=== PATIENT | male | born 1975 | race African-American/Black ===

== ENCOUNTER 2019-12-21 16:02 | Inpatient (IN) | payer OTHER, SELFPAY ==
[2019-12-21] VITALS (11 sets, daily range): BP systolic 100–165; BP diastolic 54–116; PULSE 73–93; RESP 14–21; TEMP 36.6–37.4; O2SAT 10–100; BMI 31.3
--- NOTE | ~2019-12-21 | CT_ITS ---
EXAMINATION: CT abdomen pelvis w con EXAM DATE: 12/21/2019 17:38 INDICATION: Abdominal pain, bleeding. Feeling weak and dizzy. TECHNIQUE: Spiral CT of the abdomen and pelvis was performed following intravenous injection of 100 m L Omnipaque 350. Axial, coronal and sagittal images were reviewed. The dose-length product (DLP) fo r this examination was 914.60 mGy-cm. The exposure was tailored according to patient size (auto mA e xposure control), and iterative reconstruction (ASIR) was used as additional dose reduction technique . There is no prior study for comparison. FINDINGS: The liver, spleen, adrenal glands and pancreas are unremarkable. Gallbladder is unremarkab le. No biliary obstruction. Portal and splenic veins are patent. Kidneys enhance symmetrically. T here is no hydronephrosis. The prostate is unremarkable. The bladder is unremarkable. There is no retroperitoneal or pelvic lymphadenopathy. The appendix is normal. The stomach and small bowel are unremarkable. There is colonic fluid, corre late for diarrhea. No wall thickening or pneumatosis. No free intraperitoneal gas. The heart is nor mal in size. There are no pericardial or pleural effusions. The lung bases are unremarkable. There are no osteoblastic or osteolytic lesions identified. IMPRESSION: Colonic fluid, correlate for diarrhea. Reviewed, dictated and finalized at location A.
[2019-12-21 16:49] LABS: Mean Corpuscular HGB Conc 29.4 g/dl (32-36); Mean Corpuscular Hemoglobin 21.4 pg (26-34); Mean Corpuscular Volume 72.7 fl (80-100); Mean Platelet Volume 8.3 fl (7.4-10.4); Platelet Count Result 542 k/mm3 (150-375); Red Blood Count 1.87 M/mm3 (4.6-6.20); Red Cell Distribution Width 18.1 % (11.5-14.5); White Blood Count 11.5 K/mm3 (4.5-10.0)
[2019-12-21 16:59] LABS: Hematocrit 13.6 % (42.0-52.0)
[2019-12-21 17:00] LABS: Alanine Aminotransferase 197 U/L (4-50); Albumin Level 3.4 g/dL (3.5-5.1); Alkaline Phosphatase 57 U/L (38-126); Anion Gap 5 mmol/L (8-16); Aspartate Amino Transferase 122 U/L (17-59); Bilirubin,Total < 0.1 mg/dL (0.2-1.3); Blood Urea Nitrogen 23 mg/dL (9-20); Calcium 8.3 mg/dL (8.4-10.2); Carbon Dioxide 26 mmol/L (22-30); Chloride 109 mmol/L (98-107); Estimated CRCL calculation 80 ml/min; Estimated Glomerular Filt Rate > 60; Glucose 126 mg/dL (75-110); Potassium 4.4 mmol/L (3.4-5.0); Sodium 140 mmol/L (137-145)
[2019-12-21 17:09] LABS: INR 1.1; Partial Thromboplastin Time 24.6 SECONDS (22.3-36.8); Prothrombin Time 14.1 Seconds (11.1-14.7)
[2019-12-21 17:10] LABS: Lymphocytes Absolute Manual 4.02 K/mm3 (1.1-4.5); Lymphocytes Percent Manual 35 % (18-44); Monocytes Absolute Manual 0.46 K/mm3 (0.1-0.90); Monocytes Percent Manual 4 % (3-9); Neutrophils Percent Manual 61 % (46-73); Total Cells Counted 100
[2019-12-21 17:11] LABS: Hypochromasia 2+ (NORMAL); Nucleated Red Blood Cells 7 %; Platelet Estimate Increased (Adequate); Schistocytes 1+ (NORMAL); Target Cells 2+ (NORMAL)
[2019-12-21 17:12] LABS: Atypical Lymphocytes Present; Ovalocytes 1+ (NORMAL)
--- NOTE | 2019-12-21 17:33 | ED.GENADULT ---
HPI - General Adult General Chief complaint: GI Bleed <Mati Montes PA-C - Last Filed: 12/21/19 17:45> Stated complaint: blood in stool <Mati Montes PA-C - Last Filed: 12/21/19 17:45> Time Seen by Provider: 12/21/19 16:54 <Mati Montes PA-C - Last Filed: 12/21/19 17:45> Source: patient and family <Mati Montes PA-C - Last Filed: 12/21/19 17:45> Mode of arrival: ambulatory <Mati Montes PA-C - Last Filed: 12/21/19 17:45> Limitations: no limitations <Mati Montes PA-C - Last Filed: 12/21/19 17:45> History of Present Illness HPI narrative: Patient is a 44-year-old male who presents with GI bleeding for roughly 2 weeks or more worse in the last 2 to 3 days passing bright red blood with clots patient notes over the last several days has felt very fatigued and weak patient notes some cramping of the abdomen that is intermittent patient denies any other illness or complaints or having taken anything [id number] for his symptoms patient notes today after having a bloody stool sustained syncopal episode while getting up patient notes his symptoms worsen with standing from sitting or lying <Mati Montes PA-C - Last Filed: 12/21/19 17:45> Related Data Allergies/adverse reactions: Allergies Allergy/AdvReac Type Severity Reaction Status Date / Time Sulfa (Sulfonamide Allergy Swelling Verified 12/21/19 16:18 Antibiotics) <Mati Montes PA-C - Last Filed: 12/21/19 17:45> Review of Systems Review of Systems: All systems reviewed & are unremarkable except as noted in HPI and below <Mati Montes PA-C - Last Filed: 12/21/19 17:45> [facility] Surgical History Surgical History: Surgical History (Updated 12/21/19 @ 17:41 by Mati Montes PA-C) H/O splenectomy <Mati Montes PA-C - Last Filed: 12/21/19 17:45> Social History Social History: Social History (Updated 12/21/19 @ 17:41 by Mati Montes PA-C) Smoking status: Current some day smoker <OWEN Rice Last Filed: 12/21/19 17:45> Exam Narrative: Exam Narrative: GENERAL: Ill and pale-appearing, well-nourished, and in no acute distress. HEAD: Normocephalic, atraumatic. EYES: PERRLA and EOMI. ENT: Nares clear, no rhinorrhea or epistaxis. Mucous membranes moist. NECK: Supple. No adenopathy or masses. CHEST: Clear to auscultation. No respiratory distress. No wheezes rales or rhonchi HEART: Regular rate and rhythm. No murmur heard. Normal peripheral pulses. ABDOMEN: Soft, mild tenderness of the abdomen worse on the left, nondistended, normal active bowel sounds. EXTREMITIES: Normal range of motion. No edema. SKIN: Warm, dry, no rash. NEURO: No focal deficits. Alert and oriented x3. Cranial nerves II through XII grossly intact PSYCH: Normal mood and affect. <OWEN Rice Last Filed: 12/21/19 17:45> Course Course Emergency Course: Patient with blood products ordered will be hydrated admitted to the hospital with GI consultation managed by the hospitalist service hemodynamically stable agreeing to stay in hospital for his anemia secondary to GI bleed <OWEN Rice Last Filed: 12/21/19 17:45> Consultations Consultation #1: Discussed case with hospitalist and kindergarten paraprofessional to have accepted the patient and will consult <OWEN Rice Last Filed: 12/21/19 17:45> Date: 12/21/19 <OWEN Rice Last Filed: 12/21/19 17:45> Time: 17:42 <OWEN Rice Last Filed: 12/21/19 17:45> Vital Signs Vital signs: Vital Signs Temperature 36.6 C 12/21/19 16:14 Pulse Rate 93 12/21/19 16:14 Respiratory Rate 18 12/21/19 16:14 Blood Pressure 111/59 L 12/21/19 16:14 Pulse Oximetry 10 L 12/21/19 16:14 Temperature 37.2 C 12/21/19 19:14 Pulse Rate 88 12/21/19 19:14 Respiratory Rate 18 12/21/19 19:14 Blood Pressure 165/116 H 12/21/19 19:14 Puls
[2019-12-21] MEDS: PANTOPRAZOLE SODIUM IV 40 MG VIAL IV PUSH (17:38)
[2019-12-21] MEDS: SODIUM CHLORIDE 0.9% IV 1,000 ML 999 ML IV CONT (17:38)
[2019-12-21 18:04] LABS: Immature Reticulocyte Fraction 35.2 % (3.0-15.9); Reticulocyte Percent 3.46 % (0.7-4.3)
[2019-12-21 18:05] LABS: Reticulocytes Absolute 0.06 B/L (32.2-175.7)
[2019-12-21 18:06] LABS: Lactate Dehydrogenase 369 U/L (313-618); Lipase 37 U/L (23-300)
[2019-12-21 18:07] LABS: Lactate Dehydrogenase 371 U/L (313-618)
[2019-12-21 18:15] LABS: Transferrin 331 mg/dL (206-381)
[2019-12-21 18:53] LABS: Iron < 10 ug/dL (49-181)
[2019-12-21 19:03] LABS: Percent Iron Saturation 2 % (20-50)
[2019-12-21 19:13] LABS: Folic Acid 15.5 ng/mL (2.76->20)
[2019-12-21 19:25] LABS: Thyroid Stimulating Hormone Reflex 0.439 uIU/mL (0.465-4.68)
[2019-12-21 19:29] LABS: Ferritin 6.09 ng/mL (17.9-464)
--- NOTE | 2019-12-21 19:30 | PC.NURSE ---
REPORT TO CANDIDO CLARK. CARE TRANSFERRED.
[2019-12-21 19:35] LABS: Hepatitis B Surface Antigen Negative (Negative)
[2019-12-21 19:40] LABS: HAV RESULT Negative (Negative); Hepatitis B Core IgM Result Negative (Negative)
[2019-12-21 19:55] LABS: Hepatitis C Virus Antibody Reactive (Negative)
[2019-12-21 20:30] LABS: Creatine Kinase 125 U/L (55-170)
[2019-12-21] MEDS: TUBING, BLOOD PLUM PUMP TUBING 1 EACH XX (20:33)
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
[2019-12-21] MEDS: SODIUM CHLORIDE 0.9% IV 250 ML 30 ML IV CONT (22:32)
[2019-12-21] MEDS: ONDANSETRON INJ 4 MG/2 ML VIAL IV PUSH (22:37)
[2019-12-22] VITALS (24 sets, daily range): BP systolic 102–141; BP diastolic 44–98; PULSE 69–91; RESP 14–24; TEMP 35.9–36.9; O2SAT 97–100
[2019-12-22] MEDS: ACETAMINOPHEN 325 MG TABLET 650 MG PO (00:56)
[2019-12-22 01:05] LABS: Free T4 Free Thyroxine Reflex 0.95 ng/dL (0.78-2.19)
[2019-12-22 03:45] LABS: Total Triiodothyronine (T3) 1.35 NG/ML (0.97-1.69)
[2019-12-22 05:09] LABS: Mean Corpuscular HGB Conc 30.4 g/dl (32-36); Mean Corpuscular Hemoglobin 24.3 pg (26-34); Mean Platelet Volume 8.8 fl (7.4-10.4); Platelet Count Result 441 k/mm3 (150-375); Red Blood Count 2.55 M/mm3 (4.6-6.20); Red Cell Distribution Width 19.2 % (11.5-14.5); White Blood Count 10.5 K/mm3 (4.5-10.0)
[2019-12-22 05:33] LABS: Alanine Aminotransferase 157 U/L (4-50); Albumin Level 2.9 g/dL (3.5-5.1); Alkaline Phosphatase 50 U/L (38-126); Anion Gap 3 mmol/L (8-16); Aspartate Amino Transferase 97 U/L (17-59); Bilirubin,Total 0.2 mg/dL (0.2-1.3); Blood Urea Nitrogen 17 mg/dL (9-20); Calcium 7.9 mg/dL (8.4-10.2); Carbon Dioxide 25 mmol/L (22-30); Chloride 112 mmol/L (98-107); Estimated CRCL calculation 75 ml/min; Estimated Glomerular Filt Rate > 60; Glucose 87 mg/dL (75-110); Magnesium 2.4 mg/dL (1.6-2.3); Potassium 4.1 mmol/L (3.4-5.0); Sodium 140 mmol/L (137-145)
[2019-12-22 06:07] LABS: Hematocrit 20.4 % (42.0-52.0); Hemoglobin 6.2 g/dL (14.0-18.0)
[2019-12-22 06:14] LABS: Eosinophils Absolute Manual 0.31 K/mm3 (0.02-0.5); Eosinophils Percent Manual 3 % (0-4); Hypochromasia 2+ (NORMAL); Lymphocytes Absolute Manual 4.41 K/mm3 (1.1-4.5); Monocytes Absolute Manual 0.63 K/mm3 (0.1-0.90); Monocytes Percent Manual 6 % (3-9); Neutrophils Percent Manual 49 % (46-73); Nucleated Red Blood Cells 3 %; Platelet Estimate Adequate (Adequate); Total Cells Counted 100
[2019-12-22 06:16] LABS: Ovalocytes 1+ (NORMAL); Target Cells 1+ (NORMAL)
[2019-12-22] MEDS: SODIUM CHLORIDE 0.9% IV 250 ML 30 ML IV CONT (06:55)
[2019-12-22] MEDS: PANTOPRAZOLE SODIUM IV 40 MG VIAL IV PUSH ×2 (08:53→21:07)
[2019-12-22 09:51] LABS: Hematocrit 23.5 % (42.0-52.0); Hemoglobin 7.4 g/dL (14.0-18.0)
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
[2019-12-22] MEDS: LACTATED RINGERS 1,000 ML 150 ML IV CONT (12:10)
--- NOTE | 2019-12-22 12:46 | WPDANESEPPF ---
Anes - Initial Pre Proc Eval Procedure: Operation Date: 12/22/19 13:00 Proposed Procedures p Esophagogastroduodenoscopy - Gideon Coughlin MD Date/Time: 12/22/19 12:46 Surgeon: Ammy Martin PA-C Pre Op Diagnosis: Bloody stools, abdominal pain, near syncope. Patient Data Age: 44 Gender: M Height: 5 ft 10 in Weight: 99.1 kg Last Vital Signs Temp 97.7 F 12/22/19 12:11 Pulse 71 12/22/19 12:11 Resp 16 12/22/19 12:11 BP 132/68 12/22/19 12:11 Pulse Ox 99 12/22/19 12:11 Allergies Allergy/AdvReac Type Severity Reaction Status Date / Time Sulfa (Sulfonamide Allergy Swelling Verified 12/21/19 16:18 Antibiotics) Home Medications Medication Instructions Recorded Confirmed Type B-complex with vitamin C [Vitamin 1 cap PO DAILY 12/21/19 12/21/19 History B Complex With C] amino acids [Amino Acid] 1 cap PO DAILY 12/21/19 12/21/19 History aspirin [Adult Aspirin] 81 mg PO DAILY 12/21/19 12/21/19 History multivit with min-folic acid 1 tablet PO DAILY 12/21/19 12/21/19 History [Adult One Daily Multivitamin] Laboratory Tests 12/21/19 12/21/19 12/21/19 16:35 16:35 16:35 WBC 11.5 K/mm3 H K/mm3 (4.5-10.0) RBC 1.87 M/mm3 L M/mm3 (4.6-6.20) Hgb 4.0 g/dL L* g/dL (14.0-18.0) Hct 13.6 % L* % (42.0-52.0) MCV 72.7 fl L fl (80-100) MCH 21.4 pg L pg (26-34) MCHC 29.4 g/dl L g/dl (32-36) RDW 18.1 % H % (11.5-14.5) Plt Count 542 k/mm3 H k/mm3 (150-375) MPV 8.3 fl fl (7.4-10.4) Immature Gran % (Auto) Not Reportable Neut % (Auto) Not Reportable Lymph % (Auto) Not Reportable Blanco % (Auto) Not Reportable Eos % (Auto) Not Reportable Baso % (Auto) Not Reportable Lymph # (Auto) Not Reportable [place] # (Auto) Not Reportable Eos # (Auto) Not Reportable Baso # (Auto) Not Reportable Abs Immat Gran (auto) Not Reportable Absolute Neuts (auto) Not Reportable Absolute Nucleated RBC Not Reportable Total Counted 100 Neutrophils % (Manual) 61 % % (46-73) Lymphocytes % (Manual) 35 % % (18-44) Monocytes % (Manual) 4 % % (3-9) Eosinophils % (Manual) Nucleated RBC % Not Reportable Abs Lymphs (Manual) 4.02 K/mm3 K/mm3 (1.1-4.5) Abs Monocytes (Manual) 0.46 K/mm3 K/mm3 (0.1-0.90) Absolute Eos (Manual) Nucleated RBCs 7 % % Atypical Lymphocytes Present Platelet Estimate Increased (Adequate) Hypochromasia 2+ (NORMAL) Target Cells 2+ (NORMAL) Ovalocytes 1+ (NORMAL) Schistocytes 1+ (NORMAL) Absolute Retic Percent Retic Immature Retic Fraction Retic Hgb Content Haptoglobin PT 14.1 Seconds Seconds (11.1-14.7) INR 1.1 APTT 24.6 SECONDS SECONDS (22.3-36.8) Sodium 140 mmol/L mmol/L (137-145) Potassium 4.4 mmol/L mmol/L (3.4-5.0) Chloride 109 mmol/L H mmol/L (98-107) Carbon Dioxide 26 mmol/L mmol/L (22-30) Anion Gap 5 mmol/L L mmol/L (8-16) BUN 23 mg/dL H mg/dL (9-20) Creatinine 1.20 mg/dL mg/dL (0.7-1.3) Estim Creat Clear Calc 80 ml/min ml/min Estimated GFR > 60 (59 - ) Glucose 126 mg/dL H mg/dL (75-110) Calcium 8.3 mg/dL L mg/dL (8.4-10.2) Magnesium Iron TIBC % Saturation Transferrin Ferritin Total Bilirubin < 0.1 mg/dL L mg/dL (0.2-1.3) Direct Bilirubin AST 122 U/L H U/L (17-59) ALT 197 U/L H U/L (4-50) Alkaline Phosph
--- NOTE | 2019-12-22 13:51 | PM.IMPN ---
Progress Note: A&P Assessment and Plan (1) Profound anemia: Qualifiers: Anemia type: other cause Code(s): D64.9 - Anemia, unspecified Status: Acute Assessment and Plan: Secondary to acute GI blood loss. Hemoglobin at presentation was 4.0. He was transfused a total of 4 units. Hgb stabilized at 7.4. Iron studies are consistent with iron deficiency anemia secondary to acute blood loss. Continue to monitor H&H closely and transfuse as needed Will plan to initiate oral iron supplementation at discharge. (2) Acute GI bleeding: Code(s): K92.2 - Gastrointestinal hemorrhage, unspecified Status: Acute Assessment and Plan: He had noticed blood in his stools for 18 days that was described as dark maroon and mixed with clots, occasionally with bright red blood. This is felt to be secondary to duodenal ulcer which was discovered on EGD today. No evidence of ongoing bleeding seen on EGD. monitor H&H as above Avoid NSAIDs and aspirin (3) Duodenal ulcer: Code(s): K26.9 - Duodenal ulcer, unspecified as acute or chronic, without hemorrhage or perforation Status: Acute Assessment and Plan: Evident on EGD today performed by Dr. Coughlin. General surgery is following and recommendations are appreciated Continue pantoprazole 40 mg b.i.d. [place] diet per GI recommendations (4) Elevated LFTs: Code(s): R79.89 - Other specified abnormal findings of blood chemistry Status: Acute Assessment and Plan: LFTs elevated at presentation with unclear etiology. CK within normal limits. Hepatitis-C antibody was reactive Which could explain elevation. LFTs improved today, though still elevated. HCV RNA is pending. Continue to monitor LFTs (5) Tobacco use: Code(s): Z72.0 - Tobacco use Status: Acute Assessment and Plan: He smokes half pack per day. He has declined the need for a nicotine patch. Continue to encourage smoking cessation (6) Near syncope: Code(s): R55 - Syncope and collapse Status: Acute Assessment and Plan: He reported an episode on 12/21/2019 in which he felt lightheaded, had darkening of his vision, and fell onto his couch. this is secondary to hypovolemia from blood loss and profound anemia. No further symptoms and no additional episodes of syncope or presyncope. Continue to monitor H&H as above and transfuse as needed with Hgb threshold <7.0. Subjective Date/time seen: 12/22/19 13:51 Interval history: Date of service: 12/22/2019 Kahlil Faulkner is a 44-year-old male with a history of tobacco use who is seen in follow-up for acute upper GI bleed. He has just returned from EGD performed this afternoon and he tolerated the procedure well. He reports that he is feeling much better today than he has in several days. his abdominal pain is significantly improved, though he still notes some vague epigastric discomfort. He has not eaten anything yet but is feeling hungry and is eager to eat. he has not had any additional episodes of bloody stools. Last bowel movement was yesterday. He denies any additional episodes of bleeding. He denies dizziness or lightheadedness. He was able to ambulate to the restroom without difficulty and remained asymptomatic. He denies shortness of breath, chest pain, palpitations, weakness, or fatigue. he has a mild headache. He has no additional concerns at this time. Review of Systems Review of Systems: Narrative: Twelve systems with pertinent positives and negatives as per HPI. Exam Narrative: Exam Narrative: Mr. Faulkner is a well-nourished, well-appearing 44-year-old male who is lying supine in bed. He appears comfortable and is in NARD. HR 74, BP 102/57, T 97.5?, 98% on room air Neuro: awake, alert and oriented x4, speech clear, no focal neuro deficits noted HEENMT: normocephalic, atraumatic, EOMI, sclerae anicteric
[2019-12-22] MEDS: FERROUS SULFATE 324 MG TABLET PO (17:33)
--- NOTE | 2019-12-22 18:13 | PC.NURSE ---
Pt medical status - report given to Richard RN- pt transferred to room 240 via bed accompanied by staff- personal belongings with pt
[2019-12-22 18:29] LABS: Hematocrit 23.6 % (42.0-52.0); Hemoglobin 7.6 g/dL (14.0-18.0)
--- NOTE | 2019-12-22 18:31 | PC.NURSE ---
This patient, Kahlil Faulkner, was received from IMU on 12/22/19 at 1831. Patient/family oriented to unit policies and routines
[2019-12-23] VITALS (7 sets, daily range): BP systolic 96–144; BP diastolic 55–73; PULSE 71–85; RESP 18–20; TEMP 36.2–36.6; O2SAT 97–100
[2019-12-23] MEDS: diphenhydrAMINE HCl CAP 25 MG CAPSULE PO (01:43)
[2019-12-23] MEDS: ACETAMINOPHEN 325 MG TABLET 650 MG PO (01:43)
[2019-12-23 06:10] LABS: Hematocrit 22.2 % (42.0-52.0); Mean Corpuscular HGB Conc 31.5 g/dl (32-36); Mean Corpuscular Hemoglobin 24.7 pg (26-34); Mean Corpuscular Volume 78.4 fl (80-100); Mean Platelet Volume 8.3 fl (7.4-10.4); Platelet Count Result 409 k/mm3 (150-375); Red Blood Count 2.83 M/mm3 (4.6-6.20); Red Cell Distribution Width 18.6 % (11.5-14.5); White Blood Count 6.5 K/mm3 (4.5-10.0)
[2019-12-23 06:38] LABS: Alanine Aminotransferase 141 U/L (4-50); Albumin Level 2.9 g/dL (3.5-5.1); Alkaline Phosphatase 48 U/L (38-126); Anion Gap 0 mmol/L (8-16); Aspartate Amino Transferase 89 U/L (17-59); Bilirubin Indirect 0.2 mg/dL (0-1.1); Bilirubin,Total 0.2 mg/dL (0.2-1.3); Blood Urea Nitrogen 15 mg/dL (9-20); Calcium 8.1 mg/dL (8.4-10.2); Carbon Dioxide 28 mmol/L (22-30); Chloride 110 mmol/L (98-107); Estimated CRCL calculation 75 ml/min; Estimated Glomerular Filt Rate > 60; Glucose 110 mg/dL (75-110); Sodium 138 mmol/L (137-145)
[2019-12-23 06:51] LABS: Potassium 3.8 mmol/L (3.4-5.0)
[2019-12-23] MEDS: SODIUM CHLORIDE 0.9% IV 250 ML 30 ML IV CONT (07:55)
[2019-12-23] MEDS: FERROUS SULFATE 324 MG TABLET PO ×2 (07:55→18:10)
[2019-12-23] MEDS: PANTOPRAZOLE SODIUM IV 40 MG VIAL IV PUSH ×2 (07:56→21:25)
--- NOTE | 2019-12-23 08:16 | WPDANESPN ---
Anes - Prog Note Post-Op Date/Time: 12/23/19 08:16 Cardiovascular status: normal Respiratory status: normal Airway patency: baseline Mental status: baseline Post-Op hydration status: normal Vital Signs: Last Vital Signs Temp 36.2 C L 12/23/19 07:50 Pulse 71 12/23/19 07:50 Resp 18 12/23/19 07:50 BP 117/63 12/23/19 07:50 Pulse Ox 97 12/23/19 07:50 Pain Score (VAS): 1 I/O: Intake & Output 12/22/19 12/23/19 12/23/19 23:59 07:59 15:59 Intake Total 480 650 Output Total 550 Balance 480 100 Laboratory Tests 12/23/19 05:39 12/23/19 05:39 12/21/19 12/22/19 12/22/19 16:35 09:36 18:12 WBC RBC Hgb 7.4 L 7.6 L Hct 23.5 L 23.6 L MCV MCH MCHC RDW Plt Count MPV Sodium Potassium Chloride Carbon Dioxide Anion Gap BUN Creatinine Estim Creat Clear Calc Estimated GFR Glucose Calcium Total Bilirubin Direct Bilirubin Indirect Bilirubin AST ALT Alkaline Phosphatase Total Protein Albumin Blood Type O Positive Antibody Screen Negative Crossmatch See Detail 12/23/19 12/23/19 05:39 05:39 WBC 6.5 RBC 2.83 L Hgb 7.0 L Hct 22.2 L MCV 78.4 L MCH 24.7 L MCHC 31.5 L RDW 18.6 H Plt Count 409 H MPV 8.3 Sodium 138 Potassium 3.8 Chloride 110 H Carbon Dioxide 28 Anion Gap 0 L BUN 15 Creatinine 1.30 Estim Creat Clear Calc 75 Estimated GFR > 60 Glucose 110 Calcium 8.1 L Total Bilirubin 0.2 Direct Bilirubin 0.0 Indirect Bilirubin 0.2 AST 89 H ALT 141 H Alkaline Phosphatase 48 Total Protein 6.0 L Albumin 2.9 L Blood Type Antibody Screen Crossmatch Patient Feedback: Patient satisfied with anesthetic care.
--- NOTE | 2019-12-23 08:33 | WPDGIPROGNO ---
Progress Note: A&P Assessment and Plan (1) Duodenal ulcer: Code(s): K26.9 - Duodenal ulcer, unspecified as acute or chronic, without hemorrhage or perforation Status: Acute Assessment and Plan: continue with ppi bid, avoid nsaid's no signs of bleeding (2) Acute GI bleeding: Code(s): K92.2 - Gastrointestinal hemorrhage, unspecified Status: Acute Assessment and Plan: he is receiving another unit of blood transfusion, then monitor hb (3) Profound anemia: Qualifiers: Anemia type: other cause Code(s): D64.9 - Anemia, unspecified Status: Acute Assessment and Plan: he will need outpatient colonoscopy to be done by Dr Coughlin (4) Near syncope: Code(s): R55 - Syncope and collapse Status: Acute (5) Elevated LFTs: Code(s): R79.89 - Other specified abnormal findings of blood chemistry Status: Acute Assessment and Plan: probably from HCV, awaiting HCV RNA (patient admits history of snorting cocaine years ago) (6) Hepatitis C antibody positive in blood: Code(s): R76.8 - Other specified abnormal immunological findings in serum Status: Acute Subjective Date/time seen: 12/23/19 08:33 Interval history: Dr Coughlin found several small cratered ulcers in duodenum, non-bleeding. Patient is eating today regular breakfast, no abdominal pain or melena. He is getting another unit of PRBC Review of Systems Review of Systems: All systems reviewed & are unremarkable except as noted in HPI and below Exam Const: General: comfortable and no acute distress HENMT: General nose exam: Normal nares present Eyes: General: appearance normal, both eyes and all related structures Neck: Neck: no JVD Resp: Auscultation: clear to auscultation bilaterally Cardio: Rate: regular rate Rhythm: regular rhythm GI: Inspection: non-distended GI Palp: Yes Soft to palpation Skin: General skin exam: normal color Neuro: General: gait normal Speech: normal speech Extrem: General: normal to inspection Psych: Mental Status: mental status grossly normal Objective Data Vital Signs Vital Signs: Vital Signs - 24 hr 12/22/19 10:00 12/22/19 12:00 12/22/19 12:11 Temperature 97.7 F Pulse Rate 72 89 71 Respiratory Rate 16 Blood Pressure 132/68 Pulse Oximetry 99 12/22/19 13:34 12/22/19 13:44 12/22/19 13:54 Temperature Pulse Rate 84 77 77 Respiratory Rate 24 H 14 14 Blood Pressure 109/98 H 118/74 122/59 L Pulse Oximetry 97 97 99 12/22/19 14:20 12/22/19 16:00 12/22/19 18:30 Temperature 97.4 F L 97.2 F L 98.0 F Pulse Rate 74 70 89 Respiratory Rate 16 16 16 Blood Pressure 121/87 116/58 L 121/59 L Pulse Oximetry 100 100 100 12/22/19 20:00 12/22/19 23:57 12/23/19 04:00 Temperature 97.5 F L 97.7 F 97.5 F L Pulse Rate 79 71 75 Respiratory Rate 18 18 20 Blood Pressure 114/58 L 141/61 H 96/66 L Pulse Oximetry 100 100 100 12/23/19 07:50 Temperature 97.1 F L Pulse Rate 71 Respiratory Rate 18 Blood Pressure 117/63 Pulse Oximetry 97 Intake/Output Intake/Output: Intake & Output 12/20/19 12/21/19 12/22/19 12/23/19 23:59 23:59 23:59 23:59 Intake Total 1350 1954 650 Output Total 1450 550 Balance 1350 504 100 Meds/Results Medications: Active Medications Generic Name Dose Route Start Last Admin Trade Name Freq PRN Reason Stop Dose Admin Acetaminophen 650 mg 12/22/19 00:42 12/23/19 01:43 Acetaminophen 325 Mg Tablet PO 650 mg Q4H PRN Administration Pain Rated 1-3 Ferrous Sulfate 324 mg 12/22/19 17:00 12/23/19 07:55 Ferrous Sulfate 324 Mg Tablet PO 324 mg BIDWM MATTHEW Administration Sodium Chloride 250 mls @ 30 mls/hr 12/23/19 06:22 12/23/19 07:55 Normal Saline Iv IV CONT 12/23/19 14:41 30 mls/hr .[id number] STA Administration Ondansetron HCl 4 mg 12/21/19 17:45 12/21/19 22:37 Ondansetron Inj 4 Mg/2 Ml Vial IV PUSH 4 mg Q4H PRN Administration Naus
--- NOTE | 2019-12-23 10:37 | PM.IMPN ---
Progress Note: A&P Assessment and Plan (1) Profound anemia: Qualifiers: Anemia type: other cause Code(s): D64.9 - Anemia, unspecified Status: Acute Assessment and Plan: Secondary to acute GI blood loss. Hemoglobin at presentation was 4.0 and he was transfused 4 units of pRBC. Hgb stabilized. Iron studies are consistent with iron deficiency anemia secondary to acute blood loss. Hemoglobin this morning was 7.0 and blood pressure was low, however patient was asymptomatic. Currently receiving 1 unit pRBC. Repeat H&H 1 hour following transfusion. Continue to monitor H&H closely and transfuse as needed continue p.o. iron supplementation Outpatient colonoscopy to be scheduled per GI recommendations (2) Acute GI bleeding: Code(s): K92.2 - Gastrointestinal hemorrhage, unspecified Status: Acute Assessment and Plan: He had noticed blood in his stools for 18 days that was described as dark maroon and mixed with clots, occasionally with bright red blood. This is felt to be secondary to duodenal ulcer which was discovered on EGD 12/21. No evidence of ongoing bleeding seen on EGD. monitor H&H as above Avoid NSAIDs and aspirin (3) Duodenal ulcer: Code(s): K26.9 - Duodenal ulcer, unspecified as acute or chronic, without hemorrhage or perforation Status: Acute Assessment and Plan: Evident on EGD performed by Dr. Coughlin on 12/22/2019. GI is following and recommendations are appreciated Continue pantoprazole 40 mg b.i.d. Leon diet per GI recommendations (4) Elevated LFTs: Code(s): R79.89 - Other specified abnormal findings of blood chemistry Status: Acute Assessment and Plan: LFTs elevated at presentation with unclear etiology. CK within normal limits. Hepatitis-C antibody was reactive which could explain elevation. LFTs improved today, though still elevated. HCV RNA is pending. Continue to monitor LFTs (5) Tobacco use: Code(s): Z72.0 - Tobacco use Status: Acute Assessment and Plan: He reports he typically smoked 1/2 pack per day, though recently has cut down significantly as smoking was making him lightheaded. Before coming to the hospital he was smoking maybe 1-2 cigarettes per day. He is interested in complete smoking cessation as he is already significantly reduced his daily cigarettes. I counseled him on smoking cessation for approximately 6 minutes. He has declined the need for a nicotine patch. (6) Near syncope: Code(s): R55 - Syncope and collapse Status: Acute Assessment and Plan: He reported an episode on 12/21/2019 in which he felt lightheaded, had darkening of his vision, and fell onto his couch. This is secondary to hypovolemia from blood loss and profound anemia. No further symptoms and no additional episodes of syncope or presyncope. Continue to monitor H&H as above and transfuse as needed with Hgb threshold <7.0. Subjective Date/time seen: 12/23/19 10:37 Interval history: Date of service: 12/22/2019 Kahlil Faulkner is a 44-year-old male with a history of tobacco use who is seen in follow-up for acute upper GI bleed. he is currently receiving another unit of blood as his hemoglobin declined again this morning. He remained asymptomatic and continues to report that he is feeling well. He has not had any additional episodes of bloody stools. He has not had any episodes of dizziness or lightheadedness but also notes that he has not gotten up yet today. He continues to endorse very mild epigastric discomfort that has improved significantly. his appetite has been good. He denies shortness of breath, palpitations, fatigue. no headaches. is no additional concerns at this time. Review of Systems Review of Systems: Narrative: Twelve systems reviewed with pertinent positives and negatives as per HPI. Exam Narrative: Exam Narrative:
[2019-12-23 13:26] LABS: Hematocrit 25.8 % (42.0-52.0); Hemoglobin 8.3 g/dL (14.0-18.0)
[2019-12-23 18:28] LABS: Hematocrit 25.7 % (42.0-52.0); Hemoglobin 8.1 g/dL (14.0-18.0)
[2019-12-24 05:49] LABS: Hematocrit 25.9 % (42.0-52.0); Hemoglobin 8.1 g/dL (14.0-18.0); Mean Corpuscular HGB Conc 31.3 g/dl (32-36); Mean Corpuscular Hemoglobin 25.6 pg (26-34); Mean Platelet Volume 8.9 fl (7.4-10.4); Platelet Count Result 411 k/mm3 (150-375); Red Blood Count 3.16 M/mm3 (4.6-6.20); Red Cell Distribution Width 18.8 % (11.5-14.5); White Blood Count 6.9 K/mm3 (4.5-10.0)
[2019-12-24 06:00] VITALS: BP 110/56; PULSE 68; RESP 18; TEMP 36.2; O2SAT 100
[2019-12-24 06:14] LABS: Alanine Aminotransferase 160 U/L (4-50); Albumin Level 3.1 g/dL (3.5-5.1); Alkaline Phosphatase 49 U/L (38-126); Anion Gap 3 mmol/L (8-16); Aspartate Amino Transferase 101 U/L (17-59); Bilirubin,Total 0.1 mg/dL (0.2-1.3); Blood Urea Nitrogen 11 mg/dL (9-20); Calcium 8.4 mg/dL (8.4-10.2); Carbon Dioxide 26 mmol/L (22-30); Chloride 110 mmol/L (98-107); Estimated CRCL calculation 81 ml/min; Estimated Glomerular Filt Rate > 60; Glucose 100 mg/dL (75-110); Sodium 139 mmol/L (137-145)
[2019-12-24] MEDS: FERROUS SULFATE 324 MG TABLET PO ×2 (08:19→17:14)
[2019-12-24] MEDS: PANTOPRAZOLE SODIUM IV 40 MG VIAL IV PUSH ×2 (08:19→20:08)
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
--- NOTE | 2019-12-24 11:37 | PM.IMPN ---
Progress Note: A&P Assessment and Plan (1) Profound anemia: Qualifiers: Anemia type: other cause Code(s): D64.9 - Anemia, unspecified Status: Acute Assessment and Plan: Secondary to acute GI blood loss. Hemoglobin at presentation was 4.0 and he was transfused 4 units of pRBC. Hgb stabilized. Iron studies are consistent with iron deficiency anemia secondary to acute blood loss. On 12/22, Hgb was 7.0 and BP was low, therefore he was transfused an additional unit. Hgb 8.1 and Hct 25.9 today. Episode of bright red bleeding per rectum last night. Continue to monitor H&H closely and transfuse as needed with Hgb threshold <7.0 continue p.o. iron supplementation Given episode of brbpr, plan for inpatient colonoscopy tomorrow (2) Acute GI bleeding: Code(s): K92.2 - Gastrointestinal hemorrhage, unspecified Status: Acute Assessment and Plan: He had noticed blood in his stools for 18 days that was described as dark maroon and mixed with clots, occasionally with bright red blood. This is, at least in part, secondary to duodenal ulcer which was discovered on EGD 12/21. No evidence of ongoing bleeding seen on EGD. Episode of brbpr last night as noted above. Appreciate GI recommendations monitor H&H as above Avoid NSAIDs and aspirin Inpatient colonoscopy tomorrow (3) Duodenal ulcer: Code(s): K26.9 - Duodenal ulcer, unspecified as acute or chronic, without hemorrhage or perforation Status: Acute Assessment and Plan: Evident on EGD performed by Dr. Coughlin on 12/22/2019. GI is following and recommendations are appreciated Continue pantoprazole 40 mg b.i.d. [place] diet per GI recommendations (4) Elevated LFTs: Code(s): R79.89 - Other specified abnormal findings of blood chemistry Status: Acute Assessment and Plan: LFTs elevated at presentation with unclear etiology. CK within normal limits. Hepatitis-C antibody was reactive which could explain elevation. Minor increase in LFTs today but still improved from presentation. ALP wnl. HCV RNA is pending. Continue to monitor LFTs (5) Tobacco use: Code(s): Z72.0 - Tobacco use Status: Acute Assessment and Plan: He reports he typically smoked 1/2 pack per day, though recently has cut down significantly as smoking was making him lightheaded given his anemia. Before coming to the hospital he was smoking maybe 1-2 cigarettes per day. He is interested in complete smoking cessation as he is already significantly reduced his daily cigarettes. I counseled him on smoking cessation for approximately 6 minutes. He has declined the need for a nicotine patch. (6) Near syncope: Code(s): R55 - Syncope and collapse Status: Acute Assessment and Plan: He reported an episode on 12/21/2019 in which he felt lightheaded, had darkening of his vision, and fell onto his couch. This is secondary to hypovolemia from blood loss and profound anemia. No further symptoms and no additional episodes of syncope or presyncope. Continue to monitor H&H as above and transfuse as needed with Hgb threshold <7.0. Subjective Date/time seen: 12/24/19 11:37 Interval history: Date of service: 12/24/2019 Kahlil Faulkner is a 44-year-old male with a history of tobacco use who is seen in follow-up for acute upper GI bleed. he had an episode of bright red bleeding per rectum last night. He remained asymptomatic and continues to report that he is feeling well. He reported mild pain with passage of stool and thinks that he might have been straining. He has not had any dizziness, lightheadedness, shortness of breath, chest pain, or palpitations. His appetite has been good. No headaches. Denies epigastric pain. He has no additional concerns at this time. Review of Systems Review of Systems: Narrative: Twelve systems reviewed with pertinent positives and ne
[2019-12-24 14:00] VITALS: BP 135/72; PULSE 77; RESP 18; TEMP 36.4; O2SAT 100
[2019-12-24] MEDS: PEG (High)/E-LYTE SOLN 4,000 ML BTL 4000 ML PO (16:09)
[2019-12-24] MEDS: BISACODYL 5 MG TABLET EC 20 MG PO (17:14)
[2019-12-24 21:46] VITALS: BP 138/87; PULSE 64; RESP 16; TEMP 36.7; O2SAT 100
[2019-12-25] MEDS: MAGNESIUM CITRATE 300 ML BTL PO (04:03)
[2019-12-25 05:56] VITALS: BP 142/62; PULSE 62; RESP 16; TEMP 36.7; O2SAT 96
[2019-12-25 05:58] LABS: Hematocrit 27.8 % (42.0-52.0); Hemoglobin 8.5 g/dL (14.0-18.0); Mean Corpuscular HGB Conc 30.6 g/dl (32-36); Mean Corpuscular Hemoglobin 25.4 pg (26-34); Mean Platelet Volume 8.8 fl (7.4-10.4); Platelet Count Result 444 k/mm3 (150-375); Red Blood Count 3.35 M/mm3 (4.6-6.20); Red Cell Distribution Width 19.2 % (11.5-14.5); White Blood Count 14.3 K/mm3 (4.5-10.0)
[2019-12-25 06:09] LABS: Alanine Aminotransferase 185 U/L (4-50); Albumin Level 3.5 g/dL (3.5-5.1); Alkaline Phosphatase 59 U/L (38-126); Anion Gap 8 mmol/L (8-16); Aspartate Amino Transferase 120 U/L (17-59); Bilirubin,Total 0.2 mg/dL (0.2-1.3); Blood Urea Nitrogen 10 mg/dL (9-20); Calcium 8.6 mg/dL (8.4-10.2); Carbon Dioxide 26 mmol/L (22-30); Chloride 106 mmol/L (98-107); Estimated CRCL calculation 81 ml/min; Estimated Glomerular Filt Rate > 60; Glucose 84 mg/dL (75-110); Potassium 3.6 mmol/L (3.4-5.0); Sodium 140 mmol/L (137-145)
[2019-12-25] MEDS: PANTOPRAZOLE SODIUM IV 40 MG VIAL IV PUSH (09:00)
--- NOTE | 2019-12-25 09:45 | PC.NURSE ---
To GI Lab per IFRAH lakhani. Report given.
[2019-12-25 10:24] VITALS: BP 118/70; PULSE 66; RESP 18; TEMP 36.8; O2SAT 98
[2019-12-25] MEDS: LACTATED RINGERS 1,000 ML 150 ML IV CONT (10:28)
[2019-12-25 11:22] VITALS: BP 82/40; PULSE 84; RESP 16; O2SAT 98
[2019-12-25 11:32] VITALS: BP 104/56; PULSE 74; RESP 18; O2SAT 100
[2019-12-25 11:42] VITALS: BP 104/60; PULSE 73; RESP 19; O2SAT 100
--- NOTE | 2019-12-25 12:01 | PC.NURSE ---
Returned from GI Lab. Report received from AMBER Torres.
[2019-12-25 14:00] VITALS: BP 130/64; PULSE 72; RESP 15; TEMP 37.1; O2SAT 100
[2019-12-25 14:38] LABS: Basophils Absolute Auto 0.1 K/mm3 (0.0-0.1); Basophils Percent Auto 0.7 % (0.2-1.2); Eosinophils Absolute Auto 0.2 K/mm3 (0-0.3); Eosinophils Percent Auto 1.6 % (0-4.4); Hematocrit 28.5 % (42.0-52.0); Hemoglobin 8.8 g/dL (14.0-18.0); Immature Granulocyte Absolute 0.04 K/mm3 (0.00-0.031); Immature Granulocyte Percent A 0.3 % (0-0.5); Lymphocytes Absolute Auto 2.63 K/mm3 (0.9-3.2); Lymphocytes Percent Auto 22.1 % (18.3-44.2); Mean Corpuscular HGB Conc 30.9 g/dl (32-36); Mean Corpuscular Hemoglobin 25.7 pg (26-34); Mean Corpuscular Volume 83.3 fl (80-100); Mean Platelet Volume 8.8 fl (7.4-10.4); Monocytes Absolute Auto 1.4 K/mm3 (0.1-0.6); Monocytes Percent Auto 11.3 % (2.6-8.5); Neutrophils Absolute Auto 7.6 K/mm3 (1.3-6.7); Nucleated Red Blood Cells Absolute Auto 0.2 K/mm3 (0.0-0.012); Nucleated Red Blood Cells Perc 1.8 % (0.0-0.2); Platelet Count Result 436 k/mm3 (150-375); Red Blood Count 3.42 M/mm3 (4.6-6.20); Red Cell Distribution Width 19.2 % (11.5-14.5); White Blood Count 11.9 K/mm3 (4.5-10.0)
--- NOTE | 2019-12-25 14:54 | PM.DS ---
DS: Admitting Diagnosis Admitting Diagnosis Admitting Diagnosis: GI Bleed anemia DS: Discharge Diagnosis Discharge Diagnosis (1) Profound anemia: Qualifiers: Anemia type: other cause Code(s): D64.9 - Anemia, unspecified Status: Acute Assessment and Plan: Secondary to acute GI blood loss. Hemoglobin at presentation was 4.0 and he was transfused 4 units of pRBC. Hgb stabilized. Iron studies consistent with iron deficiency anemia secondary to acute blood loss. On 12/22, Hgb was 7.0 and BP was low, therefore he was transfused an additional unit. He had an episode of bright red bleeding per rectum on 12/24/19 and colonscopy was performed on 12/25/19, showing internal hemorrhoids with stigmata of bleeding. H&H was closely monitored and remained stable. Hgb 8.8 and Hct 28.5 at time of discharge. He was started on PO iron supplementation. Aspirin was stopped. (2) Acute GI bleeding: Code(s): K92.2 - Gastrointestinal hemorrhage, unspecified Status: Acute Assessment and Plan: He had noticed blood in his stools for 18 days that was described as dark maroon and mixed with clots, occasionally with bright red blood. This is secondary to duodenal ulcer which was discovered on EGD 12/21 and internal hemorrhoid which was discovered on colonoscopy on 12/24. He was seen in consultation by gastroenterology and will follow up with Dr. Coughlin as an outpatient. H&H stabilized as noted above. NSAIDs and aspirin should be avoided. He was started on protonix. (3) Duodenal ulcer: Code(s): K26.9 - Duodenal ulcer, unspecified as acute or chronic, without hemorrhage or perforation Status: Acute Assessment and Plan: Evident on EGD performed by Dr. Coughlin on 12/22/2019. [place] diet was recommended. Continue pantoprazole 40 mg b.i.d. No aspirin or NSAIDs. (4) Internal hemorrhoid, bleeding: Code(s): K64.8 - Other hemorrhoids Status: Acute Assessment and Plan: Colonoscopy performed 12/25/[address] Coughlin showed multiple large-size uncomplicated internal hemorrhoids in the rectum with stigmata of bleeding. High-fiber diet was recommended. He will start daily Metamucil. He may follow-up with Dr. Coughlin as an outpatient for possible hemorrhoid banding. (5) Elevated LFTs: Code(s): R79.89 - Other specified abnormal findings of blood chemistry Status: Acute Assessment and Plan: LFTs elevated at presentation with unclear etiology. CK within normal limits. Hepatitis-C antibody was reactive which could explain elevation. HCV RNA is pending. He will follow-up with Dr. 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 (6) Tobacco use: Code(s): Z72.0 - Tobacco use Status: Acute Assessment and Plan: He reports he typically smoked 1/2 pack per day, though recently has cut down significantly as smoking was making him lightheaded given his anemia. Before coming to the hospital he was smoking maybe 1-2 cigarettes per day. He is interested in complete smoking cessation as he is already significantly reduced his daily cigarettes. I counseled him on smoking cessation for approximately 6 minutes. He declined the need for nicotine patch. (7) Near syncope: Code(s): R55 - Syncope and collapse Status: Acute Assessment and Plan: He reported an episode on 12/21/2019 in which he felt lightheaded, had darkening of his vision, and fell onto his couch. This is secondary to hypovolemia from blood loss and profound anemia. No further symptoms and no additional episodes of syncope or presyncope. H&H stabilized. DS: Summary Hospital Course Reason for hospitalization: Rectal bleeding Hospital Course: date of admission: 12/21/2019 date of discharge: 12/25/2019 Kahlil Faulkner is a 44-year-old male with history of tobacco abuse who presented to the emergency department on 12/21/2019 with complaints of bloody
[2019-12-25] MEDS: FERROUS SULFATE 324 MG TABLET PO (16:15)
[2019-12-27 20:08] LABS: Haptoglobin 84 mg/dL (43-212)
== END 2019-12-25 16:50 | disposition home or self-care (01) | DRG 241 ==
LOC: ANHED 17:47 → ANHIMU 22:53 → ANH2MED 12-23 07:45 → ANHIMU 12-27 13:00
PROVIDERS: Emergency Medicine Emergency Medical Services; Internal Medicine Gastroenterology; Physician Assistant; Admitting Provider Internal Medicine; Emergency Provider Emergency Medicine; Visit Provider Physician Assistant
PROC: 0DJ08ZZ Inspection of Upper Intestinal Tract, Via Natural or Artificial Opening Endoscopic (ICD-10-PCS; CPT 43235; principal; 2019-12-22 13:00)
PROC: 0DJD8ZZ Inspection of Lower Intestinal Tract, Via Natural or Artificial Opening Endoscopic (ICD-10-PCS; CPT 45378; principal; 2019-12-25 10:30)
DX: K26.0 Acute duodenal ulcer with hemorrhage (principal); K64.8 Other hemorrhoids; D62 Acute posthemorrhagic anemia; E86.1 Hypovolemia; R55 Syncope and collapse; F17.210 Nicotine dependence, cigarettes, uncomplicated; R76.8 Other specified abnormal immunological findings in serum; R79.89 Other specified abnormal findings of blood chemistry; Z28.21 Immunization not carried out because of patient refusal; Z79.82 Long term (current) use of aspirin; Z88.2 Allergy status to sulfonamides
CPT/HCPCS: 36415; 36430; 74177; 80053; 80074; 82248; 82550; 82607; 82728; 82746; 83010; 83540; 83550; 83615; 83690; 83735; 84439; 84443; 84466; 84480; 85014; 85018; 85025; 85027; 85046; 85610; 85730; 86850; 86900; 86901; 86920; 86923; 87081; 87522; 96374; 99285; A9270; C9113; J2405; J2704; J7030; J7050; J7120; P9016; Q9967

== ENCOUNTER 2020-08-28 17:42 | Inpatient (IN) | payer OTHER, SELFPAY ==
[2020-08-28] VITALS (15 sets, daily range): BP systolic 114–163; BP diastolic 57–94; PULSE 83–99; RESP 16–21; TEMP 37.1–37.3; O2SAT 97–100; BMI 31.8
[2020-08-28 17:58] LABS: Basophils Percent Auto 0.4 % (0.2-1.2); Eosinophils Absolute Auto 0.2 K/mm3 (0-0.3); Eosinophils Percent Auto 1.6 % (0-4.4); Immature Granulocyte Absolute 0.12 K/mm3 (0.00-0.031); Immature Granulocyte Percent A 1.3 % (0-0.5); Lymphocytes Absolute Auto 2.92 K/mm3 (0.9-3.2); Lymphocytes Percent Auto 31.7 % (18.3-44.2); Mean Corpuscular Hemoglobin 19.6 pg (26-34); Mean Corpuscular Volume 72.7 fl (80-100); Monocytes Absolute Auto 1.4 K/mm3 (0.1-0.6); Monocytes Percent Auto 15.5 % (2.6-8.5); Neutrophils Absolute Auto 4.6 K/mm3 (1.3-6.7); Neutrophils Percent Auto 49.5 % (45.5-73.1); Nucleated Red Blood Cells Absolute Auto 1.2 K/mm3 (0.0-0.012); Nucleated Red Blood Cells Perc 13.3 % (0.0-0.2); Platelet Count Result 715 k/mm3 (150-375); Red Cell Distribution Width 21.8 % (11.5-14.5); White Blood Count 9.2 K/mm3 (4.5-10.0)
[2020-08-28 18:08] LABS: Alanine Aminotransferase 145 U/L (4-50); Albumin Level 3.7 g/dL (3.5-5.1); Alkaline Phosphatase 41 U/L (38-126); Anion Gap 8 mmol/L (8-16); Aspartate Amino Transferase 110 U/L (17-59); Bilirubin,Total 0.2 mg/dL (0.2-1.3); Blood Urea Nitrogen 12 mg/dL (9-20); Calcium 8.6 mg/dL (8.4-10.2); Carbon Dioxide 23 mmol/L (22-30); Chloride 108 mmol/L (98-107); Estimated CRCL calculation 62 ml/min; Estimated Glomerular Filt Rate 57; Glucose 140 mg/dL (75-110); INR 0.9; Partial Thromboplastin Time 24.4 SECONDS (22.3-36.8); Potassium 4.2 mmol/L (3.4-5.0); Prothrombin Time 13.2 Seconds (11.1-14.7); Sodium 139 mmol/L (137-145)
[2020-08-28 18:11] LABS: Hematocrit 18.9 % (42.0-52.0); Hemoglobin 5.1 g/dL (14.0-18.0)
[2020-08-28 18:14] LABS: Acanthocytes 1+ (NORMAL); Anisocytosis 3+ (NORMAL); Hypochromasia 2+ (NORMAL); Ovalocytes 1+ (NORMAL); Platelet Estimate Increased (Adequate); Poikilocytosis 2+ (NORMAL); Target Cells 2+ (NORMAL)
[2020-08-28 18:15] LABS: Schistocytes 1+ (NORMAL)
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
[2020-08-28] MEDS: SODIUM CHLORIDE 0.9% IV 250 ML 30 ML IV CONT (20:13)
[2020-08-28] MEDS: PANTOPRAZOLE SODIUM IV 40 MG VIAL IV PUSH (21:06)
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
--- NOTE | 2020-08-28 21:35 | ADMGEN ---
This patient, Kahlil Faulkner, was admitted to IMU Room 213-01. Patient/family oriented to hospital policies and general routines including ID bracelet, bed and alarms, visiting hours, pain management, procedures, bathroom and other care routines, personal items, smoking policy, room service/diet, and visiting hours. Information on how to activate the Rapid Response Team has been discussed. Patient/Family are encouraged to report perceived risks to care and to ask questions if they do not understand what they are told or what they should do.
[2020-08-28] MEDS: PEG (High)/E-LYTE SOLN 4,000 ML BTL 4000 ML PO (23:22)
[2020-08-28] MEDS: SODIUM CHLORIDE 0.9% IV 1,000 ML 125 ML IV CONT (23:22)
[2020-08-29] VITALS (27 sets, daily range): BP systolic 100–150; BP diastolic 44–92; PULSE 79–99; RESP 12–24; TEMP 35.7–37.6; O2SAT 97–100
[2020-08-29 05:02] LABS: Basophils Absolute Auto 0.1 K/mm3 (0.0-0.1); Basophils Percent Auto 0.6 % (0.2-1.2); Eosinophils Absolute Auto 0.1 K/mm3 (0-0.3); Eosinophils Percent Auto 1.4 % (0-4.4); Hematocrit 22.5 % (42.0-52.0); Immature Granulocyte Absolute 0.08 K/mm3 (0.00-0.031); Immature Granulocyte Percent A 0.9 % (0-0.5); Lymphocytes Percent Auto 36.5 % (18.3-44.2); Mean Corpuscular HGB Conc 28.9 g/dl (32-36); Mean Corpuscular Hemoglobin 21.5 pg (26-34); Mean Corpuscular Volume 74.3 fl (80-100); Monocytes Absolute Auto 1.7 K/mm3 (0.1-0.6); Monocytes Percent Auto 18.7 % (2.6-8.5); Neutrophils Absolute Auto 3.8 K/mm3 (1.3-6.7); Neutrophils Percent Auto 41.9 % (45.5-73.1); Nucleated Red Blood Cells Absolute Auto 1.2 K/mm3 (0.0-0.012); Nucleated Red Blood Cells Perc 13.1 % (0.0-0.2); Platelet Count Result 643 k/mm3 (150-375); Red Blood Count 3.03 M/mm3 (4.6-6.20); Red Cell Distribution Width 22.1 % (11.5-14.5)
[2020-08-29 05:18] LABS: Anion Gap 4 mmol/L (8-16); Blood Urea Nitrogen 9 mg/dL (9-20); Calcium 7.7 mg/dL (8.4-10.2); Carbon Dioxide 25 mmol/L (22-30); Chloride 108 mmol/L (98-107); Estimated CRCL calculation 70 ml/min; Estimated Glomerular Filt Rate > 60; Glucose 82 mg/dL (75-110); Potassium 4.3 mmol/L (3.4-5.0); Sodium 137 mmol/L (137-145)
[2020-08-29 05:39] LABS: Hemoglobin 6.5 g/dL (14.0-18.0)
[2020-08-29 05:40] LABS: Anisocytosis 2+ (NORMAL); Hypochromasia 2+ (NORMAL); Platelet Estimate Adequate (Adequate)
[2020-08-29] MEDS: SODIUM CHLORIDE 0.9% IV 1,000 ML 125 ML IV CONT (09:32)
[2020-08-29] MEDS: PANTOPRAZOLE SODIUM IV 40 MG VIAL 80 MG IV PUSH (09:51)
[2020-08-29] MEDS: TUBING, BLOOD PLUM PUMP TUBING 1 EACH XX (09:56)
--- NOTE | 2020-08-29 10:33 | WPDANESEPPF ---
Anes - Initial Pre Proc Eval Procedure: Operation Date: 08/29/20 11:00 Proposed Procedures p Esophagogastroduodenoscopy & Colonoscopy - Gideon Coughlin MD Date/Time: 08/29/20 10:33 Surgeon: Jass Perry MD Pre Op Diagnosis: GI Bleed, anemia Patient Data Age: 44 Gender: M Height: 1.78 m Weight: 99.2 kg Last Vital Signs Temp 36.9 C 08/29/20 10:26 Pulse 88 08/29/20 10:26 Resp 18 08/29/20 10:26 BP 116/70 08/29/20 10:26 Pulse Ox 99 08/29/20 10:26 Allergies Allergy/AdvReac Type Severity Reaction Status Date / Time Sulfa (Sulfonamide Allergy Swelling Verified 12/25/19 14:01 Antibiotics) Home Medications Medication Instructions Recorded Confirmed Type Adult One Daily Multivitamin 1 tablet PO DAILY 12/21/19 08/28/20 History Amino Acid 1 cap PO DAILY 12/21/19 08/28/20 History B-complex with vitamin C 1 cap PO DAILY 12/21/19 08/28/20 History ferrous sulfate 324 mg PO BIDWM #30 tablet 12/23/19 08/28/20 Rx bisacodyl 5 mg PO DAILY 08/28/20 08/28/20 History omeprazole magnesium [Prilosec OTC] 20 mg PO DAILY 08/28/20 08/28/20 History Laboratory Tests 08/28/20 08/28/20 08/28/20 17:53 17:53 17:53 WBC 9.2 K/mm3 K/mm3 (4.5-10.0) RBC 2.60 M/mm3 L M/mm3 (4.6-6.20) Hgb 5.1 g/dL L* D g/dL (14.0-18.0) Hct 18.9 % L* % (42.0-52.0) MCV 72.7 fl L fl (80-100) MCH 19.6 pg L pg (26-34) MCHC 27.0 g/dl L g/dl (32-36) RDW 21.8 % H % (11.5-14.5) Plt Count 715 k/mm3 H D k/mm3 (150-375) MPV 8.0 fl fl (7.4-10.4) Immature Gran % (Auto) 1.3 % H % (0-0.5) Neut % (Auto) 49.5 % % (45.5-73.1) Lymph % (Auto) 31.7 % % (18.3-44.2) Clarke % (Auto) 15.5 % H % (2.6-8.5) Eos % (Auto) 1.6 % % (0-4.4) Baso % (Auto) 0.4 % % (0.2-1.2) Lymph # (Auto) 2.92 K/mm3 K/mm3 (0.9-3.2) Clarke # (Auto) 1.4 K/mm3 H K/mm3 (0.1-0.6) Eos # (Auto) 0.2 K/mm3 K/mm3 (0-0.3) Baso # (Auto) 0.0 K/mm3 K/mm3 (0.0-0.1) Abs Immat Gran (auto) 0.12 K/mm3 H K/mm3 (0.00-0.031) Absolute Neuts (auto) 4.6 K/mm3 K/mm3 (1.3-6.7) Absolute Nucleated RBC 1.2 K/mm3 H K/mm3 (0.0-0.012) Nucleated RBC % 13.3 % H % (0.0-0.2) Platelet Estimate Increased (Adequate) Hypochromasia 2+ (NORMAL) Poikilocytosis 2+ (NORMAL) Anisocytosis 3+ (NORMAL) Target Cells 2+ (NORMAL) Ovalocytes 1+ (NORMAL) Acanthocytes (Spur) 1+ (NORMAL) Schistocytes 1+ (NORMAL) PT 13.2 Seconds Seconds (11.1-14.7) INR 0.9 APTT 24.4 SECONDS SECONDS (22.3-36.8) Sodium 139 mmol/L mmol/L (137-145) Potassium 4.2 mmol/L mmol/L (3.4-5.0) Chloride 108 mmol/L H mmol/L (98-107) Carbon Dioxide 23 mmol/L mmol/L (22-30) Anion Gap 8 mmol/L mmol/L (8-16) BUN 12 mg/dL mg/dL (9-20) Creatinine 1.60 mg/dL H mg/dL (0.7-1.3) Estim Creat Clear Calc 62 ml/min ml/min Estimated GFR 57 L (59 - ) Glucose 140 mg/dL H mg/dL (75-110) Calcium 8.6 mg/dL mg/dL (8.4-10.2) Total Bilirubin 0.2 mg/dL mg/dL (0.2-1.3) AST 110 U/L H U/L (17-59) ALT 145 U/L H U/L (4-50) Alkaline Phosphatase 41 U/L U/L (38-126) Total Protein 7.0 g/dL g/dL (6.3-8.2) Albumin 3.7 g/dL g/dL (3.5-5.1) Blood Type Antibody Screen Crossmatch 08/28/20 08/29/20 08/29/20 17:53 04:48 04:48 WBC 9.0 K/mm3 K/mm3 (4.5-10.0) RBC 3.03 M/mm3 L M/mm3 (4.6-6.20) Hgb 6.5 g/dL L* g/dL (14.0-18.0) Hct 22.5 % L % (42.0-52.0) MCV 74.3 fl L fl (80-100) MCH 21.5 pg L D
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
[2020-08-29] MEDS: LACTATED RINGERS 1,000 ML 150 ML IV CONT (10:44)
--- NOTE | 2020-08-29 13:07 | PM.IMPN ---
Progress Note: A&P Assessment and Plan (1) Hepatitis C: Code(s): B19.20 - Unspecified viral hepatitis C without hepatic coma Status: Acute Assessment and Plan: Monitor LFTs Follow-up with marriage performer as an outpatient (2) Acute GI bleeding: Code(s): K92.2 - Gastrointestinal hemorrhage, unspecified Status: Acute Assessment and Plan: Blood transfusion p.r.n. Monitor vital signs and hemoglobin GI are following (3) Profound anemia: Qualifiers: Anemia type: other cause Code(s): D64.9 - Anemia, unspecified Status: Acute Assessment and Plan: Blood transfusion Monitor vital signs closely Monitor hemoglobin Subjective Date/time seen: 08/29/20 13:07 Interval history: Patient is resting comfortably, that last bowel movement was bloody, patient does not seem acute distress. Patient denied any pain. Exam Const: General: cooperative and no acute distress HENMT: Head: normal to inspection Eyes: General: appearance normal, both eyes and all related structures Neck: Neck: normal visual inspection Chest: Chest palpation & inspection: normal inspection of the chest Resp: Effort & Inspection: normal respiratory effort Cardio: Jugular venous distension: no JVD Rate: regular rate GI: Inspection: normal to inspection and non-distended Objective Data Vital Signs Vital Signs: Vital Signs - 24 hr 08/28/20 17:44 08/28/20 17:48 08/28/20 18:50 Temperature 99.1 F 99 F Pulse Rate 99 83 98 Respiratory Rate 16 16 18 Blood Pressure 147/62 H 114/58 L 125/94 H Pulse Oximetry 100 97 99 08/28/20 19:25 08/28/20 20:01 08/28/20 20:02 Temperature 98.7 F 98.7 F Pulse Rate 90 89 90 Respiratory Rate 17 16 18 Blood Pressure 163/80 H 155/62 H 155/62 H Pulse Oximetry 100 98 100 08/28/20 20:26 08/28/20 21:12 08/28/20 21:25 Temperature 99.0 F 99.2 F 98.9 F Pulse Rate 88 89 93 Respiratory Rate 19 21 H 16 Blood Pressure 128/63 114/66 143/64 H Pulse Oximetry 100 100 98 08/28/20 21:26 08/28/20 22:00 08/28/20 23:18 Temperature 98.9 F 99 F Pulse Rate 93 89 83 Respiratory Rate 16 16 Blood Pressure 143/64 H 114/58 L Pulse Oximetry 98 97 08/28/20 23:24 08/28/20 23:25 08/28/20 23:36 Temperature 99 F 99 F 98.9 F Pulse Rate 83 83 87 Respiratory Rate 17 17 16 Blood Pressure 126/57 L 128/64 126/64 Pulse Oximetry 98 98 100 08/29/20 00:00 08/29/20 00:36 08/29/20 02:00 Temperature 99.6 F 99.6 F Pulse Rate 87 87 87 Respiratory Rate 16 16 Blood Pressure 112/66 112/66 Pulse Oximetry 99 99 08/29/20 04:00 08/29/20 06:00 08/29/20 08:00 Temperature 99.5 F 98.7 F Pulse Rate 87 84 85 Respiratory Rate 16 12 Blood Pressure 115/70 114/66 Pulse Oximetry 99 100 08/29/20 09:48 08/29/20 10:00 08/29/20 10:04 Temperature 96.3 F L 96.7 F L Pulse Rate 80 80 82 Respiratory Rate 16 16 Blood Pressure 147/73 H 139/77 Pulse Oximetry 100 97 08/29/20 10:26 08/29/20 10:49 08/29/20 11:39 Temperature 98.5 F 98.5 F Pulse Rate 88 84 99 Respiratory Rate 18 20 18 Blood Pressure 116/70 132/65 100/46 L Pulse Oximetry 99 98 100 08/29/20 11:49 08/29/20 11:59 08/29/20 12:00 Temperature 98 F 98.8 F Pulse Rate 94 98 91 Respiratory Rate 14 24 H 12 Blood Pressure 100/44 L 101/52 L 111/58 L Pulse Oximetry 100 98 100 Intake/Output Intake/Output: Intake & Output 08/26/20 08/27/20 08/28/20 08/29/20 23:59 23:59 23:59 23:59 Intake Total 100 1845 Output Total 300 Balance 100 1545 Meds/Results Medications: Active Medications Generic Name Dose Route Start Last Admin Trade Name Freq PRN Reason Stop Dose Admin Sodium Chloride 1,000 mls @ 125 mls/hr 08/28/20 18:45 08/29/20 12:31 Normal Saline Iv IV CONT 125 mls/hr .Q8H MATTHEW Infusion Acetaminophen 1,000 mg in 100 mls @ 400 mls/hr 08/28/20 23:02 08/28/20 23:57 Ofirmev 1,000 Mg Ivpb IVPB 08/29/20 23:03 Infused Q6H PRN Infusion Pain Rated 4-6 Sod
--- NOTE | 2020-08-29 13:46 | PM.CNGS ---
Assessment and Plan Assessment and plan (1) Internal hemorrhoid, bleeding: Code(s): K64.8 - Other hemorrhoids Status: Acute Assessment and Plan: EGD and colonoscopy performed today due to profound anemia. He has a history of a duodenal ulcer but this appeared to be healed on the EGD. Only finding was large, ulcerated hemorrhoids with stigmata of bleeding, which GI feels is the cause of his anemia. We have been asked to evaluate the patient for surgical intervention. I have discussed the patient's case with Dr. Ledesma. We will proceed with a hemorrhoidectomy today by Dr. Ledesma. I discussed this with the patient and he agrees to proceed. Will make him NPO and obtain consent. Dr. Ledesma will further discuss the surgery with the patient pre-operatively. Thank you for allowing us to see the patient in consultation. (2) Acute blood loss anemia: Code(s): D62 - Acute posthemorrhagic anemia Status: Acute Assessment and Plan: GI consulted and performed an EGD and colonoscopy. It is felt that the internal hemorrhoids are the source for his profound anemia. See plan above. Monitor H/H. (3) Hepatitis C: Code(s): B19.20 - Unspecified viral hepatitis C without hepatic coma Status: Acute Assessment and Plan: Recently found to have hepatitis C antibody after having work-up for mildly elevated LFTs. GI is following and plans to refer him to a specialist at [facility]. Additional Plan I have discussed the patient's case and plan of care with Dr. Ledesma. History of Present Illness Consult details Consult date: 08/29/20 Reason for consult: other (Bleeding internal hemorrhoids with anemia) Requesting physician: Gideon Coughlin MD Narrative: This is a 44-year-old male who presented to the emergency department with rectal bleeding, light-headedness, and dizziness. He has a history of anemia with GI bleeding from a duodenal ulcer in December of 2019. He has noticed rectal bleeding on and off for years, but this got worse in December. He was treated and discharged back home and instructed to follow up with a surgeon for the hemorrhoids. He attempted to make an appointment but has not been seen yet. He reports that he has now had rectal bleeding again for the past 3 weeks, along with pain with bowel movements. He notices a bulge that protrudes from his rectum after a bowel movement that he manually reduces at home. Recently, he began to have light-headedness and dizziness at home, and remembered these symptoms that correlated with his anemia in the past, therefore he came to the ER for evaluation. He was found to have profound anemia with a hemoglobin of 5.1. The patient was admitted for the anemia to the Hospitalist service. GI was consulted. Hepatitis serology was also performed on his last admission due to elevated LFTs, and he was found to have positive hepatitis C antibody. This is newly diagnosed and he is supposed to be referred to [facility] as an outpatient from GI. They performed an EGD and colonoscopy today. EGD showed that his duodenal ulcer had healed and there were no findings that would account for upper GI bleeding on the endoscopy. Colonoscopy showed large ulcerated internal hemorrhoids with stigmata of bleeding, but no other potential sources for his anemia. He has received now a total of 3 units of packed red blood cells since his admission. With the third unit transfused after his hemoglobin this morning of 6.5. He also has thrombocytosis with a platelet count in the 600's today. Our service has been consulted for surgical evaluation of the bleeding internal hemorrhoids and profound anemia. The patient is now seen on the medical floor. No other specific complaints at this time. Review of Systems Review of Systems: All systems reviewed & are unremarkable except as noted in HPI and below Constitutional: Constitutional: Reports as per HPI, Denies chills, Reports fatigue and Denies fever(s) ENT: Reports system reviewed an
--- NOTE | 2020-08-29 13:54 | WPDANESEPPF ---
Anes - Initial Pre Proc Eval Procedure: Operation Date: 08/29/20 11:00 Proposed Procedures p Esophagogastroduodenoscopy & Colonoscopy - Gideon Coughlin MD Operation Date: 08/29/20 14:00 Proposed Procedures p Hemorrhoidectomy - Ezequiel Ledesma MD Date/Time: 08/29/20 13:54 Surgeon: Jass Perry MD Pre Op Diagnosis: GI Bleed, anemia Patient Data Age: 44 Gender: M Height: 1.78 m Weight: 99.2 kg Last Vital Signs Temp 37.1 C 08/29/20 12:00 Pulse 91 08/29/20 12:00 Resp 12 08/29/20 12:00 BP 111/58 L 08/29/20 12:00 Pulse Ox 100 08/29/20 12:00 Allergies Allergy/AdvReac Type Severity Reaction Status Date / Time Sulfa (Sulfonamide Allergy Swelling Verified 12/25/19 14:01 Antibiotics) Home Medications Medication Instructions Recorded Confirmed Type Adult One Daily Multivitamin 1 tablet PO DAILY 12/21/19 08/28/20 History Amino Acid 1 cap PO DAILY 12/21/19 08/28/20 History B-complex with vitamin C 1 cap PO DAILY 12/21/19 08/28/20 History ferrous sulfate 324 mg PO BIDWM #30 tablet 12/23/19 08/28/20 Rx bisacodyl 5 mg PO DAILY 08/28/20 08/28/20 History omeprazole magnesium [Prilosec OTC] 20 mg PO DAILY 08/28/20 08/28/20 History Laboratory Tests 08/28/20 08/28/20 08/28/20 17:53 17:53 17:53 WBC 9.2 K/mm3 K/mm3 (4.5-10.0) RBC 2.60 M/mm3 L M/mm3 (4.6-6.20) Hgb 5.1 g/dL L* D g/dL (14.0-18.0) Hct 18.9 % L* % (42.0-52.0) MCV 72.7 fl L fl (80-100) MCH 19.6 pg L pg (26-34) MCHC 27.0 g/dl L g/dl (32-36) RDW 21.8 % H % (11.5-14.5) Plt Count 715 k/mm3 H D k/mm3 (150-375) MPV 8.0 fl fl (7.4-10.4) Immature Gran % (Auto) 1.3 % H % (0-0.5) Neut % (Auto) 49.5 % % (45.5-73.1) Lymph % (Auto) 31.7 % % (18.3-44.2) Garfield % (Auto) 15.5 % H % (2.6-8.5) Eos % (Auto) 1.6 % % (0-4.4) Baso % (Auto) 0.4 % % (0.2-1.2) Lymph # (Auto) 2.92 K/mm3 K/mm3 (0.9-3.2) Garfield # (Auto) 1.4 K/mm3 H K/mm3 (0.1-0.6) Eos # (Auto) 0.2 K/mm3 K/mm3 (0-0.3) Baso # (Auto) 0.0 K/mm3 K/mm3 (0.0-0.1) Abs Immat Gran (auto) 0.12 K/mm3 H K/mm3 (0.00-0.031) Absolute Neuts (auto) 4.6 K/mm3 K/mm3 (1.3-6.7) Absolute Nucleated RBC 1.2 K/mm3 H K/mm3 (0.0-0.012) Nucleated RBC % 13.3 % H % (0.0-0.2) Platelet Estimate Increased (Adequate) Hypochromasia 2+ (NORMAL) Poikilocytosis 2+ (NORMAL) Anisocytosis 3+ (NORMAL) Target Cells 2+ (NORMAL) Ovalocytes 1+ (NORMAL) Acanthocytes (Spur) 1+ (NORMAL) Schistocytes 1+ (NORMAL) PT 13.2 Seconds Seconds (11.1-14.7) INR 0.9 APTT 24.4 SECONDS SECONDS (22.3-36.8) Sodium 139 mmol/L mmol/L (137-145) Potassium 4.2 mmol/L mmol/L (3.4-5.0) Chloride 108 mmol/L H mmol/L (98-107) Carbon Dioxide 23 mmol/L mmol/L (22-30) Anion Gap 8 mmol/L mmol/L (8-16) BUN 12 mg/dL mg/dL (9-20) Creatinine 1.60 mg/dL H mg/dL (0.7-1.3) Estim Creat Clear Calc 62 ml/min ml/min Estimated GFR 57 L (59 - ) Glucose 140 mg/dL H mg/dL (75-110) Calcium 8.6 mg/dL mg/dL (8.4-10.2) Total Bilirubin 0.2 mg/dL mg/dL (0.2-1.3) AST 110 U/L H U/L (17-59) ALT 145 U/L H U/L (4-50) Alkaline Phosphatase 41 U/L U/L (38-126) Total Protein 7.0 g/dL g/dL (6.3-8.2) Albumin 3.7 g/dL g/dL (3.5-5.1) Blood Type Antibody Screen Crossmatch 08/28/20 08/29/20 08/29/20 17:53 04:48 04:48 WBC 9.0 K/mm3 K/mm3 (4.5-10.0) RBC 3.03 M/mm3 L M/mm3 (4.6-6.20) Hgb 6.5 g/dL L* g/dL (14.0-18.0)
[2020-08-29] MEDS: LACTATED RINGERS 1,000 ML 30 ML IV CONT ×2 (14:30→15:56)
--- NOTE | 2020-08-29 14:42 | WPDHPUPDATE1 ---
History and Physical Update Update Date/Time: 08/29/20 14:42 History and Physical has been reviewed, including an updated exam of the patient. There are NO changes in the patient's condition. Risks, benefits, and alternatives have been discussed and questions answered. Patient agrees to proceed with procedure.
[2020-08-29] MEDS: BUPIVACAINE HCL 0.5% PF 30 ML VIAL INFILTRATE (15:11)
--- NOTE | 2020-08-29 16:26 | W.PM.PROC2 ---
Procedure Note - Detailed Date of Procedure 08/29/20 Pre-op Diagnosis Bleeding internal and external hemorrhoids with prolapse Post-op Diagnosis same Procedure Performed Excision internal and external hemorrhoids left lateral position. Surgeon Ezequiel Ledesma MD Mechanical Design Engineer Elisha Hinds CERTIFIED HISTOLOGIC TECHNICIAN Anesthesia general and local (0.5% MARCAINE WITH EPINEPHRINE, EXPAREL) Indications Patient is been having hemorrhoidal bleeding off and on for several years. For the last 3 weeks it has been much more steady with bright red blood. He came into the hospital as severely anemic. He has been transfused blood. He had an EGD today which was negative for a bleeding source. Colonoscopy showed large internal hemorrhoids with stigmata of bleeding. No other source of bleeding was noted. He is taken to surgery now for hemorrhoidectomy. Findings Patient had huge internal hemorrhoids in the left lateral position of the rectum. There were definitely signs of bleeding. There were external hemorrhoids associated as well. Description of Procedure The patient was taken to surgery and induced into general anesthesia. He was turned into prone ashly-knife position. The buttocks were taped apart. Prep and drape was carried out. Hill-Cadet anoscope was were used and the anal rectal canal was inspected. Large internal hemorrhoids in the left lateral position were noted. There were associated external hemorrhoids as well. Local anesthetic using 0.5% Marcaine with epinephrine was infiltrated using 20 cc deep subdermal and 20 cc interest sphincteric. The hemorrhoidal complex on the left side was then exposed using Hill-Cadet anoscope was. The large internal hemorrhoids were excised. The accompanying external hemorrhoids were excised as well. They were so large that we had to remove some of the hemorrhoids as we were performing the excision. Thus there were few pieces of hemorrhoids that were passed to pathology in the single specimen. The wound was closed with running locking 4 0 chromic suture. Two different 4 0 chromic sutures were run in this fashion to achieve good hemostasis. These were tied together just prior to proceeding with closure of the external hemorrhoidal excision. The remaining 4 0 chromic suture was then used to close the external hemorrhoid excision in running fashion as well. The suture line and hemorrhoidectomy site was then inspected thoroughly. No bleeding was noted or other problems such as ischemia. Exparel was then infiltrated all around the area of the excision for postoperative anesthetic affect. The wound was dressed with Xeroform gauze, fluffs and promise panties. The patient was returned to a supine position. He was awakened and taken to recovery in good condition. Sponge and needle counts were correct x2. Estimated Blood Loss 50 Urine Output 300 Drains No Packing No Pathology yes (Several pieces of the large left lateral internal and external hemorrhoids.) Complications None Condition stable Disposition PACU
[2020-08-29] MEDS: HYDROcodone/acetaminophen (*CRX) 5-325 MG TABLET 1 TAB PO (18:37)
[2020-08-29 19:21] LABS: Hematocrit 27.4 % (42.0-52.0)
[2020-08-29] MEDS: MORPHINE SULFATE (*CRX) 2 MG/ML INJ IV PUSH (20:21)
[2020-08-29] MEDS: HYDROcodone/acetaminophen (*CRX) 10-325 MG TABLET 1 TAB PO (22:46)
[2020-08-30] VITALS (17 sets, daily range): BP systolic 130–152; BP diastolic 66–86; PULSE 82–92; RESP 16–20; TEMP 36.2–37; O2SAT 99–100
[2020-08-30] MEDS: MORPHINE SULFATE (*CRX) 4 MG/ML INJ IV PUSH ×3 (00:48→05:42)
[2020-08-30] MEDS: ONDANSETRON INJ 4 MG/2 ML VIAL IV PUSH (00:48)
[2020-08-30] MEDS: diphenhydrAMINE HCl CAP 25 MG CAPSULE PO (03:33)
[2020-08-30 05:27] LABS: Basophils Percent Auto 0.2 % (0.2-1.2); Hematocrit 24.3 % (42.0-52.0); Hemoglobin 7.3 g/dL (14.0-18.0); Immature Granulocyte Percent A 0.6 % (0-0.5); Lymphocytes Absolute Auto 1.61 K/mm3 (0.9-3.2); Lymphocytes Percent Auto 8.9 % (18.3-44.2); Mean Corpuscular Hemoglobin 22.5 pg (26-34); Mean Platelet Volume 8.4 fl (7.4-10.4); Monocytes Absolute Auto 2.2 K/mm3 (0.1-0.6); Monocytes Percent Auto 12.3 % (2.6-8.5); Neutrophils Absolute Auto 14.2 K/mm3 (1.3-6.7); Nucleated Red Blood Cells Absolute Auto 1.2 K/mm3 (0.0-0.012); Nucleated Red Blood Cells Perc 6.4 % (0.0-0.2); Platelet Count Result 691 k/mm3 (150-375); Red Blood Count 3.24 M/mm3 (4.6-6.20); Red Cell Distribution Width 22.5 % (11.5-14.5); White Blood Count 18.2 K/mm3 (4.5-10.0)
[2020-08-30 05:42] LABS: Anion Gap 7 mmol/L (8-16); Blood Urea Nitrogen 10 mg/dL (9-20); Calcium 7.8 mg/dL (8.4-10.2); Carbon Dioxide 23 mmol/L (22-30); Chloride 106 mmol/L (98-107); Estimated CRCL calculation 70 ml/min; Estimated Glomerular Filt Rate > 60; Glucose 114 mg/dL (75-110); Phosphorus 3.8 mg/dL (2.5-4.5); Potassium 4.5 mmol/L (3.4-5.0); Sodium 136 mmol/L (137-145)
[2020-08-30 05:48] LABS: Anisocytosis 2+ (NORMAL); Hypochromasia 3+ (NORMAL); Platelet Estimate Adequate (Adequate)
[2020-08-30 07:10] LABS: Ferritin 8.46 ng/mL (17.9-464)
[2020-08-30 07:15] LABS: Iron < 10 ug/dL (49-181)
--- NOTE | 2020-08-30 07:16 | PM.PNGS ---
Progress Note: A&P Assessment and Plan (1) Internal and external bleeding hemorrhoids: Code(s): K64.4 - Residual hemorrhoidal skin tags; K64.8 - Other hemorrhoids Status: Acute Assessment and Plan: Postoperative pain is severe. Will change to VICE INVESTIGATOR. (2) Acute blood loss anemia: Code(s): D62 - Acute posthemorrhagic anemia Status: Acute Assessment and Plan: H&H improving. Bleeding source controlled. Subjective Subjective Date/Time Seen: 08/30/20 07:16 Post Op day: 1 Patient reports: still having pain (Having severe rectal pain) and afebrile Exam GI: Rectal Exam: other (No bruising minimal swelling, no hematoma) Other: Normal postop appearance Objective Data Vital Signs Vital Signs: Vital Signs - 24 hr 08/29/20 08:00 08/29/20 09:48 08/29/20 10:00 Temperature 37.1 C 35.7 C L Pulse Rate 85 80 80 Respiratory Rate 12 16 Blood Pressure 114/66 147/73 H Pulse Oximetry 100 100 08/29/20 10:04 08/29/20 10:26 08/29/20 10:49 Temperature 35.9 C L 36.9 C 36.9 C Pulse Rate 82 88 84 Respiratory Rate 16 18 20 Blood Pressure 139/77 116/70 132/65 Pulse Oximetry 97 99 98 08/29/20 11:39 08/29/20 11:49 08/29/20 11:59 Temperature 36.6 C Pulse Rate 99 94 98 Respiratory Rate 18 14 24 H Blood Pressure 100/46 L 100/44 L 101/52 L Pulse Oximetry 100 100 98 08/29/20 12:00 08/29/20 14:00 08/29/20 14:11 Temperature 37.1 C 36.4 C L Pulse Rate 91 88 84 Respiratory Rate 12 16 Blood Pressure 111/58 L 150/74 H Pulse Oximetry 100 100 08/29/20 15:56 08/29/20 16:00 08/29/20 16:10 Temperature 36.5 C 37.1 C Pulse Rate 89 90 82 Respiratory Rate 12 14 14 Blood Pressure 125/74 139/92 H 125/69 Pulse Oximetry 100 100 100 08/29/20 16:25 08/29/20 16:40 08/29/20 16:55 Temperature Pulse Rate 82 81 79 Respiratory Rate 14 16 16 Blood Pressure 122/81 138/89 136/90 Pulse Oximetry 100 100 97 08/29/20 17:10 08/29/20 17:30 08/29/20 18:00 Temperature Pulse Rate 79 94 91 Respiratory Rate 16 Blood Pressure 139/89 Pulse Oximetry 100 08/29/20 20:00 08/30/20 00:00 08/30/20 04:00 Temperature 36.9 C 36.6 C 37.0 C Pulse Rate 88 90 92 Respiratory Rate 16 16 16 Blood Pressure 118/66 134/66 139/68 Pulse Oximetry 100 100 100 Intake/Output Intake/Output: Intake & Output 08/27/20 08/28/20 08/29/20 08/30/20 23:59 23:59 23:59 23:59 Intake Total 100 2645 1000 Output Total 600 800 Balance 100 2045 200 Meds/Results Medications: Active Medications Generic Name Dose Route Start Last Admin Trade Name Freq PRN Reason Stop Dose Admin Acetaminophen 500 mg 08/29/20 17:18 Acetaminophen 500 Mg Tablet PO Q6H PRN Mild Pain (1-3) or Fever Hydrocodone Bitart/Acetaminophen 1 tab 08/29/20 17:18 08/29/20 18:37 Hydrocodone/Acetaminophen (*Crx) 5-325 Mg Tablet PO 1 tab Q4H PRN Administration Pain Rated 4-6 Hydrocodone Bitart/Acetaminophen 1 tab 08/29/20 17:18 08/29/20 22:46 Hydrocodone/Acetaminophen (*Crx) 10-325 Mg Tablet PO 1 tab Q6H PRN Administration Pain Rated 7-10 Enoxaparin Sodium 40 mg 08/30/20 09:00 Enoxaparin 40 Mg/0.4 Ml Syringe SUB-Q DAILY [facility] Mineral Oil 15 ml 08/29/20 17:18 08/29/20 19:07 Mineral Oil 30 Ml Udc PO Not Given BID MATTHEW Morphine Sulfate 2 mg 08/29/20 17:18 08/29/20 20:21 Morphine Sulfate (*Crx) 2 Mg/Ml Inj IV PUSH 2 mg Q2H PRN Administration Pain Rated 4-6 Morphine Sulfate 4 mg 08/29/20 17:18 08/30/20 05:42 Morphine Sulfate (*Crx) 4 Mg/Ml Inj IV PUSH 4 mg Q2H PRN Administration Pain Rated 7-10 Ondansetron HCl 4 mg 08/29/20 17:18 08/30/20 00:48 Ondansetron Inj 4 Mg/2 Ml Vial IV PUSH 4 mg Q4H PRN Administration Nausea And Vomiting Psyllium Hydrophilic Mucilloid 1 packet 08/29/20 17:18 08/29/20 19:07 Psyllium Powder Packet PO Not Given BID [facility] Labs Labs: Laboratory Results - last 24 hr 08/28/20 08/29/20
[2020-08-30 07:47] LABS: Percent Iron Saturation < 3 % (20-50)
--- NOTE | 2020-08-30 08:02 | WPDGIPROGNO ---
Progress Note: A&P Assessment and Plan (1) Internal and external bleeding hemorrhoids: Code(s): K64.4 - Residual hemorrhoidal skin tags; K64.8 - Other hemorrhoids Status: Acute Assessment and Plan: Patient is status post hemorrhoidectomy. Surgical follow-up anticipated. Per their direction. High-fiber diet advised long-term. He may benefit from fiber supplement such as Metamucil. (2) Hepatitis C: Code(s): B19.20 - Unspecified viral hepatitis C without hepatic coma Status: Acute Assessment and Plan: Patient with hepatitis C. Suggest [facility] with [facility] for treatment of this after discharge this can be performed electively. Subjective Date/time seen: 08/30/20 08:02 Patient notices some rectal discomfort after hemorrhoidectomy yesterday. Review of Systems Review of Systems: All systems reviewed & are unremarkable except as noted in HPI and below Exam Narrative: Exam Narrative: On physical exam patient is alert comfortable at rest HEENT exam unremarkable. Abdomen bowel sounds are present soft nontender rectal exam deferred. Objective Data Vital Signs Vital Signs: Vital Signs - 24 hr 08/29/20 09:48 08/29/20 10:00 08/29/20 10:04 Temperature 96.3 F L 96.7 F L Pulse Rate 80 80 82 Respiratory Rate 16 16 Blood Pressure 147/73 H 139/77 Pulse Oximetry 100 97 08/29/20 10:26 08/29/20 10:49 08/29/20 11:39 Temperature 98.5 F 98.5 F Pulse Rate 88 84 99 Respiratory Rate 18 20 18 Blood Pressure 116/70 132/65 100/46 L Pulse Oximetry 99 98 100 08/29/20 11:49 08/29/20 11:59 08/29/20 12:00 Temperature 98 F 98.8 F Pulse Rate 94 98 91 Respiratory Rate 14 24 H 12 Blood Pressure 100/44 L 101/52 L 111/58 L Pulse Oximetry 100 98 100 08/29/20 14:00 08/29/20 14:11 08/29/20 15:56 Temperature 97.5 F L 97.7 F Pulse Rate 88 84 89 Respiratory Rate 16 12 Blood Pressure 150/74 H 125/74 Pulse Oximetry 100 100 08/29/20 16:00 08/29/20 16:10 08/29/20 16:25 Temperature 98.7 F Pulse Rate 90 82 82 Respiratory Rate 14 14 14 Blood Pressure 139/92 H 125/69 122/81 Pulse Oximetry 100 100 100 08/29/20 16:40 08/29/20 16:55 08/29/20 17:10 Temperature Pulse Rate 81 79 79 Respiratory Rate 16 16 16 Blood Pressure 138/89 136/90 139/89 Pulse Oximetry 100 97 100 08/29/20 17:30 08/29/20 18:00 08/29/20 20:00 Temperature 98.5 F Pulse Rate 94 91 88 Respiratory Rate 16 Blood Pressure 118/66 Pulse Oximetry 100 08/30/20 00:00 08/30/20 04:00 Temperature 97.8 F 98.6 F Pulse Rate 90 92 Respiratory Rate 16 16 Blood Pressure 134/66 139/68 Pulse Oximetry 100 100 Intake/Output Intake/Output: Intake & Output 08/27/20 08/28/20 08/29/20 08/30/20 23:59 23:59 23:59 23:59 Intake Total 100 2645 1000 Output Total 600 800 Balance 100 2045 200 Meds/Results Medications: Active Medications Generic Name Dose Route Start Last Admin Trade Name Freq PRN Reason Stop Dose Admin Acetaminophen 500 mg 08/29/20 17:18 Acetaminophen 500 Mg Tablet PO Q6H PRN Mild Pain (1-3) or Fever Hydrocodone Bitart/Acetaminophen 1 tab 08/29/20 17:18 08/29/20 18:37 Hydrocodone/Acetaminophen (*Crx) 5-325 Mg Tablet PO 1 tab Q4H PRN Administration Pain Rated 4-6 Hydrocodone Bitart/Acetaminophen 1 tab 08/29/20 17:18 08/29/20 22:46 Hydrocodone/Acetaminophen (*Crx) 10-325 Mg Tablet PO 1 tab Q6H PRN Administration Pain Rated 7-10 Enoxaparin Sodium 40 mg 08/30/20 09:00 Enoxaparin 40 Mg/0.4 Ml Syringe SUB-Q DAILY MATTHEW Morphine Sulfate 30 mg in 30 mls @ 1 mls/hr 08/30/20 07:23 Morphine Sulfate Marketing Manager Health Communications IV CONT .Q24H PRN VENEER MATCHER Management Protocol Ibuprofen 800 mg in 200 mls @ 400 mls/hr 08/30/20 08:00 Caldolor 800 Mg/200 Ml IVPB Q6H MATTHEW Mineral Oil 15 ml 08/29/20 17:18 08/29/20 19:07 Mineral Oil 30 Ml Udc PO Not Given BID MATTHEW Ondansetron HCl 4 mg 08/29/20 17:18 08/30
[2020-08-30] MEDS: MINERAL OIL 30 ML UDC 15 ML PO ×2 (08:10→16:52)
[2020-08-30] MEDS: PSYLLIUM POWDER PACKET 1 PACKET PO ×2 (08:10→16:53)
[2020-08-30] MEDS: IBUPROFEN IV 800 MG/200 ML 800 MG/200 ML BAG 400 MG IVPB ×3 (08:10→20:26)
[2020-08-30] MEDS: ENOXAPARIN 40 MG/0.4 ML SYRINGE SUB-Q (08:10)
[2020-08-30] MEDS: SODIUM CHLORIDE 0.9% IV 500 ML 30 ML (08:27)
[2020-08-30] MEDS: MORPHINE SULFATE PCA (*CRX) 30 MG/30 ML SYR IV CONT ×2 (08:31→16:51)
--- NOTE | 2020-08-30 11:09 | PM.IMPN ---
Progress Note: A&P Assessment and Plan (1) Hepatitis C: Code(s): B19.20 - Unspecified viral hepatitis C without hepatic coma Status: Acute Assessment and Plan: Monitor LFTs Follow-up with flaker operator as an outpatient (2) Acute GI bleeding: Code(s): K92.2 - Gastrointestinal hemorrhage, unspecified Status: Deleted Assessment and Plan: Blood transfusion p.r.n. Monitor vital signs and hemoglobin GI workup unremarkable Jaw surgery were consulted for hemorrhoid and patient had Excision internal and external hemorrhoids left lateral position August 29, 2020. (3) Profound anemia: Qualifiers: Anemia type: other cause Code(s): D64.9 - Anemia, unspecified Status: Deleted Assessment and Plan: Blood transfusion Monitor vital signs closely Monitor hemoglobin Hemoglobin dropped from 8.0-7.3 Monitor hemoglobin overnight Subjective Date/time seen: 08/30/20 11:09 Interval history: Patient is resting comfortably no active complaints at this time, GI workup was unremarkable, general surgery were consulted and patient had Excision internal and external hemorrhoids left lateral position August 29, 2020. Exam Const: General: cooperative and no acute distress HENMT: Head: normal to inspection Eyes: General: appearance normal, both eyes and all related structures Neck: Neck: normal visual inspection Chest: Chest palpation & inspection: normal inspection of the chest Resp: Effort & Inspection: normal respiratory effort Cardio: Jugular venous distension: no JVD Rate: regular rate GI: Inspection: normal to inspection and non-distended Objective Data Vital Signs Vital Signs: Vital Signs - 24 hr 08/29/20 11:39 08/29/20 11:49 08/29/20 11:59 Temperature 98 F Pulse Rate 99 94 98 Respiratory Rate 18 14 24 H Blood Pressure 100/46 L 100/44 L 101/52 L Pulse Oximetry 100 100 98 08/29/20 12:00 08/29/20 14:00 08/29/20 14:11 Temperature 98.8 F 97.5 F L Pulse Rate 91 88 84 Respiratory Rate 12 16 Blood Pressure 111/58 L 150/74 H Pulse Oximetry 100 100 08/29/20 15:56 08/29/20 16:00 08/29/20 16:10 Temperature 97.7 F 98.7 F Pulse Rate 89 90 82 Respiratory Rate 12 14 14 Blood Pressure 125/74 139/92 H 125/69 Pulse Oximetry 100 100 100 08/29/20 16:25 08/29/20 16:40 08/29/20 16:55 Temperature Pulse Rate 82 81 79 Respiratory Rate 14 16 16 Blood Pressure 122/81 138/89 136/90 Pulse Oximetry 100 100 97 08/29/20 17:10 08/29/20 17:30 08/29/20 18:00 Temperature Pulse Rate 79 94 91 Respiratory Rate 16 Blood Pressure 139/89 Pulse Oximetry 100 08/29/20 20:00 08/30/20 00:00 08/30/20 04:00 Temperature 98.5 F 97.8 F 98.6 F Pulse Rate 88 90 92 Respiratory Rate 16 16 16 Blood Pressure 118/66 134/66 139/68 Pulse Oximetry 100 100 100 08/30/20 08:00 08/30/20 08:31 08/30/20 09:30 Temperature 97.5 F L Pulse Rate 90 Respiratory Rate 16 16 16 Blood Pressure 130/74 Pulse Oximetry 100 100 100 08/30/20 10:28 Temperature Pulse Rate Respiratory Rate 16 Blood Pressure Pulse Oximetry 100 Intake/Output Intake/Output: Intake & Output 08/27/20 08/28/20 08/29/20 08/30/20 23:59 23:59 23:59 23:59 Intake Total 100 2645 1440 Output Total 600 800 Balance 100 2045 640 Meds/Results Medications: Active Medications Generic Name Dose Route Start Last Admin Trade Name Freq PRN Reason Stop Dose Admin Acetaminophen 500 mg 08/29/20 17:18 Acetaminophen 500 Mg Tablet PO Q6H PRN Mild Pain (1-3) or Fever Hydrocodone Bitart/Acetaminophen 1 tab 08/29/20 17:18 08/29/20 18:37 Hydrocodone/Acetaminophen (*Crx) 5-325 Mg Tablet PO 1 tab Q4H PRN Administration Pain Rated 4-6 Hydrocodone Bitart/Acetaminophen 1 tab 08/29/20 17:18 08/29/20 22:46 Hydrocodone/Acetaminophen (*Crx) 10-325 Mg Tablet PO 1 tab Q6H PRN Administration Pain Rated 7-10 Enoxaparin Sodium 40 mg 08/30/20 09:0
[2020-08-30] MEDS: FAMOTIDINE 20 MG TABLET PO ×2 (11:44→20:26)
--- NOTE | 2020-08-30 23:23 | PC.NURSE ---
This patient, Kahlil Faulkner, was transferred to [facility] on 08/30/20 at 2323. Personal belongings sent with patient. Report given to AMBER Kruse. Appropriate documentation sent with patient.
--- NOTE | 2020-08-30 23:30 | PC.NURSE ---
At 2320 received pt from IMU. Report received from Fidelia CLARK. Pt moved in bed with IV intact. Oriented to room.
[2020-08-31] VITALS (9 sets, daily range): BP systolic 143–169; BP diastolic 63–89; PULSE 74–90; RESP 16–20; TEMP 35.9–36.4; O2SAT 96–100
[2020-08-31] MEDS: IBUPROFEN IV 800 MG/200 ML 800 MG/200 ML BAG 400 MG IVPB ×4 (01:49→19:39)
[2020-08-31] MEDS: MORPHINE SULFATE PCA (*CRX) 30 MG/30 ML SYR IV CONT ×2 (04:32→13:04)
[2020-08-31 05:54] LABS: Hematocrit 25.3 % (42.0-52.0); Hemoglobin 7.5 g/dL (14.0-18.0); Mean Corpuscular HGB Conc 29.6 g/dl (32-36); Mean Corpuscular Hemoglobin 22.3 pg (26-34); Mean Corpuscular Volume 75.3 fl (80-100); Mean Platelet Volume 8.1 fl (7.4-10.4); Platelet Count Result 707 k/mm3 (150-375); Red Blood Count 3.36 M/mm3 (4.6-6.20); Red Cell Distribution Width 22.5 % (11.5-14.5); White Blood Count 19.3 K/mm3 (4.5-10.0)
[2020-08-31 06:13] LABS: Anion Gap 6 mmol/L (8-16); Blood Urea Nitrogen 9 mg/dL (9-20); Calcium 8.3 mg/dL (8.4-10.2); Carbon Dioxide 26 mmol/L (22-30); Chloride 107 mmol/L (98-107); Estimated CRCL calculation 75 ml/min; Estimated Glomerular Filt Rate > 60; Glucose 96 mg/dL (75-110); Potassium 4.3 mmol/L (3.4-5.0); Sodium 139 mmol/L (137-145)
[2020-08-31] MEDS: MINERAL OIL 30 ML UDC 15 ML PO ×2 (09:24→17:31)
[2020-08-31] MEDS: FAMOTIDINE 20 MG TABLET PO ×2 (09:25→19:40)
[2020-08-31] MEDS: PSYLLIUM POWDER PACKET 1 PACKET PO ×2 (09:25→17:31)
[2020-08-31] MEDS: ENOXAPARIN 40 MG/0.4 ML SYRINGE SUB-Q (09:25)
--- NOTE | 2020-08-31 09:47 | PM.PNGS ---
Progress Note: A&P Assessment and Plan (1) Internal and external bleeding hemorrhoids: Code(s): K64.4 - Residual hemorrhoidal skin tags; K64.8 - Other hemorrhoids Status: Acute Assessment and Plan: Status post hemorrhoidectomy. Very painful surgery. Continue MAINTENANCE TECHNICIAN but will decrease dose from 2 mg to 1 mg of morphine. Continue basal rate of 1 mg. Continue IV ibuprofen. Continue Metamucil and mineral oil with Sitz baths. Doing well and this recovery is not unexpected. (2) Acute blood loss anemia: Code(s): D62 - Acute posthemorrhagic anemia Status: Acute Assessment and Plan: Anemia stable. Subjective Subjective Date/Time Seen: 08/31/20 09:47 Post Op day: 2 Patient reports: feels better ( pain better controlled with MAINTENANCE TECHNICIAN and scheduled IV ibuprofen), pain is less ( see above), no bowel movement and afebrile Exam GI: Rectal Exam: tenderness and other ( wound healing well. No excessive bruising or hematoma.) Objective Data Vital Signs Vital Signs: Vital Signs - 24 hr 08/30/20 10:28 08/30/20 11:40 08/30/20 12:47 Temperature Pulse Rate Respiratory Rate 16 16 16 Blood Pressure Pulse Oximetry 100 100 100 08/30/20 14:15 08/30/20 16:00 08/30/20 16:04 Temperature 36.3 C L Pulse Rate 82 Respiratory Rate 16 18 16 Blood Pressure 133/69 Pulse Oximetry 100 100 100 08/30/20 16:51 08/30/20 18:01 08/30/20 20:00 Temperature Pulse Rate Respiratory Rate 16 16 Blood Pressure Pulse Oximetry 100 100 100 08/30/20 20:14 08/30/20 22:14 08/30/20 23:52 Temperature 36.6 C 36.2 C L Pulse Rate 84 85 Respiratory Rate 20 20 16 Blood Pressure 150/86 H 152/76 H Pulse Oximetry 100 100 99 08/31/20 04:32 08/31/20 05:12 08/31/20 05:44 Temperature 36.4 C L Pulse Rate 90 Respiratory Rate 20 20 16 Blood Pressure 169/63 H Pulse Oximetry 99 100 97 Intake/Output Intake/Output: Intake & Output 08/28/20 08/29/20 08/30/20 08/31/20 23:59 23:59 23:59 23:59 Intake Total 100 0800 2111 630 Output Total 600 2950 Balance 100 8485 -959 630 Meds/Results Medications: Active Medications Generic Name Dose Route Start Last Admin Trade Name Freq PRN Reason Stop Dose Admin Acetaminophen 500 mg 08/29/20 17:18 Acetaminophen 500 Mg Tablet PO Q6H PRN Mild Pain (1-3) or Fever Hydrocodone Bitart/Acetaminophen 1 tab 08/29/20 17:18 08/29/20 18:37 Hydrocodone/Acetaminophen (*Crx) 5-325 Mg Tablet PO 1 tab Q4H PRN Administration Pain Rated 4-6 Hydrocodone Bitart/Acetaminophen 1 tab 08/29/20 17:18 08/29/20 22:46 Hydrocodone/Acetaminophen (*Crx) 10-325 Mg Tablet PO 1 tab Q6H PRN Administration Pain Rated 7-10 Enoxaparin Sodium 40 mg 08/30/20 09:00 08/31/20 09:25 Enoxaparin 40 Mg/0.4 Ml Syringe SUB-Q 40 mg DAILY MATTHEW Administration Famotidine 20 mg 08/30/20 09:00 08/31/20 09:25 Famotidine 20 Mg Tablet PO 20 mg Q12HR MATTHEW Administration Ibuprofen 800 mg in 200 mls @ 400 mls/hr 08/30/20 08:00 08/31/20 09:24 Caldolor 800 Mg/200 Ml IVPB 400 mls/hr Q6H MATTHEW Administration Morphine Sulfate 30 mg in 30 mls @ 1 mls/hr 08/30/20 08:35 08/31/20 05:12 Morphine Sulfate Vp Care Management IV CONT 1 mg/hr .Q24H PRN 1 mls/hr MAINTENANCE TECHNICIAN Management Titration Protocol 1 MG/HR Mineral Oil 15 ml 08/29/20 17:18 08/31/20 09:24 Mineral Oil 30 Ml Udc PO 15 ml BID MATTHEW Administration Ondansetron HCl 4 mg 08/29/20 17:18 08/30/20 00:48 Ondansetron Inj 4 Mg/2 Ml Vial IV PUSH 4 mg Q4H PRN Administration Nausea And Vomiting Psyllium Hydrophilic Mucilloid 1 packet 08/29/20 17:18 08/31/20 09:25 Psyllium Powder Packet PO 1 packet BID MATTHEW Administration Labs Labs: Laboratory Results - last 24 hr 08/31/20 08/31/20 05:25 05:25 WBC 19.3 H RBC 3.36 L Hgb 7.5 L Hct 25.3 L MCV 75.3 L MCH 22.3 L MCHC 29.6 L RDW 22.5 H Plt Count 707 H MPV 8.1
--- NOTE | 2020-08-31 10:22 | PM.IMPN ---
Progress Note: A&P Assessment and Plan (1) Hepatitis C: Code(s): B19.20 - Unspecified viral hepatitis C without hepatic coma Status: Acute Assessment and Plan: Monitor LFTs Follow-up with wireless communications engineer as an outpatient (2) Acute GI bleeding: Code(s): K92.2 - Gastrointestinal hemorrhage, unspecified Status: Deleted Assessment and Plan: Blood transfusion p.r.n. Monitor vital signs and hemoglobin GI workup unremarkable general surgery were consulted for hemorrhoid and patient had Excision internal and external hemorrhoids left lateral position August 29, 2020. Monitor hemoglobin and white blood cells (3) Profound anemia: Qualifiers: Anemia type: other cause Code(s): D64.9 - Anemia, unspecified Status: Deleted Assessment and Plan: Blood transfusion Monitor vital signs closely Monitor hemoglobin Hemoglobin stable today Monitor hemoglobin overnight Subjective Date/time seen: 08/31/20 10:22 Interval history: Patient is resting comfortably no active complaints at this time, GI workup was unremarkable, general surgery were consulted and patient had Excision internal and external hemorrhoids left lateral position August 29, 2020. This morning patient seems comfortable, no active complaints. Exam Const: General: cooperative and no acute distress HENMT: Head: normal to inspection Eyes: General: appearance normal, both eyes and all related structures Neck: Neck: normal visual inspection Chest: Chest palpation & inspection: normal inspection of the chest Resp: Effort & Inspection: normal respiratory effort Cardio: Jugular venous distension: no JVD Rate: regular rate GI: Inspection: normal to inspection and non-distended Objective Data Vital Signs Vital Signs: Vital Signs - 24 hr 08/30/20 10:28 08/30/20 11:40 08/30/20 12:47 Temperature Pulse Rate Respiratory Rate 16 16 16 Blood Pressure Pulse Oximetry 100 100 100 08/30/20 14:15 08/30/20 16:00 08/30/20 16:04 Temperature 97.4 F L Pulse Rate 82 Respiratory Rate 16 18 16 Blood Pressure 133/69 Pulse Oximetry 100 100 100 08/30/20 16:51 08/30/20 18:01 08/30/20 20:00 Temperature Pulse Rate Respiratory Rate 16 16 Blood Pressure Pulse Oximetry 100 100 100 08/30/20 20:14 08/30/20 22:14 08/30/20 23:52 Temperature 98 F 97.2 F L Pulse Rate 84 85 Respiratory Rate 20 20 16 Blood Pressure 150/86 H 152/76 H Pulse Oximetry 100 100 99 08/31/20 04:32 08/31/20 05:12 08/31/20 05:44 Temperature 97.5 F L Pulse Rate 90 Respiratory Rate 20 20 16 Blood Pressure 169/63 H Pulse Oximetry 99 100 97 Intake/Output Intake/Output: Intake & Output 08/28/20 08/29/20 08/30/20 08/31/20 23:59 23:59 23:59 23:59 Intake Total 100 2645 2111 630 Output Total 600 2950 Balance 100 2045 -839 630 Meds/Results Medications: Active Medications Generic Name Dose Route Start Last Admin Trade Name Freq PRN Reason Stop Dose Admin Acetaminophen 500 mg 08/29/20 17:18 Acetaminophen 500 Mg Tablet PO Q6H PRN Mild Pain (1-3) or Fever Hydrocodone Bitart/Acetaminophen 1 tab 08/29/20 17:18 08/29/20 18:37 Hydrocodone/Acetaminophen (*Crx) 5-325 Mg Tablet PO 1 tab Q4H PRN Administration Pain Rated 4-6 Hydrocodone Bitart/Acetaminophen 1 tab 08/29/20 17:18 08/29/20 22:46 Hydrocodone/Acetaminophen (*Crx) 10-325 Mg Tablet PO 1 tab Q6H PRN Administration Pain Rated 7-10 Enoxaparin Sodium 40 mg 08/30/20 09:00 08/31/20 09:25 Enoxaparin 40 Mg/0.4 Ml Syringe SUB-Q 40 mg DAILY MATTHEW Administration Famotidine 20 mg 08/30/20 09:00 08/31/20 09:25 Famotidine 20 Mg Tablet PO 20 mg Q12HR MATTHEW Administration Ibuprofen 800 mg in 200 mls @ 400 mls/hr 08/30/20 08:00 08/31/20 09:24 Caldolor 800 Mg/200 Ml IVPB 400 mls/hr Q6H MATTHEW Administration Morphine Sulfate 30 mg in 30 mls @ 1 mls/hr 08/30/20 08:35
[2020-08-31] MEDS: SODIUM CHLORIDE 0.9% IV 500 ML 30 ML (17:32)
[2020-09-01] VITALS (14 sets, daily range): BP systolic 158–188; BP diastolic 74–75; PULSE 73–88; RESP 16–21; TEMP 36.1–36.8; O2SAT 99–100
[2020-09-01] MEDS: MORPHINE SULFATE PCA (*CRX) 30 MG/30 ML SYR IV CONT ×2 (01:14→10:30)
[2020-09-01] MEDS: IBUPROFEN IV 800 MG/200 ML 800 MG/200 ML BAG 400 MG IVPB ×4 (01:38→21:19)
[2020-09-01 05:47] LABS: Hematocrit 26.3 % (42.0-52.0); Hemoglobin 7.7 g/dL (14.0-18.0); Mean Corpuscular HGB Conc 29.3 g/dl (32-36); Mean Corpuscular Hemoglobin 21.9 pg (26-34); Mean Corpuscular Volume 74.9 fl (80-100); Mean Platelet Volume 8.1 fl (7.4-10.4); Platelet Count Result 676 k/mm3 (150-375); Red Blood Count 3.51 M/mm3 (4.6-6.20); Red Cell Distribution Width 22.5 % (11.5-14.5); White Blood Count 15.8 K/mm3 (4.5-10.0)
[2020-09-01 06:03] LABS: Anion Gap 7 mmol/L (8-16); Blood Urea Nitrogen 9 mg/dL (9-20); Calcium 8.4 mg/dL (8.4-10.2); Carbon Dioxide 27 mmol/L (22-30); Chloride 105 mmol/L (98-107); Estimated CRCL calculation 81 ml/min; Estimated Glomerular Filt Rate > 60; Glucose 117 mg/dL (75-110); Potassium 4.2 mmol/L (3.4-5.0); Sodium 139 mmol/L (137-145)
[2020-09-01] MEDS: ENOXAPARIN 40 MG/0.4 ML SYRINGE SUB-Q (08:04)
[2020-09-01] MEDS: MINERAL OIL 30 ML UDC 15 ML PO ×2 (08:05→18:13)
[2020-09-01] MEDS: PSYLLIUM POWDER PACKET 1 PACKET PO ×2 (08:05→18:13)
[2020-09-01] MEDS: FAMOTIDINE 20 MG TABLET PO ×2 (08:05→21:20)
[2020-09-01] MEDS: SODIUM CHLORIDE 0.9% IV 500 ML 30 ML (10:19)
--- NOTE | 2020-09-01 10:43 | PM.IMPN ---
Progress Note: A&P Assessment and Plan (1) Hepatitis C: Code(s): B19.20 - Unspecified viral hepatitis C without hepatic coma Status: Acute Assessment and Plan: Monitor LFTs Follow-up with film color tester as an outpatient (2) Acute GI bleeding: Code(s): K92.2 - Gastrointestinal hemorrhage, unspecified Status: Deleted Assessment and Plan: Blood transfusion p.r.n. Monitor vital signs and hemoglobin GI workup unremarkable general surgery were consulted for hemorrhoid and patient had Excision internal and external hemorrhoids August 29, 2020. 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 Exam Const: General: cooperative and no acute distress HENMT: Head: normal to inspection Eyes: General: appearance normal, both eyes and all related structures Neck: Neck: normal visual inspection Chest: Chest palpation & inspection: normal inspection of the chest Resp: Effort & Inspection: normal respiratory effort Cardio: Jugular venous distension: no JVD Rate: regular rate GI: Inspection: normal to inspection and non-distended Objective Data Vital Signs Vital Signs: Vital Signs - 24 hr 08/31/20 13:04 08/31/20 14:00 08/31/20 16:28 Temperature 96.6 F L Pulse Rate 74 Respiratory Rate 17 16 16 Blood Pressure 164/74 H Pulse Oximetry 100 100 100 08/31/20 20:00 08/31/20 22:49 09/01/20 00:00 Temperature 97.2 F L Pulse Rate 90 Respiratory Rate 20 16 16 Blood Pressure 143/89 H Pulse Oximetry 100 100 09/01/20 01:14 09/01/20 01:30 09/01/20 03:18 Temperature Pulse Rate Respiratory Rate 16 Blood Pressure Pulse Oximetry 100 100 99 09/01/20 03:37 09/01/20 08:15 09/01/20 09:00 Temperature 98.1 F Pulse Rate 73 Respiratory Rate 20 17 16 Blood Pressure Pulse Oximetry 99 100 100 09/01/20 10:23 09/01/20 10:30 09/01/20 10:34 Temperature Pulse Rate Respiratory Rate 16 16 Blood Pressure Pulse Oximetry 100 100 100 Intake/Output Intake/Output: Intake & Output 08/29/20 08/30/20 08/31/20 09/01/20 23:59 23:59 23:59 23:59 Intake Total 2645 2111 1760 1960 Output Total 600 2950 1800 800 Balance 2045 -839 -40 1160 Meds/Results Medications: Active Medications Generic Name Dose Route Start Last Admin Trade Name Freq PRN Reason Stop Dose Admin Acetaminophen 500 mg 08/29/20 17:18 Acetaminophen 500 Mg Tablet PO Q6H PRN Mild Pain (1-3) or Fever Hydrocodone Bitart/Acetaminophen 1 tab 08/29/20 17:18 08/29/20 18:37 Hydrocodone/Acetaminophen (*Crx) 5-325 Mg Tablet PO 1 tab Q4H PRN Administration Pain Rated 4-6 Hydrocodone Bitart/Acetaminophen 1 tab 08/29/20 17:18 08/29/20 22:46 Hydrocodone/Acetaminophen (*Crx) 10-325 Mg Tablet PO 1 tab Q6H PRN Administration Pain Rated 7-10 Enoxaparin Sodium 40 mg 08/30/20 09:00 09/01/20 08:04 Enoxaparin 40 Mg/0.4 Ml Syringe SUB-Q 40 mg DAILY MATTHEW Administration Famotidine 20 mg 08/30/20 09:00 09/01/20 08:05 Famotidine 20 Mg Tablet PO 20 mg Q12HR MATTHEW Administration Ibuprofen 800 mg in 200 mls @ 400 mls/hr 08/30/20 08:00 09/01/20 08:35 Caldolor 800 Mg/200 Ml IVPB Infused Q6H MATTHEW Infusion Morphine Sulfate 30 mg in 30 mls @ 0 mls/hr 09/01/20 10:25 09/01/20 10:30 Morphine Sulfate Sap Mobility Architect IV CONT 0 mls/hr PRN PRN Administration IRRIGATING PUMP OPERATOR Management Mineral Oil 15 ml 08/29/20 17:18 09/01/20 08:05 Mineral Oil 30 Ml Udc PO 15 ml BID MATTHEW Administration
--- NOTE | 2020-09-01 14:14 | PM.PNGS ---
Progress Note: A&P Assessment and Plan (1) Internal and external bleeding hemorrhoids: Code(s): K64.4 - Residual hemorrhoidal skin tags; K64.8 - Other hemorrhoids Status: Chronic Assessment and Plan: Continue MANAGER RELOCATION for pain control. Will DC basal rate today. Hope to DC MANAGER RELOCATION tomorrow and start oral dose of ibuprofen 600 mg Q 6 hours. Possibly home Wednesday or Wednesday if pain control improves. Subjective Subjective Date/Time Seen: 09/01/20 14:14 Post Op day: 3 Patient reports: no new complaints, pain is less, bowel movement ( Very painful) and afebrile Exam GI: Rectal Exam: tenderness Other: some swelling but no severe ecchymosis or hematoma. Healing appropriately. Objective Data Vital Signs Vital Signs: Vital Signs - 24 hr 08/31/20 16:28 08/31/20 20:00 08/31/20 22:49 Temperature 36.2 C L Pulse Rate 90 Respiratory Rate 16 20 16 Blood Pressure 143/89 H Pulse Oximetry 100 100 09/01/20 00:00 09/01/20 01:14 09/01/20 01:30 Temperature Pulse Rate Respiratory Rate 16 16 Blood Pressure Pulse Oximetry 100 100 100 09/01/20 03:18 09/01/20 03:37 09/01/20 08:15 Temperature Pulse Rate Respiratory Rate 20 17 Blood Pressure Pulse Oximetry 99 99 100 09/01/20 09:00 09/01/20 10:23 09/01/20 10:30 Temperature 36.7 C Pulse Rate 73 Respiratory Rate 16 16 16 Blood Pressure Pulse Oximetry 100 100 100 09/01/20 10:34 Temperature Pulse Rate Respiratory Rate Blood Pressure Pulse Oximetry 100 Intake/Output Intake/Output: Intake & Output 08/29/20 08/30/20 08/31/20 09/01/20 23:59 23:59 23:59 23:59 Intake Total 2645 2111 1760 1960 Output Total 600 2950 1800 800 Balance 2045 -839 -40 1160 Meds/Results Medications: Active Medications Generic Name Dose Route Start Last Admin Trade Name Freq PRN Reason Stop Dose Admin Acetaminophen 500 mg 08/29/20 17:18 Acetaminophen 500 Mg Tablet PO Q6H PRN Mild Pain (1-3) or Fever Hydrocodone Bitart/Acetaminophen 1 tab 08/29/20 17:18 08/29/20 18:37 Hydrocodone/Acetaminophen (*Crx) 5-325 Mg Tablet PO 1 tab Q4H PRN Administration Pain Rated 4-6 Hydrocodone Bitart/Acetaminophen 1 tab 08/29/20 17:18 08/29/20 22:46 Hydrocodone/Acetaminophen (*Crx) 10-325 Mg Tablet PO 1 tab Q6H PRN Administration Pain Rated 7-10 Enoxaparin Sodium 40 mg 08/30/20 09:00 09/01/20 08:04 Enoxaparin 40 Mg/0.4 Ml Syringe SUB-Q 40 mg DAILY MATTHEW Administration Famotidine 20 mg 08/30/20 09:00 09/01/20 08:05 Famotidine 20 Mg Tablet PO 20 mg Q12HR MATTHEW Administration Ibuprofen 800 mg in 200 mls @ 400 mls/hr 08/30/20 08:00 09/01/20 08:35 Caldolor 800 Mg/200 Ml IVPB Infused Q6H MATTHEW Infusion Morphine Sulfate 30 mg in 30 mls @ 0 mls/hr 09/01/20 10:25 09/01/20 10:30 Morphine Sulfate Micro Photographer IV CONT 0 mls/hr PRN PRN Administration MANAGER RELOCATION Management Mineral Oil 15 ml 08/29/20 17:18 09/01/20 08:05 Mineral Oil 30 Ml Udc PO 15 ml BID MATTHEW Administration Ondansetron HCl 4 mg 08/29/20 17:18 08/30/20 00:48 Ondansetron Inj 4 Mg/2 Ml Vial IV PUSH 4 mg Q4H PRN Administration Nausea And Vomiting Psyllium Hydrophilic Mucilloid 1 packet 08/29/20 17:18 09/01/20 08:05 Psyllium Powder Packet PO 1 packet BID MATTHEW Administration Labs Labs: Laboratory Results - last 24 hr 09/01/20 09/01/20 05:31 05:31 WBC 15.8 H RBC 3.51 L Hgb 7.7 L Hct 26.3 L MCV 74.9 L MCH 21.9 L MCHC 29.3 L RDW 22.5 H Plt Count 676 H MPV 8.1 Sodium 139 Potassium 4.2 Chloride 105 Carbon Dioxide 27 Anion Gap 7 L BUN 9 Creatinine 1.20 Estim Creat Clear Calc 81 Estimated GFR > 60 Glucose 117 H Calcium 8.4 Quality VTE Prophylaxis VTE prophylaxis: mechanical ordered
[2020-09-01] MEDS: amLODIPine BESYLATE 5 MG TABLET 10 MG PO (19:09)
[2020-09-02] MEDS: IBUPROFEN IV 800 MG/200 ML 800 MG/200 ML BAG 400 MG IVPB (02:06)
[2020-09-02 02:15] VITALS: RESP 16; O2SAT 98
[2020-09-02 02:35] VITALS: RESP 18; O2SAT 100
[2020-09-02] MEDS: MORPHINE SULFATE PCA (*CRX) 30 MG/30 ML SYR IV CONT (02:35)
[2020-09-02 05:34] LABS: Hematocrit 26.1 % (42.0-52.0); Hemoglobin 7.6 g/dL (14.0-18.0); Mean Corpuscular HGB Conc 29.1 g/dl (32-36); Mean Corpuscular Hemoglobin 21.5 pg (26-34); Mean Corpuscular Volume 73.9 fl (80-100); Platelet Count Result 718 k/mm3 (150-375); Red Blood Count 3.53 M/mm3 (4.6-6.20); Red Cell Distribution Width 22.4 % (11.5-14.5); White Blood Count 12.8 K/mm3 (4.5-10.0)
[2020-09-02 05:43] LABS: Anion Gap 7 mmol/L (8-16); Blood Urea Nitrogen 9 mg/dL (9-20); Carbon Dioxide 28 mmol/L (22-30); Chloride 104 mmol/L (98-107); Estimated CRCL calculation 75 ml/min; Estimated Glomerular Filt Rate > 60; Glucose 105 mg/dL (75-110); Potassium 4.4 mmol/L (3.4-5.0); Sodium 139 mmol/L (137-145)
[2020-09-02 06:00] VITALS: BP 129/77; PULSE 84; RESP 20; TEMP 36.3; O2SAT 99
--- NOTE | 2020-09-02 07:35 | PM.PNGS ---
Progress Note: A&P Assessment and Plan (1) Internal and external bleeding hemorrhoids: Code(s): K64.4 - Residual hemorrhoidal skin tags; K64.8 - Other hemorrhoids Status: Chronic Assessment and Plan: Rectal incisions continue to heal well but patient having very painful bowel movements. Will increase Metamucil to 3 times a day. Will DC PIPE STEM ALIGNER and IV ibuprofen. Will give oral ibuprofen 600 mg q.6 hours scheduled. Will have [place] available p.o. as well. Will still have morphine IV as backup for severe pain. Continue Sitz baths as well. Hopefully home tomorrow if not requiring IV narcotics. (2) Acute blood loss anemia: Code(s): D62 - Acute posthemorrhagic anemia Status: Acute Assessment and Plan: H&H low but stable. No evidence of further bleeding. Subjective Subjective Date/Time Seen: 09/02/20 07:35 Post Op day: 4 Patient reports: feels better, pain is less, tolerating a regular diet, bowel movement ( in stools still hard and thus very painful with bowel movement.) and afebrile Exam GI: Rectal Exam: tenderness and other ( Rectal incisions continue to heal well. Normal postop appearance.) Objective Data Vital Signs Vital Signs: Vital Signs - 24 hr 09/01/20 08:15 09/01/20 09:00 09/01/20 10:23 Temperature 36.7 C Pulse Rate 73 Respiratory Rate 17 16 16 Blood Pressure Pulse Oximetry 100 100 100 09/01/20 10:30 09/01/20 10:34 09/01/20 16:00 Temperature 36.8 C Pulse Rate 88 Respiratory Rate 16 16 Blood Pressure 188/74 H Pulse Oximetry 100 100 100 09/01/20 18:15 09/01/20 22:00 09/01/20 22:15 Temperature 36.1 C L Pulse Rate 80 Respiratory Rate 19 21 H 21 H Blood Pressure 158/75 H Pulse Oximetry 99 100 100 09/02/20 02:15 09/02/20 02:35 Temperature Pulse Rate Respiratory Rate 16 18 Blood Pressure Pulse Oximetry 98 100 Intake/Output Intake/Output: Intake & Output 08/30/20 08/31/20 09/01/20 09/02/20 23:59 23:59 23:59 23:59 Intake Total 2111 1760 3680 230 Output Total 2950 1800 1650 Balance -839 -40 2030 230 Meds/Results Medications: Active Medications Generic Name Dose Route Start Last Admin Trade Name Freq PRN Reason Stop Dose Admin Acetaminophen 500 mg 08/29/20 17:18 Acetaminophen 500 Mg Tablet PO Q6H PRN Mild Pain (1-3) or Fever Hydrocodone Bitart/Acetaminophen 1 tab 08/29/20 17:18 08/29/20 18:37 Hydrocodone/Acetaminophen (*Crx) 5-325 Mg Tablet PO 1 tab Q4H PRN Administration Pain Rated 4-6 Hydrocodone Bitart/Acetaminophen 1 tab 08/29/20 17:18 08/29/20 22:46 Hydrocodone/Acetaminophen (*Crx) 10-325 Mg Tablet PO 1 tab Q6H PRN Administration Pain Rated 7-10 Amlodipine Besylate 10 mg 09/01/20 18:47 09/01/20 19:09 Amlodipine Besylate 5 Mg Tablet PO 10 mg QAM MATTHEW Administration Enoxaparin Sodium 40 mg 08/30/20 09:00 09/01/20 08:04 Enoxaparin 40 Mg/0.4 Ml Syringe SUB-Q 40 mg DAILY MATTHEW Administration Famotidine 20 mg 08/30/20 09:00 09/01/20 21:20 Famotidine 20 Mg Tablet PO 20 mg Q12HR MATTHEW Administration Ibuprofen 800 mg in 200 mls @ 400 mls/hr 08/30/20 08:00 09/02/20 02:36 Caldolor 800 Mg/200 Ml IVPB Infused Q6H MATTHEW Infusion Ibuprofen 800 mg 09/02/20 07:25 Ibuprofen 400 Mg Tablet PO Q6H MATTHEW Mineral Oil 15 ml 08/29/20 17:18 09/01/20 18:13 Mineral Oil 30 Ml Udc PO 15 ml BID MATTHEW Administration Morphine Sulfate 2 mg 09/02/20 07:24 Morphine Sulfate (*Crx) 2 Mg/Ml Inj IV PUSH Q2H PRN Pain Rated 4-6 Morphine Sulfate 4 mg 09/02/20 07:24 Morphine Sulfate (*Crx) 4 Mg/Ml Inj IV PUSH Q2H PRN Pain Rated 7-10 Ondansetron HCl 4 mg 08/29/20 17:18 08/30/20 00:48 Ondansetron Inj 4 Mg/2 Ml Vial IV PUSH 4 mg Q4H PRN Administration Nausea And Vomiting Psyllium Hydrophilic Mucilloid 1 packet 09/02/20 09:00 Psyllium Powder Packet PO TID [facility] Labs Labs: L
[2020-09-02] MEDS: MINERAL OIL 30 ML UDC 15 ML PO ×2 (08:45→17:37)
[2020-09-02] MEDS: FAMOTIDINE 20 MG TABLET PO ×2 (08:45→20:26)
[2020-09-02] MEDS: amLODIPine BESYLATE 5 MG TABLET 10 MG PO (08:45)
[2020-09-02] MEDS: PSYLLIUM POWDER PACKET 1 PACKET PO ×3 (08:45→17:37)
[2020-09-02] MEDS: ENOXAPARIN 40 MG/0.4 ML SYRINGE SUB-Q (08:46)
[2020-09-02] MEDS: IBUPROFEN 400 MG TABLET 800 MG PO ×3 (08:52→17:37)
--- NOTE | 2020-09-02 11:23 | PM.IMPN ---
Progress Note: A&P Assessment and Plan (1) Hepatitis C: Code(s): B19.20 - Unspecified viral hepatitis C without hepatic coma Status: Acute Assessment and Plan: Monitor LFTs Follow-up with head filter press tender as an outpatient (2) Acute GI bleeding: Code(s): K92.2 - Gastrointestinal hemorrhage, unspecified Status: Deleted Assessment and Plan: Blood transfusion p.r.n. Monitor vital signs and hemoglobin GI workup unremarkable general surgery were consulted for hemorrhoid and patient had Excision internal and external hemorrhoids August 29, 2020. Monitor hemoglobin and white blood cells pain control consider discharge patient home in 1-2 days once his pain under reasonable control, pain controlled by Dr. bradley (3) Profound anemia: Qualifiers: Anemia type: other cause Code(s): D64.9 - Anemia, unspecified Status: Deleted Assessment and Plan: Blood transfusion p.r.n. 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 Exam Const: General: cooperative and no acute distress HENMT: Head: normal to inspection Eyes: General: appearance normal, both eyes and all related structures Neck: Neck: normal visual inspection Chest: Chest palpation & inspection: normal inspection of the chest Resp: Effort & Inspection: normal respiratory effort Cardio: Jugular venous distension: no JVD Rate: regular rate GI: Inspection: normal to inspection and non-distended Objective Data Vital Signs Vital Signs: Vital Signs - 24 hr 09/01/20 16:00 09/01/20 18:15 09/01/20 22:00 Temperature 98.2 F 97.0 F L Pulse Rate 88 80 Respiratory Rate 16 19 21 H Blood Pressure 188/74 H 158/75 H Pulse Oximetry 100 99 100 09/01/20 22:15 09/02/20 02:15 09/02/20 02:35 Temperature Pulse Rate Respiratory Rate 21 H 16 18 Blood Pressure Pulse Oximetry 100 98 100 09/02/20 06:00 Temperature 97.4 F L Pulse Rate 84 Respiratory Rate 20 Blood Pressure 129/77 Pulse Oximetry 99 Intake/Output Intake/Output: Intake & Output 08/30/20 08/31/20 09/01/20 09/02/20 23:59 23:59 23:59 23:59 Intake Total 2111 1760 3680 1193 Output Total 2950 1800 1650 1300 [facility] -839 -40 2030 -107 Meds/Results Medications: Active Medications Generic Name Dose Route Start Last Admin Trade Name Freq PRN Reason Stop Dose Admin Acetaminophen 500 mg 08/29/20 17:18 Acetaminophen 500 Mg Tablet PO Q6H PRN Mild Pain (1-3) or Fever Hydrocodone Bitart/Acetaminophen 1 tab 08/29/20 17:18 08/29/20 18:37 Hydrocodone/Acetaminophen (*Crx) 5-325 Mg Tablet PO 1 tab Q4H PRN Administration Pain Rated 4-6 Hydrocodone Bitart/Acetaminophen 1 tab 08/29/20 17:18 08/29/20 22:46 Hydrocodone/Acetaminophen (*Crx) 10-325 Mg Tablet PO 1 tab Q6H PRN Administration Pain Rated 7-10 Amlodipine Besylate 10 mg 09/01/20 18:47 09/02/20 08:45 Amlodipine Besylate 5 Mg Tablet PO 10 mg QAM MATTHEW Administration Enoxaparin Sodium 40 mg 08/30/20 09:00 09/02/20 08:46 Enoxaparin 40 Mg/0.4 Ml Syringe SUB-Q 40 mg DAILY MATTHEW Administration Famotidine 20 mg 08/30/20 09:00 09/02/20 08:45 Famotidine 20 Mg Tablet PO 20 mg Q12HR MATTHEW Administration Ibuprofen 800 mg 09/02/20 08:30 09/02/20 08:52 Ibuprofen 400 Mg Tablet PO 800 mg Q6HR MATTHEW Administration Mineral Oil 15 ml 08/29/20 17:18 09/02/20 08:45 Mineral Oil 30 Ml Udc PO 15 ml BID MATTHEW Administration Morphine Sulfate 2 mg 09/02/20 07:24 Morphine Sulfate (*Crx) 2 Mg/Ml Inj IV PUSH Q2H PRN Pain Rated 4-6 Morphine Sulfate 4 mg 09/02/20 07:24 Morphine Sulfate (*Crx) 4 Mg/Ml Inj IV PUSH Q2H PRN Pain Rated 7-10 Ondansetron HCl 4 mg 08/29/20 17:18 08/30/20 00:48
[2020-09-02 14:00] VITALS: BP 131/65; PULSE 102; RESP 16; TEMP 35.8; O2SAT 100
[2020-09-02] MEDS: HYDROcodone/acetaminophen (*CRX) 10-325 MG TABLET 1 TAB PO (17:42)
[2020-09-02 22:00] VITALS: BP 166/75; PULSE 87; RESP 21; TEMP 36.6; O2SAT 100
[2020-09-02] MEDS: HYDROcodone/acetaminophen (*CRX) 5-325 MG TABLET 1 TAB PO (22:25)
[2020-09-03] MEDS: IBUPROFEN 400 MG TABLET 800 MG PO ×3 (00:09→12:57)
[2020-09-03 05:55] LABS: Hematocrit 25.7 % (42.0-52.0); Hemoglobin 7.5 g/dL (14.0-18.0); Mean Corpuscular HGB Conc 29.2 g/dl (32-36); Mean Corpuscular Hemoglobin 21.6 pg (26-34); Mean Corpuscular Volume 73.9 fl (80-100); Mean Platelet Volume 8.1 fl (7.4-10.4); Platelet Count Result 740 k/mm3 (150-375); Red Blood Count 3.48 M/mm3 (4.6-6.20); Red Cell Distribution Width 22.4 % (11.5-14.5); White Blood Count 7.9 K/mm3 (4.5-10.0)
[2020-09-03 06:00] VITALS: BP 146/79; PULSE 73; RESP 21; TEMP 36.1; O2SAT 100
[2020-09-03 06:02] LABS: Anion Gap 6 mmol/L (8-16); Blood Urea Nitrogen 9 mg/dL (9-20); Calcium 8.6 mg/dL (8.4-10.2); Carbon Dioxide 25 mmol/L (22-30); Chloride 106 mmol/L (98-107); Estimated CRCL calculation 75 ml/min; Estimated Glomerular Filt Rate > 60; Glucose 118 mg/dL (75-110); Potassium 4.6 mmol/L (3.4-5.0); Sodium 137 mmol/L (137-145)
[2020-09-03] MEDS: MINERAL OIL 30 ML UDC 15 ML PO (08:15)
[2020-09-03] MEDS: PSYLLIUM POWDER PACKET 1 PACKET PO (08:15)
[2020-09-03] MEDS: ENOXAPARIN 40 MG/0.4 ML SYRINGE SUB-Q (08:16)
[2020-09-03] MEDS: FAMOTIDINE 20 MG TABLET PO (08:17)
[2020-09-03] MEDS: amLODIPine BESYLATE 5 MG TABLET 10 MG PO (08:17)
--- NOTE | 2020-09-03 11:22 | PM.DS ---
DS: Admitting Diagnosis Admitting Diagnosis Admitting Diagnosis: GI bleeding internal external hemorrhoid DS: Discharge Diagnosis Discharge Diagnosis (1) Hepatitis C: Code(s): B19.20 - Unspecified viral hepatitis C without hepatic coma Status: Acute Assessment and Plan: Monitor LFTs Follow-up with scrub woman as an outpatient (2) Acute GI bleeding: Code(s): K92.2 - Gastrointestinal hemorrhage, unspecified Status: Deleted Assessment and Plan: Blood transfusion p.r.n. Monitor vital signs and hemoglobin GI workup unremarkable general surgery were consulted for hemorrhoid and patient had Excision internal and external hemorrhoids August 29, 2020. Monitor hemoglobin and white blood cells pain control consider discharge patient home in 1-2 days once his pain under reasonable control, pain controlled by Dr. bradley (3) Profound anemia: Qualifiers: Anemia type: other cause Code(s): D64.9 - Anemia, unspecified Status: Deleted Assessment and Plan: Blood transfusion p.r.n. Monitor vital signs closely Monitor hemoglobin Hemoglobin stable today Monitor hemoglobin DS: Summary Hospital Course Reason for hospitalization: GI bleeding profound anemia internal external have Hospital Course: 44 years old male was admitted complained of having generalized weakness and rectal bleeding. Patient hemoglobin was stabilized was very low. Surgery was consulted. Were advised to continue Sitz bath and replace hemoglobin as needed. Today patient is feeling better patient hemoglobin stable so patient was discharged home stable condition. No complications stay in the hospital. Status at Discharge Cognitive/behavioral status at discharge: Stable Functional status at discharge: independent ambulation Overall status at discharge: patient is back to baseline Time Spent with Patient Time attestation: Total time spent providing and/or coordinating discharge services: Time spent: Less than 30 minutes Exam Narrative: Exam Narrative: Laying in [facility] Const: General: cooperative, comfortable, no acute distress, well developed, alert, awake and other (Well-appearing) Nutritional Appearance: average body habitus and well nourished Orientation/consciousness: patient oriented x3 HENMT: Head: normal to inspection, normocephalic and atraumatic Ears: hearing grossly normal bilaterally General nose exam: Normal external nose present Face and sinus: normal facial exam Mouth: Yes Normal oral and palatal mucosa present Eyes: General: appearance normal, both eyes and all related structures Sclera: sclerae normal Pupils: Equal, round and reactive pupils present EOM: EOMs intact bilaterally Neck: Neck: normal visual inspection, full ROM, no lymphadenopathy and no JVD Thyroid: thyroid normal Lymphatic: no lymphadenopathy noted Chest: Chest palpation & inspection: normal inspection of the chest Resp: Effort & Inspection: normal respiratory effort and able to speak in complete sentences Auscultation: clear to auscultation bilaterally, no crackles, no rales, no rhonchi and no wheezes Cardio: Jugular venous distension: no JVD Rate: regular rate Rhythm: regular rhythm Heart sounds: S1 normal heart sound present and S2 normal heart sound present GI: Inspection: normal to inspection and non-distended : General: Yes deferred Skin: Rashes: no rashes Wounds: no wounds Neuro: General: patient oriented x3 and CN's II-XI intact bilaterally Cranial nerves: Yes CN's II-XII intact bilaterally and Yes Equal, round and reactive pupils present Cognition (Neuro): normal cognition Speech: normal speech Gait exam (Neuro): Normal gait present Motor exam (neuro): 5/5 motor strength present throughout Extrem: General: normal to inspection, full ROM, no joint enlargement and no pedal edema Psych: Appearance: grossly normal Mental Status: mental status grossly normal Speech and movement: Norm
== END 2020-09-03 14:10 | disposition home or self-care (01) | DRG 226 ==
LOC: ANHED 18:46 → ANHIMU 20:10 → ANH2MED 08-31 07:22 → ANHIMU 09-05 08:17
PROVIDERS: Emergency Medicine; Family Medicine; Internal Medicine Gastroenterology; Admitting Provider Surgery; Emergency Provider Emergency Medicine; Visit Provider Internal Medicine
PROC: 0DJ08ZZ Inspection of Upper Intestinal Tract, Via Natural or Artificial Opening Endoscopic (ICD-10-PCS; CPT 43235; principal; 2020-08-29 11:00)
PROC: 06BY3ZC Excision of Hemorrhoidal Plexus, Percutaneous Approach (ICD-10-PCS; principal; 2020-08-29 14:00)
DX: K64.8 Other hemorrhoids (principal); K92.2 Gastrointestinal hemorrhage, unspecified; B19.20 Unspecified viral hepatitis C without hepatic coma; D62 Acute posthemorrhagic anemia; K64.4 Residual hemorrhoidal skin tags
CPT/HCPCS: 36415; 36430; 80048; 80053; 82728; 83540; 83550; 83735; 84100; 85014; 85018; 85025; 85027; 85610; 85730; 86850; 86900; 86901; 86920; 87081; 88304; 96374; 96375; 99285; A9270; C9113; C9290; J0131; J0330; J1100; J1650; J1741; J2250; J2270; J2405; J2704; J3010; J7030; J7040; J7050; J7120; P9016

== ENCOUNTER 2021-12-15 21:54 | Emergency (ER) | payer OTHER, SELFPAY ==
[2021-12-15 22:09] VITALS: BP 151/95; PULSE 81; RESP 14; TEMP 36.7; O2SAT 98
--- NOTE | 2021-12-15 23:46 | PC.NURSE ---
Pt called for a room for the first time. No answer at this time.
--- NOTE | 2021-12-16 00:27 | PC.NURSE ---
attempted to call pt again. Pt not to be found in the waiting area anymore.
== END 2021-12-15 23:46 | disposition left against medical advice (07) ==
DX: I10 Essential (primary) hypertension (principal)
CPT/HCPCS: 99199

== ENCOUNTER 2022-03-11 08:44 | Outpatient (CLI) | payer OTHER, SELFPAY ==
[2022-03-11 18:40] LABS: Alanine Aminotransferase 29 U/L (6-50); Albumin Level 4.2 g/dL (3.5-5.1); Alkaline Phosphatase 64 U/L (38-126); Anion Gap 6 mmol/L (8-16); Aspartate Amino Transferase 45 U/L (17-59); Bilirubin,Total 0.6 mg/dL (0.2-1.3); Blood Urea Nitrogen 19 mg/dL (9-20); Calcium 8.8 mg/dL (8.4-10.2); Carbon Dioxide 29 mmol/L (22-30); Chloride 101 mmol/L (98-107); Cholesterol 133 mg/dL (0-200); Estimated Glomerular Filt Rate > 60; Glucose 71 mg/dL (65-110); HDL Direct 25 mg/dL; Potassium 4.3 mmol/L (3.4-5.0); Sodium 136 mmol/L (137-145); Triglycerides 76 mg/dL (<150)
[2022-03-11 18:52] LABS: LDL Cholesterol Direct 81 mg/dL
[2022-03-11 19:21] LABS: Vitamin D 25 Hydroxy 42.1 ng/mL
[2022-03-11 19:47] LABS: Basophils Absolute Auto 0.1 K/mm3 (0.0-0.1); Basophils Percent Auto 0.7 % (0.2-1.2); Eosinophils Absolute Auto 0.2 K/mm3 (0-0.3); Eosinophils Percent Auto 1.7 % (0-4.4); Hematocrit 56.9 % (42.0-52.0); Hemoglobin 17.4 g/dL (14.0-18.0); Immature Granulocyte Absolute 0.04 K/mm3 (0.00-0.031); Immature Granulocyte Percent A 0.4 % (0-0.5); Lymphocytes Absolute Auto 3.22 K/mm3 (0.9-3.2); Lymphocytes Percent Auto 29.9 % (18.3-44.2); Mean Corpuscular HGB Conc 30.6 g/dl (32-36); Mean Corpuscular Volume 88.2 fl (80-100); Mean Platelet Volume 8.8 fl (7.4-10.4); Monocytes Absolute Auto 1.3 K/mm3 (0.1-0.6); Monocytes Percent Auto 11.6 % (2.6-8.5); Neutrophils Percent Auto 55.7 % (45.5-73.1); Platelet Count Result 510 k/mm3 (150-375); Red Blood Count 6.45 M/mm3 (4.6-6.20); Red Cell Distribution Width 19.4 % (11.5-14.5); White Blood Count 10.8 K/mm3 (4.5-10.0)
== END 2022-03-11 08:45 | disposition home or self-care (01) ==
LOC: ANHGOSHLAB 08:46
PROVIDERS: PCP Family Medicine; Visit Provider Family Medicine
DX: E55.9 Vitamin D deficiency, unspecified (principal); I10 Essential (primary) hypertension; Z13.220 Encounter for screening for lipoid disorders; Z00.00 Encounter for general adult medical examination without abnormal findings
CPT/HCPCS: 36415; 80053; 80061; 82306; 84443; 85025

== ENCOUNTER 2022-05-21 14:29 | Outpatient (CLI) | payer OTHER, SELFPAY ==
[2022-05-21 14:44] LABS: Basophils Absolute Auto 0.1 K/mm3 (0.0-0.1); Eosinophils Absolute Auto 0.1 K/mm3 (0-0.3); Eosinophils Percent Auto 1.6 % (0-4.4); Hematocrit 54.3 % (42.0-52.0); Hemoglobin 17.9 g/dL (14.0-18.0); Immature Granulocyte Absolute 0.02 K/mm3 (0.00-0.031); Immature Granulocyte Percent A 0.3 % (0-0.5); Lymphocytes Absolute Auto 2.17 K/mm3 (0.9-3.2); Lymphocytes Percent Auto 31.3 % (18.3-44.2); Mean Corpuscular Hemoglobin 27.8 pg (26-34); Mean Corpuscular Volume 84.3 fl (80-100); Mean Platelet Volume 7.8 fl (7.4-10.4); Monocytes Percent Auto 14.4 % (2.6-8.5); Neutrophils Absolute Auto 3.6 K/mm3 (1.3-6.7); Neutrophils Percent Auto 51.4 % (45.5-73.1); Platelet Count Result 424 k/mm3 (150-375); Red Blood Count 6.44 M/mm3 (4.6-6.20); Red Cell Distribution Width 18.1 % (11.5-14.5); White Blood Count 6.9 K/mm3 (4.5-10.0)
[2022-05-21 16:38] LABS: Alanine Aminotransferase 55 U/L (6-50); Albumin Level 4.8 g/dL (3.5-5.1); Alkaline Phosphatase 48 U/L (38-126); Anion Gap 9 mmol/L (8-16); Aspartate Amino Transferase 68 U/L (17-59); Bilirubin,Total 0.7 mg/dL (0.2-1.3); Blood Urea Nitrogen 20 mg/dL (9-20); Calcium 9.6 mg/dL (8.4-10.2); Carbon Dioxide 26 mmol/L (22-30); Chloride 102 mmol/L (98-107); Estimated Glomerular Filt Rate 49; Glucose 89 mg/dL (65-110); Potassium 4.3 mmol/L (3.4-5.0); Sodium 137 mmol/L (137-145)
[2022-05-24 13:51] LABS: Erythropoietin (EPO) 11.1 mIU/mL (2.6-18.5)
[2022-05-26 14:05] LABS: Testosterone Free 399.6 pg/mL (35.0-155.0); Testosterone Total 1350 ng/dL (250-1100)
== END 2022-05-21 14:30 | disposition home or self-care (01) ==
LOC: ANHLAB 14:31
PROVIDERS: PCP Family Medicine; Visit Provider Internal Medicine Hematology & Oncology
DX: D75.1 Secondary polycythemia (principal)
CPT/HCPCS: 36415; 80053; 82668; 84402; 84403; 85025

== ENCOUNTER 2022-06-01 19:20 | Observation (INO) | payer OTHER, SELFPAY ==
[2022-06-01] VITALS (24 sets, daily range): BP systolic 127–160; BP diastolic 83–95; PULSE 86–100; RESP 13–22; TEMP 36.9–37.3; O2SAT 89–100
--- NOTE | ~2022-06-01 | XR_ITS ---
EXAMINATION: XR chest 1V portable DATE: 06/02/2022 06:35 INDICATION: Angioedema. TECHNIQUE: A single frontal view of the chest was obtained. COMPARISON: CT abdomen and pelvis 12/21/2019 FINDINGS: The chest demonstrates clear lungs without pneumonia, pleural effusion, or pneumothorax. Th e heart size is normal. IMPRESSION: 1. No acute cardiopulmonary disease. Reviewed, dictated and finalized at location A.
[2022-06-01] MEDS: SODIUM CHLORIDE 0.9% IV 1,000 ML 999 ML IV CONT (19:49)
[2022-06-01] MEDS: diphenhydrAMINE HCl INJ 50 MG/ML VIAL IV PUSH (19:49)
[2022-06-01] MEDS: EPINEPHrine HCL INJ 1 MG/ML AMPUL 0.3 MG IM (19:49)
[2022-06-01 19:59] LABS: Basophils Absolute Auto 0.1 K/mm3 (0.0-0.1); Basophils Percent Auto 0.6 % (0.2-1.2); Eosinophils Absolute Auto 0.1 K/mm3 (0-0.3); Eosinophils Percent Auto 0.6 % (0-4.4); Hematocrit 53.1 % (42.0-52.0); Hemoglobin 17.2 g/dL (14.0-18.0); Immature Granulocyte Absolute 0.05 K/mm3 (0.00-0.031); Immature Granulocyte Percent A 0.3 % (0-0.5); Lymphocytes Absolute Auto 2.59 K/mm3 (0.9-3.2); Mean Corpuscular HGB Conc 32.4 g/dl (32-36); Mean Corpuscular Volume 86.3 fl (80-100); Mean Platelet Volume 8.3 fl (7.4-10.4); Monocytes Absolute Auto 1.6 K/mm3 (0.1-0.6); Monocytes Percent Auto 10.9 % (2.6-8.5); Neutrophils Percent Auto 69.6 % (45.5-73.1); Platelet Count Result 496 k/mm3 (150-375); Red Blood Count 6.15 M/mm3 (4.6-6.20); Red Cell Distribution Width 18.6 % (11.5-14.5); White Blood Count 14.4 K/mm3 (4.5-10.0)
[2022-06-01 20:08] LABS: Alanine Aminotransferase 59 U/L (6-50); Albumin Level 4.8 g/dL (3.5-5.1); Alkaline Phosphatase 60 U/L (38-126); Anion Gap 7 mmol/L (8-16); Aspartate Amino Transferase 63 U/L (17-59); Bilirubin,Total 0.5 mg/dL (0.2-1.3); Blood Urea Nitrogen 16 mg/dL (9-20); Calcium 10.1 mg/dL (8.4-10.2); Carbon Dioxide 29 mmol/L (22-30); Chloride 104 mmol/L (98-107); Estimated CRCL calculation 69 ml/min; Estimated Glomerular Filt Rate > 60; Glucose 81 mg/dL (65-110); Potassium 4.2 mmol/L (3.4-5.0); Sodium 140 mmol/L (137-145)
--- NOTE | 2022-06-01 20:54 | PC.NURSE ---
Pt states he thinks his lip swelling has increased and has started to weep. Denies respiratory difficulty. EDP notified.
--- NOTE | 2022-06-01 20:57 | PC.NURSE ---
Patient stated that when he went to the bathroom around 2049 he urine came out in a dribble rather a steady stream and this was abnormal for him. Notified Dr. Mak.
[2022-06-01] MEDS: TRANEXAMIC ACID 1,000MG/ISO100 1,000 MG/100 ML BAG 200 MG IVPB (21:09)
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
[2022-06-01] MEDS: FAMOTIDINE 20 MG/2 ML VIAL IV PUSH (21:47)
[2022-06-01] MEDS: SODIUM CHLORIDE 0.9% IV 1,000 ML 125 ML IV CONT (21:56)
[2022-06-01] MEDS: methylPREDNISolone SOD SUCC 125 MG VIAL 60 MG IV PUSH (23:11)
[2022-06-02] VITALS (10 sets, daily range): BP systolic 111–138; BP diastolic 56–89; PULSE 60–104; RESP 16–20; TEMP 36.3–36.8; O2SAT 96–99; BMI 26.9; BMI 29.7
--- NOTE | 2022-06-02 00:50 | ADMGEN ---
This patient, Kahlil Faulkner, was admitted to IMU Room 209-01. Patient/family oriented to hospital policies and general routines including ID bracelet, bed and alarms, visiting hours, pain management, procedures, bathroom and other care routines, personal items, smoking policy, room service/diet, and visiting hours. Information on how to activate the Rapid Response Team has been discussed. Patient/Family are encouraged to report perceived risks to care and to ask questions if they do not understand what they are told or what they should do.
[2022-06-02] MEDS: racEPINEPHrine 2.25% NEBU SOLN 0.5 ML VIAL.NEB INHALATION (03:23)
[2022-06-02] MEDS: methylPREDNISolone SOD SUCC 125 MG VIAL 60 MG IV PUSH ×3 (06:35→21:19)
[2022-06-02] MEDS: amLODIPine BESYLATE 5 MG TABLET 10 MG PO (08:49)
[2022-06-02] MEDS: SODIUM CHLORIDE 0.9% IV 1,000 ML 125 ML IV CONT (08:49)
[2022-06-02] MEDS: FAMOTIDINE 20 MG/2 ML VIAL IV PUSH ×2 (08:49→21:12)
--- NOTE | 2022-06-02 09:52 | PM.IMPN ---
Progress Note: A&P Assessment and Plan (1) Angioedema of lips: Code(s): T78.3XXA - Angioneurotic edema, initial encounter Status: Acute Assessment and Plan: Received has tranexamic acid, epinephrine, Zantac, Solu Medrol in the ER Likely etiology JEAN PAUL inhibitor induced Stop JEAN PAUL inhibitor Continue Solu-Medrol and H2 fanny No family history of angioedema (2) Essential (primary) hypertension: Code(s): I10 - Essential (primary) hypertension Status: Acute Assessment and Plan: Continue to monitor Hydralazine p.r.n. for systolic of 150 or above Resume amlodipine May add hydrochlorothiazide if needed (3) Hepatitis C: Code(s): B19.20 - Unspecified viral hepatitis C without hepatic coma Status: Acute Assessment and Plan: Follow-up in outpatient setting (4) Tobacco use: Code(s): Z72.0 - Tobacco use Status: Acute Assessment and Plan: Nicotine patch as needed Plan Can move out of the IMU. Subjective Date/time seen: 06/02/22 09:52 Interval history: Lip swelling is improving. This is his 3rd episode. Recently started on lisinopril. Previous episodes spontaneously resolved with Benadryl at home. Denies any shortness of breath Review of Systems Review of Systems: All systems reviewed & are unremarkable except as noted in HPI and below Exam Narrative: GENERAL: Well-appearing, well-nourished, and in no acute distress. HEAD: Normocephalic, atraumatic. EYES: PERRLA and EOMI. ENT: Nares clear, no rhinorrhea or epistaxis.? Mucous membranes moist.? There is angioedema of the upper lip tongue is not swollen airway is patent NECK: Supple. CHEST: Clear to auscultation.? No respiratory distress. HEART: Regular rate and rhythm.? No murmur heard.? Normal peripheral pulses. ABDOMEN: Soft, nontender, nondistended, normal active bowel sounds. EXTREMITIES: Normal range of motion.? No edema. SKIN: Warm, dry, no rash. NEURO: No focal deficits.? Alert and oriented x3. PSYCH: Normal mood and affect. Objective Data Vital Signs Vital Signs: Vital Signs - 24 hr 06/01/22 19:27 06/01/22 19:33 06/01/22 19:39 Temperature 99.2 F 98.4 F Pulse Rate 95 93 Respiratory Rate 18 13 Blood Pressure 147/83 H 142/95 H Pulse Oximetry 95 99 99 Oxygen Delivery Room Air Room Air 06/01/22 20:27 06/01/22 21:31 06/01/22 19:33 Temperature Pulse Rate 91 94 Respiratory Rate 16 18 Blood Pressure 155/93 H 127/87 Pulse Oximetry 100 95 98 Oxygen Delivery 06/01/22 19:37 06/01/22 20:01 06/01/22 20:02 Temperature Pulse Rate 92 96 92 Respiratory Rate 16 22 H 19 Blood Pressure 142/95 H 146/93 H Pulse Oximetry 98 94 97 Oxygen Delivery 06/01/22 20:15 06/01/22 20:16 06/01/22 20:30 Temperature Pulse Rate 98 98 93 Respiratory Rate 19 18 20 Blood Pressure 155/93 H Pulse Oximetry 99 99 100 Oxygen Delivery 06/01/22 20:31 06/01/22 20:46 06/01/22 20:47 Temperature Pulse Rate 97 100 96 Respiratory Rate 21 H 17 19 Blood Pressure 149/90 H 160/93 H Pulse Oximetry 100 89 L 96 Oxygen Delivery 06/01/22 21:00 06/01/22 21:01 06/01/22 21:15 Temperature Pulse Rate 93 95 93 Respiratory Rate 17 17 20 Blood Pressure 146/94 H Pulse Oximetry 97 93 95 Oxygen Delivery 06/01/22 21:16 06/01/22 21:33 06/01/22 21:46 Temperature Pulse Rate 96 94 89 Respiratory Rate 18 16 17 Blood Pressure 140/92 H Pulse Oximetry 93 94 96 Oxygen Delivery 06/01/22 22:00 06/01/22 22:15 06/01/22 22:30 Temperature Pulse Rate 94 89 86 Respiratory Rate 16 18 17 Blood Pressure Pulse Oximetry 95 96 95 Oxygen Delivery 06/01/22 23:01 06/02/22 00:25 06/02/22 00:43 Temperature 98.0 F Pulse Rate 92 93 64 Respiratory Rate 21 H 18 20 Blood Pressure 135/80 138/89 Pulse Oximetry 96 97 96 Oxygen Delivery 06/02/22 03:24 06/02/22 03:31 06/02/22 02:00 Temperature Pulse Rate 85 88 87 Respiratory Rate 17 16 Blood Pre
--- NOTE | 2022-06-02 11:26 | PC.NURSE ---
This patient, Kahlil Faulkner, was transferred to [ 324] on 06/02/22 at 1126. Personal belongings sent with patient. Report given to [AMBER Pan @ 1120 ]. Appropriate documentation sent with patient.
--- NOTE | 2022-06-02 18:10 | PC.NURSE ---
Pt transferred down from IMU. Pt reports swelling has gone down in face. Pt is A&O4. Pt has participated and contributed in plan of care. Pt has had no complaints of pain and expresses no needs at this time. Will continue to monitor pt.
[2022-06-02] MEDS: traZODone HCL 50 MG TABLET PO (21:12)
[2022-06-02] MEDS: NICOTINE (*PBKC) 21 MG PATCH 1 PATCH TRANSDERM (23:18)
[2022-06-03] MEDS: methylPREDNISolone SOD SUCC 125 MG VIAL 60 MG IV PUSH (05:59)
[2022-06-03 06:25] LABS: Basophils Percent Auto 0.1 % (0.2-1.2); Hematocrit 46.6 % (42.0-52.0); Hemoglobin 15.3 g/dL (14.0-18.0); Immature Granulocyte Percent A 0.8 % (0-0.5); Lymphocytes Absolute Auto 1.04 K/mm3 (0.9-3.2); Lymphocytes Percent Auto 4.3 % (18.3-44.2); Mean Corpuscular HGB Conc 32.8 g/dl (32-36); Mean Corpuscular Hemoglobin 27.7 pg (26-34); Mean Corpuscular Volume 84.4 fl (80-100); Mean Platelet Volume 8.4 fl (7.4-10.4); Monocytes Absolute Auto 1.6 K/mm3 (0.1-0.6); Monocytes Percent Auto 6.5 % (2.6-8.5); Neutrophils Absolute Auto 21.1 K/mm3 (1.3-6.7); Neutrophils Percent Auto 88.3 % (45.5-73.1); Platelet Count Result 494 k/mm3 (150-375); Red Blood Count 5.52 M/mm3 (4.6-6.20); Red Cell Distribution Width 17.7 % (11.5-14.5)
[2022-06-03 06:35] LABS: Alanine Aminotransferase 41 U/L (6-50); Albumin Level 3.9 g/dL (3.5-5.1); Alkaline Phosphatase 80 U/L (38-126); Anion Gap 5 mmol/L (8-16); Aspartate Amino Transferase 41 U/L (17-59); Bilirubin,Total 0.4 mg/dL (0.2-1.3); Blood Urea Nitrogen 22 mg/dL (9-20); Calcium 9.3 mg/dL (8.4-10.2); Carbon Dioxide 27 mmol/L (22-30); Chloride 106 mmol/L (98-107); Estimated CRCL calculation 72 ml/min; Estimated Glomerular Filt Rate > 60; Glucose 175 mg/dL (65-110); Potassium 4.2 mmol/L (3.4-5.0); Sodium 138 mmol/L (137-145)
[2022-06-03 06:44] VITALS: BP 131/83; PULSE 85; RESP 18; TEMP 35.7; O2SAT 97
[2022-06-03 07:35] LABS: Platelet Estimate Increased (Adequate)
[2022-06-03 07:36] LABS: Burr Cells 1+ (NORMAL); Schistocytes None Seen (NORMAL); Target Cells 2+ (NORMAL)
[2022-06-03] MEDS: FAMOTIDINE 20 MG/2 ML VIAL IV PUSH (08:31)
[2022-06-03] MEDS: amLODIPine BESYLATE 5 MG TABLET 10 MG PO (08:31)
[2022-06-03] MEDS: NICOTINE (*PBKC) 21 MG PATCH 1 PATCH TRANSDERM (08:32)
--- NOTE | 2022-06-03 11:54 | PM.DS ---
DS: Admitting Diagnosis Discharge Date 06/03/2022 Admitting Diagnosis Angioedema DS: Discharge Diagnosis Discharge Diagnosis (1) Angioedema of lips: Code(s): T78.3XXA - Angioneurotic edema, initial encounter Status: Acute DS: Summary Hospital Course Hospital Course: This is a 46-year-old male with past medical history significant for hypertension, duodenal ulcer, tobacco use, chronic kidney disease.? Patient presents to the emergency room due to lip swelling, difficulty swallowing.? In emergency room patient was found to have lip swelling after taking lisinopril, patient has been in his usual state of health, denies any fevers, rigors, chills, cough, sputum production, nausea, vomiting, no wheezing. Patient was started on Solu-Medrol and epinephrine. Lisinopril was discontinued. He was started on amlodipine. His swelling is completely resolved and will discharge him home with amlodipine hydrochlorothiazide. Time Spent with Patient Time attestation: Total time spent providing and/or coordinating discharge services: Exam Const: General: cooperative and comfortable Orientation/consciousness: patient oriented x3 HENMT: Head: normal to inspection Mouth: Yes Normal oral and palatal mucosa present Eyes: General: appearance normal, both eyes and all related structures Resp: Effort & Inspection: normal respiratory effort Auscultation: clear to auscultation bilaterally Cardio: Rate: regular rate Rhythm: regular rhythm Heart sounds: S1 normal heart sound present and S2 normal heart sound present GI: GI Palp: Yes Soft to palpation Auscultation: normal bowel sounds Skin: General skin exam: normal color and no rashes or lesions noted Neuro: General: patient oriented x3, no focal motor deficits and CN's II-XI intact bilaterally Speech: normal speech Extrem: General: full ROM Psych: Appearance: grossly normal DS: Data Data Completed and Pending Labs on day of discharge: Labs from last 24 hours 06/03/22 06/03/22 05:57 05:57 WBC 24.0 H RBC 5.52 Hgb 15.3 Hct 46.6 MCV 84.4 MCH 27.7 MCHC 32.8 RDW 17.7 H Plt Count 494 H MPV 8.4 Immature Gran % (Auto) 0.8 H Neut % (Auto) 88.3 H Lymph % (Auto) 4.3 L Garden % (Auto) 6.5 Eos % (Auto) 0.0 Baso % (Auto) 0.1 L Lymph # (Auto) 1.04 Garden # (Auto) 1.6 H Eos # (Auto) 0.0 Baso # (Auto) 0.0 Abs Immat Gran (auto) 0.20 H Absolute Neuts (auto) 21.1 H Absolute Nucleated RBC 0.0 Nucleated RBC % 0.0 Platelet Estimate Increased Target Cells 2+ Zuly Cells 1+ Schistocytes None seen Sodium 138 Potassium 4.2 Chloride 106 Carbon Dioxide 27 Anion Gap 5 L BUN 22 H Creatinine 1.20 Estim Creat Clear Calc 72 Estimated GFR > 60 Glucose 175 H Calcium 9.3 Total Bilirubin 0.4 AST 41 ALT 41 Alkaline Phosphatase 80 Total Protein 7.0 Albumin 3.9 Discharge Plan Discharge Discharging Clinician: Jose Park Anticipated Discharge Date/Time: 06/03/22 10:33 Patient Disposition: Home, Self-Care Activity: july shower Diet: heart healthy Patient Instructions: Antibiotic Form Stand Alone Forms: General Discharge Information Follow-up/Referrals: Monisha Tai MD [Primary Care Provider] - Discharge Medications: New hydrochlorothiazide 50 mg tablet 50 mg PO DAILY Qty: 30 0RF Continued tadalafil [Cialis] 20 mg tablet 20 mg PO DAILY PRN (Reason: sexual activity) Qty: 30 0RF Rx Instructions: administer approximately 30min before sexual activity; do not use more than 1 dose per 24hrs trazodone 50 mg tablet 50 mg PO QHS Qty: 90 0RF amlodipine 10 mg tablet 10 mg PO DAILY Qty: 90 0RF naproxen 500 mg tablet 500 mg PO BID PRN (Reason: pain) Qty: 30 0RF Discontinued lisinopril-hydrochlorothiazide 20-25 mg tablet 1 tablet PO DAILY Qty: 90 0RF Date of admission: 06/01/22 21:42 Primary Care Provider: Meena Tai
--- NOTE | 2022-06-03 15:09 | PC.NURSE ---
Pt is A&O4 male who discharged home after having an allergic reaction to medication. Prior to discharge pt IV was removed. Pt has no reports of pain and swelling has resolved. Discharge instructions were reviewed with pt and any questions were answered. Pt was monitored for any changes in status while here. Pt participated and contributed in plan of care.
== END 2022-06-03 14:50 | disposition home or self-care (01) ==
LOC: ANHED 21:42 → ANHIMU 06-02 00:12 → ANH3MEDSUR 06-02 11:47
PROVIDERS: Internal Medicine; Admitting Provider Internal Medicine; Emergency Provider Emergency Medicine; PCP Family Medicine; Visit Provider Hospitalist
DX: T78.3XXA Angioneurotic edema, initial encounter (principal); T46.4X5A Adverse effect of angiotensin-converting-enzyme inhibitors, initial encounter; I10 Essential (primary) hypertension; B19.20 Unspecified viral hepatitis C without hepatic coma; F17.210 Nicotine dependence, cigarettes, uncomplicated
CPT/HCPCS: 36415; 71045; 80053; 85025; 94640; 96361; 96365; 96372; 96374; 96375; 96376; 99285; A9270; G0378; G0379; J0171; J1200; J2930; J7030

== ENCOUNTER 2022-09-18 10:38 | Outpatient (CLI) | payer OTHER, SELFPAY ==
[2022-09-18 10:53] LABS: Basophils Absolute Auto 0.1 K/mm3 (0.0-0.1); Basophils Percent Auto 0.8 % (0.2-1.2); Eosinophils Absolute Auto 0.1 K/mm3 (0-0.3); Eosinophils Percent Auto 1.1 % (0-4.4); Hematocrit 51.7 % (42.0-52.0); Hemoglobin 17.1 g/dL (14.0-18.0); Immature Granulocyte Absolute 0.02 K/mm3 (0.00-0.031); Immature Granulocyte Percent A 0.2 % (0-0.5); Lymphocytes Percent Auto 31.6 % (18.3-44.2); Mean Corpuscular HGB Conc 33.1 g/dl (32-36); Mean Corpuscular Hemoglobin 26.9 pg (26-34); Mean Corpuscular Volume 81.3 fl (80-100); Mean Platelet Volume 8.2 fl (7.4-10.4); Monocytes Absolute Auto 1.3 K/mm3 (0.1-0.6); Monocytes Percent Auto 15.4 % (2.6-8.5); Neutrophils Absolute Auto 4.4 K/mm3 (1.3-6.7); Neutrophils Percent Auto 50.9 % (45.5-73.1); Platelet Count Result 385 k/mm3 (150-375); Red Blood Count 6.36 M/mm3 (4.6-6.20); Red Cell Distribution Width 17.9 % (11.5-14.5); White Blood Count 8.6 K/mm3 (4.5-10.0)
[2022-09-18 12:20] LABS: Alanine Aminotransferase 85 U/L (6-50); Albumin Level 4.6 g/dL (3.5-5.1); Alkaline Phosphatase 50 U/L (38-126); Anion Gap 6 mmol/L (8-16); Aspartate Amino Transferase 165 U/L (17-59); Bilirubin,Total 0.6 mg/dL (0.2-1.3); Blood Urea Nitrogen 18 mg/dL (9-20); Calcium 9.1 mg/dL (8.4-10.2); Carbon Dioxide 29 mmol/L (22-30); Chloride 101 mmol/L (98-107); Cholesterol 132 mg/dL (0-200); Estimated Glomerular Filt Rate > 60; Glucose 84 mg/dL (65-110); HDL Direct 18 mg/dL; Potassium 3.7 mmol/L (3.4-5.0); Sodium 136 mmol/L (137-145); Triglycerides 85 mg/dL (<150)
[2022-09-18 12:30] LABS: LDL Cholesterol Direct 90 mg/dL
[2022-09-18 12:37] LABS: Vitamin D 25 Hydroxy 65.3 ng/mL
[2022-09-18 12:57] LABS: Erythrocyte Sedimentation Rate 1 mm/hr (0-20)
[2022-09-26 19:02] LABS: Testosterone Free 752.6 pg/mL (35.0-155.0); Testosterone Total 1965 ng/dL (250-1100)
== END 2022-09-18 10:39 | disposition home or self-care (01) ==
LOC: ANHLAB 10:39
PROVIDERS: Nurse Practitioner Family; PCP Family Medicine; Visit Provider Internal Medicine Hematology & Oncology
DX: M25.50 Pain in unspecified joint (principal); D75.1 Secondary polycythemia; Z00.00 Encounter for general adult medical examination without abnormal findings; I10 Essential (primary) hypertension; E55.9 Vitamin D deficiency, unspecified
CPT/HCPCS: 36415; 80053; 80061; 82306; 84402; 84403; 84443; 85025; 85652

== ENCOUNTER 2022-09-25 10:01 | Outpatient (CLI) | payer OTHER, SELFPAY ==
--- NOTE | ~2022-09-25 | US_ITS ---
US abdomen complete DATE: 09/25/2022 10:30 INDICATION: Elevated serum enzymes TECHNIQUE: Real-time imaging of the abdomen, Doppler analysis COMPARISON: 12/21/2019 CT abdomen pelvis FINDINGS: No hepatic or pancreatic space-occupying mass lesion. Normal hepatopedal portal venous flow direction. No gallstones or gallbladder wall thickening or abnormal pericholecystic fluid collection . No gallstones or gallbladder wall thickening or pericholecystic fluid collection. The common bile dariusz t measures up to approximately 5 mm, within normal range. No renal mass lesion or hydronephrosis is detected. The spleen is absent. Normal caliber of the abdominal aorta. The inferior vena cava is unremarkable. IMPRESSION: No significant abnormality Reviewed, dictated and finalized at Location [facility]. Reviewed, dictated and finalized at location B. IMPRESSION: No significant abnormality
[2022-09-25 11:40] LABS: Hepatitis B Surface Antigen Negative (Negative)
[2022-09-25 11:46] LABS: HAV RESULT Negative (Negative); Hepatitis B Core IgM Result Negative (Negative)
[2022-09-25 11:58] LABS: Hepatitis C Virus Antibody Reactive (Negative)
[2022-09-30 14:45] LABS: Testosterone Free 587.5 pg/mL (35.0-155.0); Testosterone Total 1728 ng/dL (250-1100)
== END 2022-09-25 10:02 | disposition home or self-care (01) ==
PROVIDERS: PCP Family Medicine; Visit Provider Nurse Practitioner Family
DX: R74.8 Abnormal levels of other serum enzymes (principal); B19.20 Unspecified viral hepatitis C without hepatic coma
CPT/HCPCS: 36415; 76700; 80074; 84402; 84403; 87522

== ENCOUNTER 2023-01-18 11:54 | Outpatient (CLI) | payer OTHER, SELFPAY ==
[2023-01-18 12:29] LABS: Basophils Absolute Auto 0.1 K/mm3 (0.0-0.1); Eosinophils Absolute Auto 0.1 K/mm3 (0-0.3); Eosinophils Percent Auto 1.4 % (0-4.4); Hemoglobin 17.4 g/dL (14.0-18.0); Immature Granulocyte Absolute 0.05 K/mm3 (0.00-0.031); Immature Granulocyte Percent A 0.6 % (0-0.5); Lymphocytes Absolute Auto 2.27 K/mm3 (0.9-3.2); Mean Corpuscular HGB Conc 32.2 g/dl (32-36); Mean Corpuscular Hemoglobin 27.7 pg (26-34); Mean Corpuscular Volume 85.9 fl (80-100); Mean Platelet Volume 7.8 fl (7.4-10.4); Monocytes Absolute Auto 0.9 K/mm3 (0.1-0.6); Monocytes Percent Auto 10.5 % (2.6-8.5); Neutrophils Absolute Auto 5.3 K/mm3 (1.3-6.7); Neutrophils Percent Auto 60.5 % (45.5-73.1); Platelet Count Result 419 k/mm3 (150-375); Red Blood Count 6.29 M/mm3 (4.6-6.20); Red Cell Distribution Width 18.5 % (11.5-14.5); White Blood Count 8.7 K/mm3 (4.5-10.0)
[2023-01-18 16:49] LABS: Alanine Aminotransferase 32 U/L (6-50); Albumin Level 4.3 g/dL (3.5-5.1); Alkaline Phosphatase 45 U/L (38-126); Aspartate Amino Transferase 62 U/L (17-59); Bilirubin,Total 0.5 mg/dL (0.2-1.3)
[2023-01-18 16:52] LABS: Alanine Aminotransferase 34 U/L (6-50); Albumin Level 4.3 g/dL (3.5-5.1); Alkaline Phosphatase 43 U/L (38-126); Anion Gap 11 mmol/L (8-16); Aspartate Amino Transferase 58 U/L (17-59); Bilirubin,Total 0.5 mg/dL (0.2-1.3); Blood Urea Nitrogen 13 mg/dL (9-20); Calcium 9.3 mg/dL (8.4-10.2); Carbon Dioxide 23 mmol/L (22-30); Chloride 105 mmol/L (98-107); Estimated Glomerular Filt Rate > 60; Glucose 96 mg/dL (65-110); Sodium 139 mmol/L (137-145)
[2023-01-20 16:52] LABS: Hepatitis C RNA, Quant PCR <15 IU/mL
== END 2023-01-18 11:55 | disposition home or self-care (01) ==
PROVIDERS: Nurse Practitioner Family; PCP Family Medicine; Visit Provider Internal Medicine Hematology & Oncology
DX: R74.8 Abnormal levels of other serum enzymes (principal); I10 Essential (primary) hypertension; B19.20 Unspecified viral hepatitis C without hepatic coma; D75.1 Secondary polycythemia
CPT/HCPCS: 36415; 80053; 80076; 85025; 87522

== ENCOUNTER 2023-06-30 09:44 | Emergency (ER) | payer OTHER, SELFPAY ==
[2023-06-30] VITALS (15 sets, daily range): BP systolic 124–166; BP diastolic 65–100; PULSE 77–93; RESP 14–22; TEMP 36.6; O2SAT 93–100
--- NOTE | 2023-06-30 09:53 | ECG_ITS ---
SEE SCANNED COPY FOR CONFIRMED REPORT MTDD
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
[2023-06-30 11:28] LABS: Appearance Urine Clear (Clear); Bilirubin Urine Negative (Negative); Blood Urine Negative (Negative); Color Urine Yellow (Yellow); Glucose Urine UA Negative (Negative); Ketones Urine Negative (Negative); Leukocyte Esterase Ur Negative LEU/UL (Negative); Nitrate Urine Negative (Negative); Protein Urine Negative (Negative); Specific Grav Ur 1.016 (1.001-1.035)
[2023-06-30 11:30] LABS: Basophils Absolute Auto 0.1 K/mm3 (0.0-0.1); Basophils Percent Auto 0.7 % (0.2-1.2); Eosinophils Absolute Auto 0.1 K/mm3 (0-0.3); Eosinophils Percent Auto 1.2 % (0-4.4); Hematocrit 55.2 % (42.0-52.0); Hemoglobin 17.7 g/dL (14.0-18.0); Immature Granulocyte Absolute 0.02 K/mm3 (0.00-0.031); Immature Granulocyte Percent A 0.2 % (0-0.5); Lymphocytes Absolute Auto 1.67 K/mm3 (0.9-3.2); Lymphocytes Percent Auto 18.8 % (18.3-44.2); Mean Corpuscular HGB Conc 32.1 g/dl (32-36); Mean Corpuscular Hemoglobin 27.7 pg (26-34); Mean Corpuscular Volume 86.4 fl (80-100); Mean Platelet Volume 8.2 fl (7.4-10.4); Monocytes Absolute Auto 0.9 K/mm3 (0.1-0.6); Monocytes Percent Auto 9.8 % (2.6-8.5); Neutrophils Absolute Auto 6.2 K/mm3 (1.3-6.7); Neutrophils Percent Auto 69.3 % (45.5-73.1); Platelet Count Result 388 k/mm3 (150-375); Red Blood Count 6.39 M/mm3 (4.6-6.20); Red Cell Distribution Width 18.1 % (11.5-14.5); White Blood Count 8.9 K/mm3 (4.5-10.0)
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
[2023-06-30 11:36] LABS: Acetaminophen < 10 ug/mL (10-30); Ethanol < 10 mg/dL (<10); Salicylate < 1.0 mg/dL (2-20)
[2023-06-30 11:38] LABS: Alanine Aminotransferase 45 U/L (6-50); Albumin Level 4.1 g/dL (3.5-5.1); Alkaline Phosphatase 52 U/L (38-126); Anion Gap 4 mmol/L (4-12); Aspartate Amino Transferase 41 U/L (17-59); Bilirubin,Total 0.6 mg/dL (0.2-1.3); Blood Urea Nitrogen 13 mg/dL (9-20); Calcium 9.1 mg/dL (8.4-10.2); Carbon Dioxide 24 mmol/L (22-30); Chloride 107 mmol/L (98-107); Estimated Glomerular Filt Rate > 60; Glucose 92 mg/dL (65-110); Potassium 3.8 mmol/L (3.4-5.0); Sodium 135 mmol/L (137-145)
[2023-06-30 11:47] LABS: Barbiturate Screen Urine Negative (Negative); Benzodiazepines Screen Urine Negative (Negative)
[2023-06-30 11:48] LABS: Cannabinoid Screen Urine Negative (Negative); Cocaine Screen Urine Negative (Negative); Methadone Screen Urine Negative (Negative); Opiate Screen Urine Negative (Negative); Phencyclidine Screen Urine Negative (Negative)
[2023-06-30 11:51] LABS: Amphetamine Screen Urine Positive (Negative)
[2023-06-30 12:01] LABS: Troponin I < 0.012 ng/mL (0.000-0.034)
[2023-06-30 12:03] LABS: SARS-CoV-2 RNA PCR Negative (Negative)
[2023-06-30 12:11] LABS: Add Urine Microscopic? NO
--- NOTE | 2023-06-30 13:43 | PC.NURSE ---
Spoke with [facility] - Closing the case.
[2023-06-30 14:20] LABS: Troponin I < 0.012 ng/mL (0.000-0.034)
--- NOTE | 2023-06-30 19:05 | PC.NURSE ---
Repot given to AMBER Dye
== END 2023-06-30 20:52 ==
LOC: ANHED 10:24
PROVIDERS: Emergency Provider Student in an Organized Health Care Education/Training Program; PCP Family Medicine
DX: T40.2X1A Poisoning by other opioids, accidental (unintentional), initial encounter (principal); F15.10 Other stimulant abuse, uncomplicated; S02.5XXA Fracture of tooth (traumatic), initial encounter for closed fracture; Z11.52 Encounter for screening for COVID-19; I10 Essential (primary) hypertension; F90.9 Attention-deficit hyperactivity disorder, unspecified type; Z90.81 Acquired absence of spleen; X58.XXXA Exposure to other specified factors, initial encounter
CPT/HCPCS: 36415; 80053; 80307; 81003; 84443; 84484; 85025; 87635; 93005; 99285

== ENCOUNTER 2024-01-21 12:39 | Outpatient (CLI) | payer OTHER, SELFPAY ==
[2024-01-21 18:05] LABS: Basophils Absolute Auto 0.1 K/mm3 (0.0-0.1); Basophils Percent Auto 0.9 % (0.2-1.2); Eosinophils Absolute Auto 0.2 K/mm3 (0-0.3); Eosinophils Percent Auto 2.1 % (0-4.4); Hematocrit 62.4 % (42.0-52.0); Hemoglobin 20.1 g/dL (14.0-18.0); Immature Granulocyte Absolute 0.06 K/mm3 (0.00-0.031); Immature Granulocyte Percent A 0.7 % (0-0.5); Lymphocytes Absolute Auto 2.44 K/mm3 (0.9-3.2); Mean Corpuscular HGB Conc 32.2 g/dl (32-36); Mean Corpuscular Hemoglobin 28.1 pg (26-34); Mean Corpuscular Volume 87.3 fl (80-100); Mean Platelet Volume 8.8 fl (7.4-10.4); Monocytes Percent Auto 10.9 % (2.6-8.5); Neutrophils Percent Auto 57.4 % (45.5-73.1); Platelet Count Result 343 k/mm3 (150-375); Red Blood Count 7.15 M/mm3 (4.6-6.20); Red Cell Distribution Width 18.5 % (11.5-14.5); White Blood Count 8.7 K/mm3 (4.5-10.0)
[2024-01-21 18:15] LABS: Alanine Aminotransferase 37 U/L (6-50); Albumin Level 4.5 g/dL (3.5-5.1); Alkaline Phosphatase 71 U/L (38-126); Anion Gap 10 mmol/L (4-12); Aspartate Amino Transferase 54 U/L (17-59); Bilirubin,Total 0.5 mg/dL (0.2-1.3); Blood Urea Nitrogen 15 mg/dL (9-20); Calcium 9.7 mg/dL (8.4-10.2); Carbon Dioxide 27 mmol/L (22-30); Chloride 101 mmol/L (98-107); Cholesterol 160 mg/dL (0-200); Estimated Glomerular Filt Rate > 60; Glucose 89 mg/dL (65-110); HDL Direct 31 mg/dL; Potassium 4.3 mmol/L (3.4-5.0); Sodium 138 mmol/L (137-145); Triglycerides 80 mg/dL (<150)
[2024-01-21 18:26] LABS: LDL Cholesterol Direct 101 mg/dL
[2024-01-21 18:44] LABS: Prostate Specific Antigen 1.2 ng/mL (< OR = 4.0)
[2024-01-21 22:55] LABS: Vitamin D 25 Hydroxy 53.9 ng/mL
== END 2024-01-21 12:40 | disposition home or self-care (01) ==
LOC: ANHGOSHLAB 12:40
PROVIDERS: PCP Family Medicine; Visit Provider Nurse Practitioner Family
DX: Z00.00 Encounter for general adult medical examination without abnormal findings (principal); I10 Essential (primary) hypertension; E55.9 Vitamin D deficiency, unspecified; Z12.5 Encounter for screening for malignant neoplasm of prostate
CPT/HCPCS: 36415; 80053; 80061; 82306; 84153; 84443; 85025; G0103

== ENCOUNTER 2024-03-21 15:34 | Outpatient (CLI) | payer OTHER, SELFPAY ==
[2024-03-21 19:16] LABS: Basophils Absolute Auto 0.1 K/mm3 (0.0-0.1); Eosinophils Absolute Auto 0.1 K/mm3 (0-0.3); Eosinophils Percent Auto 1.7 % (0-4.4); Hematocrit 55.8 % (42.0-52.0); Hemoglobin 18.1 g/dL (14.0-18.0); Immature Granulocyte Absolute 0.02 K/mm3 (0.00-0.031); Immature Granulocyte Percent A 0.3 % (0-0.5); Lymphocytes Absolute Auto 2.28 K/mm3 (0.9-3.2); Lymphocytes Percent Auto 29.3 % (18.3-44.2); Mean Corpuscular HGB Conc 32.4 g/dl (32-36); Mean Corpuscular Hemoglobin 28.3 pg (26-34); Mean Corpuscular Volume 87.3 fl (80-100); Mean Platelet Volume 8.9 fl (7.4-10.4); Monocytes Absolute Auto 0.8 K/mm3 (0.1-0.6); Monocytes Percent Auto 10.8 % (2.6-8.5); Neutrophils Absolute Auto 4.4 K/mm3 (1.3-6.7); Neutrophils Percent Auto 56.9 % (45.5-73.1); Platelet Count Result 374 k/mm3 (150-375); Red Blood Count 6.39 M/mm3 (4.6-6.20); White Blood Count 7.8 K/mm3 (4.5-10.0)
[2024-03-21 19:48] LABS: Alanine Aminotransferase 139 U/L (6-50); Albumin Level 4.5 g/dL (3.5-5.1); Alkaline Phosphatase 75 U/L (38-126); Anion Gap 10 mmol/L (4-12); Aspartate Amino Transferase 66 U/L (17-59); Bilirubin,Total 0.8 mg/dL (0.2-1.3); Blood Urea Nitrogen 28 mg/dL (9-20); Calcium 9.5 mg/dL (8.4-10.2); Carbon Dioxide 23 mmol/L (22-30); Chloride 106 mmol/L (98-107); Estimated Glomerular Filt Rate 46; Glucose 93 mg/dL (65-110); Potassium 4.1 mmol/L (3.4-5.0); Sodium 139 mmol/L (137-145)
== END 2024-03-21 15:35 | disposition home or self-care (01) ==
LOC: ANHGOSHLAB 15:37
PROVIDERS: PCP Family Medicine; Visit Provider Internal Medicine Hematology & Oncology
DX: D75.1 Secondary polycythemia (principal)
CPT/HCPCS: 36415; 80053; 85025

== ENCOUNTER 2024-12-19 11:44 | Outpatient (CLI) | payer OTHER, SELFPAY ==
[2024-12-19 13:09] LABS: Alanine Aminotransferase 25 U/L (6-50); Albumin Level 4.4 g/dL (3.5-5.1); Alkaline Phosphatase 66 U/L (38-126); Anion Gap 8 mmol/L (4-12); Aspartate Amino Transferase 38 U/L (17-59); Bilirubin,Total 0.4 mg/dL (0.2-1.3); Blood Urea Nitrogen 17 mg/dL (9-20); Calcium 9.9 mg/dL (8.4-10.2); Carbon Dioxide 28 mmol/L (22-30); Chloride 102 mmol/L (98-107); Cholesterol 156 mg/dL (0-200); Estimated Glomerular Filt Rate > 60; Glucose 114 mg/dL (65-110); HDL Direct 41 mg/dL; Potassium 4.0 mmol/L (3.4-5.0); Sodium 138 mmol/L (137-145); Total Protein 8.3 g/dL (6.3-8.2); Triglycerides 102 mg/dL (<150)
[2024-12-19 13:22] LABS: Hematocrit 55.5 % (42.0-52.0); Hemoglobin 18.0 g/dL (14.0-18.0); Immature Granulocyte Percent A 0.7 % (0-0.5); Lymphocytes Absolute Auto 2.59 K/mm3 (0.9-3.2); Mean Corpuscular HGB Conc 32.4 g/dl (32-36); Mean Corpuscular Hemoglobin 29.0 pg (26-34); Mean Corpuscular Volume 89.5 fl (80-100); Nucleated Red Blood Cells Absolute Auto 0.000 K/mm3 (0.0-0.012); Nucleated Red Blood Cells Perc 0.0 % (0.0-0.2); Platelet Count Result 332 k/mm3 (150-375); Red Blood Count 6.20 M/mm3 (4.6-6.20); White Blood Count 6.9 K/mm3 (4.5-10.0)
--- OUTSIDE RECORDS SUMMARY | 2024-12-19 13:46 | XMS_ITS | Clinical Summary ---
Author Organization [facility] Address [address] [place] [address] Care Team Providers Care Sales And Marketing Analyst Name Role Phone Unavailable Primary Care Provider Unavailabl e Source Comments [facility],non-owned Affiliates and Associated Physician Practices is amultiple site organization consisting of ambulatory clinics and hospital sitesin [place], [place] and [place]. This disclosure is being madepursuant to the Care Everywhere program and may not contain all information available regarding this patient. Last updated 17.[facility] Allergies Active Allergy Reactions Criticality Noted Date Comments Sulfa Drugs Anaphylaxis High 07/16/2016 Medications * Be aware that medications may not be up to date on this document. Alwaysverify current medications with the patient. Testosterone 200 MG Active Mavyret 100-40 MG tabletIndicatio ns:Hepatitis C, Genotype 3 Take 3 (three) tablets by mouth daily with food Reasons: Hepatitis due to Hepatitis C Virus, Genotype 3 84 tablet 1 2 Active Active Problems Problem Noted Date Diagnosed Date Chronic hepatitis C without hepatic coma 022 Overview (11/29/2021): Hepatitis B core antibody Non reactive, No immunity to hepatitis B Genotype 3a 11/25/21 Fibroscan CAP 203, LSM 8.0 kPa Family History Medical History Relation Name Comments Cardiomyopathy Mother Hypertension Mother Relation Name Status Comments Mother Social History Tobacco Use Types Packs/Day Years Used Date Smoking Tobacco: Every Day Cigarettes Smokeless Tobacco: Never Tobacco Cessation:Ready to Q uit: No Alcohol Use Standard Drinks/Week Comments No 0 (1 standard drink = 0.6 oz pur e alcohol) Sex and Gender Information Value Date Recorded Sex Assigned at Not on file Legal Sex Male 5:38 PM SHIP CAPTAIN Gender Identity Not on file Sexual Orientation Not on file Last Filed Vital Signs Vital Sign Reading Time Taken Comments Blood Pressure 168/108 11/25/2021 2:57 PM CDT Pulse 86 11/25/2021 2:57 PM CDT Temperature 36.3 C (97.4 F) 11/25/2021 2:57 PM CDT Respiratory Rate 18 09/19/2021 2:43 PM CDT Oxygen Saturation 100% 11/25/2021 2:57 PM CDT Inhaled Oxygen Concentration - - Weight 98 kg (216 lb) 11/25/2021 2:57 PM CDT Height 177.8 cm (5' 10) 09/18/2017 1:22 AM CDT Body Mass Index 30.99 09/18/2017 1:22 AM CDT Plan of Treatment Health Maintenance Due Date Last Done Comments COLOGUARD (AGES 45-75) - COLON CA SCREENING 1973 COLON MONITORING 1973 COLONOSCOPY - COLON CA SCREENING 1973 CT COLONOGRAPHY - COLON CA SCREENING 1973 Colorectal Cancer Screening 1973 FIT - COLON CA SCREENING 1973 FLEX SIG - COLON CA SCREENING 1973 LIPID TESTING 1973 HIB VACCINE (1 of 1 - Risk 1-dose series) 01/24/1975 MENINGOCOCCAL GROUPS A/C/Y/W VACCINE (1 - Risk 2-dose series) 10/25/1975 MENINGOCOCCAL (Group B) VACCINE SHARED DECISION-MAKING (1 of 4 - Increased Risk) 10/25/1983 DTAP/TDAP/TD VACCINES (1 - Tdap) 1992 HEPATITIS B VACCINE (1 of 3 - 19+ 3-dose series) 1992 PNEUMOCOCCAL VACCINE 50+ (1 of 2 - PCV) 1992 ZOSTER VACCINE (1 of 2) 10/25/2023 DEPRESSION SCREENING 03/08/2024 COVID-19 VACCINE (1 - 2023- season) 2024 INFLUENZA VACCINE (#1) 2024 HIV SCREENING Completed 09/19/2021 HEPATITIS C SCREENING Completed 02/20/2022 , 02/10/2022, 11/28/2021, Additional history exists HPV VACCINE Aged Out No longer eligi ble based on patient's age to complete this topic Goals Goal Patient Goal Type Associated Problems Recent Progress Patient-Stated? Author Medication Management General No Annie Ross, RN Note: Expected end date: ongoing Interventions: Take all medications as prescribed Let your doctor know right away about any changes in your medications Make sure to request a refill of your medication at least one week prior to your last dose Procedures Procedure Name Priority Date/Time Associated Diagnosis Comments HEPATITIS C RNA QUANTITATIVE Routine 02/20/2022 1:49 PM SHIP CAPTAIN Chronic hepatitis C without hepatic coma HIV-1 HIV-2 ANTIBODY + HIV P24 AG PANEL Routine 09/19/2021 3:54 PM CDT Hepatitis C antibody positive in blood from Last 3 Months or Most Recently Relevant to Health Maintenance Results * HEPATITIS C RNA QUANTITATIVE (02/20/2022 1:49 PM SHIP CAPTAIN) Pathologist [facility] Hepatitis C Virus RNA, Quantitative Real Time PCR <15 NOT DETECTED NOT DETECTED IU/mL [employer] Hepatitis C Virus RNA, Quantitative Real Time PCR <1.18 NOT DETECTED NOT DETECTED Log IU/mL [facility] Comment: This test was performed using Real-Time Polymerase Chain Reaction. Reportable Range: 15 IU/mL to 100,000,000 IU/mL (1.18 Log IU/mL to 8.00 Log IU/mL). The analytical performance characteristics of this assay have been determined by [employer] The modifications have not been cleared or approved by the FDA. This assay has been validated pursuant to the CLIA regulations and is used for clinical purposes. For more information on this test, go to: http://education.Essential View[employer]/faq/HCM70o0 (This link is being provided for informational/ educational purposes only.) REPORT COMMENT: PT CALLED BACK IN FOR A REDRAW FASTING:NO Test Performed at: [facility] [address] [place] [address] REYMUNDO SEO DO,MPH Blood BLOOD SPECIMEN / Unknown 02/20/2022 1:49 PM SHIP CAPTAIN 02/20/2022 1:50 PM SHIP CAPTAIN Christine Sorensen STATUS CONTROLLER-SEED PRODUCTION FIELD SUPERVISOR LAB - CHEMISTRY ORDE RABELIZABETH Final Result [facility] [address] [place] [address] * HIV-1 HIV-2 ANTIBODY + HIV P24 AG PANEL (09/19/2021 3:54 PM CDT) HIV Antigen/Antibod y 1 & 2 Non-reacti ve Non-react bandar 09/19/2021 4:51 PM CDT [facility] Comment:No Laboratory eviden ce of HIV infection. Blood BLOOD SPECIMEN / Unknown Lab Venipuncture / Unknown 09/19/2021 3:54 PM CDT 09/19/2021 4:00 PM CDT Christine Sorensen STATUS CONTROLLER-SEED PRODUCTION FIELD SUPERVISOR LAB - CHEMISTRY ORDE RABLES Final Result Performing Organization Address City/[facility]/ZIP Co de Phone Number [facility] [address] [place] [address], [facility] [phone] from Last 3 Months or Most Recently Relevant to Health Maintenance Insurance MEDICAID AETNA [facility]
--- OUTSIDE RECORDS SUMMARY | 2024-12-19 13:46 | XMS_ITS | Clinical Summary ---
Author Organization [facility] Address [address] [place] [phone] Phone Care Team Providers Care Fondant Puff Maker Name Role Phone Cody Tai MD Primary Care Provider Allergies Active Allergy Reactions Criticality Noted Date Comments Lisinopril Anaphylaxis High 06/19/2022 Sulfa (Sulfonamide Antibiotics) Swelling Low 04/08 Medications amLODIPine (NORVASC) 10 mg tablet 3 Active hydroCHLOROthi azide 50 mg tablet Take 50 mg by mouth daily. 3 Active traMADoL (ULTRAM) 50 mg tablet Take 50 mg by mouth every 6 hours as needed. 3 Active traZODone (DESYREL) 50 mg tablet TAKE 1 TABLET BY MOUTH EVERY DAY AT BEDTIME FOR INSOMNIA 3 Active testosterone cypionate (DEPO-TESTOSTE AZAR) 200 mg/mL Oil Inject 200 mg by intramuscular injection one time only. Active diclofenac sodium (VOLTAREN XR) 100 mg Extended Release 24 hour tablet Take 100 mg by mouth daily. 3 Active Active Problems No known active problems Social History Tobacco Use Types Packs/Day Years Used Date Smoking Tobacco: Every Day Cigarettes Tobacco Cessation:Ready to Q uit: Not Asked; Counseling Given: Not Answered Alcohol Use Standard Drinks/Week Comments No 0 (1 standard drink = 0.6 oz pur e alcohol) Sex and Gender Information Value Date Recorded Sex Assigned at Not on file Legal Sex Male 6:01 AM RUBBER PRESS TENDER Gender Identity Not on file Sexual Orientation Not on file Occupation Industry Job Start Date Job End Date Not on file Not on file Not on file Not on file Last Filed Vital Signs Vital Sign Reading Time Taken Comments Blood Pressure 139/89 03/24/2024 10:48 AM RUBBER PRESS TENDER Pulse 77 03/24/2024 10:48 AM RUBBER PRESS TENDER Temperature 36.6 C (97.9 F) 03/24/2024 10:48 AM RUBBER PRESS TENDER Respiratory Rate 17 03/24/2024 10:48 AM RUBBER PRESS TENDER Oxygen Saturation 95% 03/24/2024 10:48 AM RUBBER PRESS TENDER Inhaled Oxygen Concentration - - Weight 99.4 kg (219 lb 3.2 oz) 03/24/2024 10:48 AM RUBBER PRESS TENDER Height 177.8 cm (5' 10) 09/18/2022 10:57 AM CDT Body Mass Index 31.45 09/18/2022 10:57 AM CDT Plan of Treatment Upcoming Encounters Date Type Department Care Team (Late st Contact Info) Description 01/09/2025 2:15 PM RUBBER PRESS TENDER Office Visit [facility] Oncology and Hematology [facility] [address] [facility] [address] [place] [address] Davonte Clark MD [address] [place] [address] Health Maintenance Due Date Last Done Comments Pre-Diabetes and Diabetes Screening 1973 DTAP/TDAP/TD VACCINES (1 - Tdap) 1992 HEPATITIS B VACCINES (1 of 3 - 19+ 3-dose series) 10/06 COLORECTAL SCREENING 2018 Colorectal Cancer Screening 2018 FIT-DNA Q 3 years 2018 FIT/FOBT Q 1 year 2018 Flex Sig/CT Colonography Q 5 years 2018 ZOSTER VACCINE (1 of 2) 10/25/2023 INFLUENZA VACCINE (#1) 2024 Additional Health Concerns Infection Onset Date Last Indicated 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
--- OUTSIDE RECORDS SUMMARY | 2024-12-19 13:46 | XMS_ITS | Clinical Summary ---
Author Organization [facility] Address [address] [place] [address] Phone Care Team Providers Care Sheet Metal Journeyman Name Role Phone Unavailable Primary Care Provider Unavailabl e Allergies Active Allergy Reactions Criticality Noted Date Comments Sulfa Antibiotics Hives 04/21/2021 Medications GaviLyte-G 236 g Recon Soln TAKE DIRECTED. 03/02/2021 Active Social History Tobacco Use Types Packs/Day Years Used Date Smoking Tobacco: Former Smokeless Tobacco: Former Alcohol Use Standard Drinks/Week Comments Not Currently 0 (1 standard drink = 0.6 oz pur e alcohol) Sex and Gender Information Value Date Recorded Sex Assigned at Not on file Legal Sex Male 1:10 PM SUPERVISOR CORE SHOP Gender Identity Not on file Sexual Orientation Not on file Last Filed Vital Signs Vital Sign Reading Time Taken Comments Blood Pressure 145/74 04/21/2021 11:13 AM SUPERVISOR CORE SHOP Pulse 89 04/21/2021 11:13 AM SUPERVISOR CORE SHOP Temperature 36.4 C (97.6 F) 04/21/2021 10:15 AM SUPERVISOR CORE SHOP Respiratory Rate 18 04/21/2021 11:13 AM SUPERVISOR CORE SHOP Oxygen Saturation 98% 04/21/2021 11:13 AM SUPERVISOR CORE SHOP Inhaled Oxygen Concentration - - Weight 98 kg (216 lb) 04/21/2021 10:15 AM SUPERVISOR CORE SHOP Height 180.3 cm (5' 11) 04/21/2021 10:15 AM SUPERVISOR CORE SHOP Body Mass Index 30.13 04/21/2021 10:15 AM SUPERVISOR CORE SHOP Plan of Treatment Not on file Insurance MEDICAID AETNA [facility]
== END 2024-12-19 11:45 | disposition home or self-care (01) ==
LOC: ANHGOSHLAB 11:44
PROVIDERS: PCP Nurse Practitioner Family; Visit Provider Nurse Practitioner Family
DX: E55.9 Vitamin D deficiency, unspecified (principal); I10 Essential (primary) hypertension
CPT/HCPCS: 36415; 80053; 80061; 82306; 85025

== ENCOUNTER 2024-12-20 15:00 | Outpatient (CLI) | payer OTHER, SELFPAY ==
--- NOTE | ~2024-12-20 | XR_ITS ---
EXAMINATION: XR shoulder RT min 2V, 12/20/2024 15:00 CDT HISTORY: M25.511 - Pain in right shoulder COMPARISON: No comparisons available. Findings: No acute fracture or malalignment. No significant degenerative changes. Soft tissues unremarkable. Impression: No acute fracture or malalignment. Reviewed, dictated and finalized at location P. Impression: No acute fracture or malalignment.
--- NOTE | ~2024-12-20 | XR_ITS ---
XR lumbar spine min 4V Indication: M54.50 - Low back pain, unspecified Comparison: None Findings: The vertebral heights are intact. No fracture or subluxation. The disc heights are intact. Soft tissues unremarkable Impression: No acute abnormality. Reviewed, dictated and finalized at location P. Impression: No acute abnormality.
--- NOTE | ~2024-12-20 | XR_ITS ---
EXAMINATION: XR shoulder LT min 2V, 12/20/2024 15:00 CDT HISTORY: M25.511 - Pain in right shoulder COMPARISON: No comparisons available. Findings: No acute fracture or malalignment. No significant degenerative changes. Soft tissues unremarkable. Impression: No acute fracture or malalignment. Reviewed, dictated and finalized at location P. Impression: No acute fracture or malalignment.
--- OUTSIDE RECORDS SUMMARY | 2024-12-20 17:13 | XMS_ITS | Clinical Summary ---
Author Organization [facility] Address [address] [place] [phone] Phone Care Team Providers Care Customer Sales Advisor Name Role Phone Cody Tai MD Primary [...] on file Legal Sex Male 6:01 AM NCA CERTIFIED CONCIERGE Gender Identity Not on file Sexual Orientation Not on file Occupation Industry Job Start Date Job End Date Not on file Not on file Not on file Not on file Last Filed Vital Signs Vital Sign Reading Time Taken Comments Blood Pressure 139/89 03/24/2024 10:48 AM NCA CERTIFIED CONCIERGE Pulse 77 03/24/2024 10:48 AM NCA CERTIFIED CONCIERGE Temperature 36.6 C (97.9 F) 03/24/2024 10:48 AM NCA CERTIFIED CONCIERGE Respiratory Rate 17 03/24/2024 10:48 AM NCA CERTIFIED CONCIERGE Oxygen Saturation 95% 03/24/2024 10:48 AM NCA CERTIFIED CONCIERGE Inhaled Oxygen Concentration - - Weight 99.4 kg (219 lb 3.2 oz) 03/24/2024 10:48 AM NCA CERTIFIED CONCIERGE Height 177.8 cm (5' 10) 09/18/2022 10:57 AM CDT Body Mass Index 31.45 09/18/2022 10:57 AM CDT Plan of Treatment Upcoming Encounters Date Type Department Care Team (Late st Contact Info) Description 01/09/2025 2:15 PM NCA CERTIFIED CONCIERGE Office Visit [facility] Oncology and Hematology [facility] [address] [address] [place] [address] Davonte Clark MD [address] [address] [place] [address] Health Maintenance Due Date Last [...] Comment:04/27/13 abscess buttock left 05/01/2013 05/01/2013 Insurance [facility] MEDICAID [facility] MEDICAID Care Teams Customer Sales Advisor Relationship Specialty Start Date End Date Cody Tai MD [address] [place] [address] PCP - General Family Practice 05/21/22
--- OUTSIDE RECORDS SUMMARY | 2024-12-20 17:13 | XMS_ITS | Clinical Summary ---
Author Organization [facility] Address [address] [place] [address] Care Team Providers Care Elementary School Music Teacher Name Role Phone Unavailable Primary Care Provider Unavailabl e Source Comments [facility],non-owned Affiliates and Associated Physician Practices is amultiple site organization consisting of ambulatory clinics and hospital sitesin [place], [place], [place] and [place]. This disclosure is being madepursuant to the Care Everywhere program and may not contain all information available regarding this patient. Last updated 17.[facility] Allergies Active Allergy Reactions Criticality Noted Date [...] on file Legal Sex Male 5:38 PM SHUTTLELESS LOOM WEAVER Gender Identity Not on file Sexual Orientation [...] C RNA QUANTITATIVE Routine 02/20/2022 1:49 PM SHUTTLELESS LOOM WEAVER Chronic hepatitis C without hepatic coma HIV-1 HIV-2 ANTIBODY + HIV P24 AG PANEL Routine 09/19/2021 3:54 PM CDT Hepatitis C antibody positive in blood from Last 3 Months or Most Recently Relevant to Health Maintenance Results * HEPATITIS C RNA QUANTITATIVE (02/20/2022 1:49 PM SHUTTLELESS LOOM WEAVER) Pathologist [facility] Hepatitis C Virus RNA, Quantitative Real Time PCR <15 NOT DETECTED NOT DETECTED IU/mL [employer] Hepatitis C Virus RNA, Quantitative Real Time PCR <1.18 NOT DETECTED NOT DETECTED Log IU/mL [facility] Comment: This test was performed using Real-Time Polymerase Chain Reaction. Reportable Range: 15 IU/mL to 100,000,000 IU/mL (1.18 Log IU/mL to 8.00 Log IU/mL). The analytical performance characteristics of this assay have been determined by [employer]. The modifications have not been cleared or approved by the FDA. This assay has been validated pursuant to the CLIA regulations and is used for clinical purposes. For more information on this test, go to: http://education.[employer]/faq/KPT22n9 (This link is being provided for informational/ educational purposes only.) REPORT COMMENT: PT CALLED BACK IN FOR A REDRAW FASTING:NO Test Performed at: [facility] [address] [place] [address] REYMUNDO ESO DO,MPH Blood BLOOD SPECIMEN / Unknown 02/20/2022 1:49 PM SHUTTLELESS LOOM WEAVER 02/20/2022 1:50 PM SHUTTLELESS LOOM WEAVER Christine Sorensen DOWEL MACHINE OPERATOR-MANAGER RELATIONSHIP LAB - CHEMISTRY ORDE RABELIZABETH Final Result [facility] [address] [place] [address] * HIV-1 HIV-2 ANTIBODY + HIV P24 AG PANEL (09/19/2021 3:54 PM CDT) HIV Antigen/Antibod y 1 & 2 Non-reacti ve Non-react bandar 09/19/2021 4:51 PM CDT [facility] Comment:No Laboratory eviden ce of HIV infection. Blood BLOOD SPECIMEN / Unknown Lab Venipuncture / Unknown 09/19/2021 3:54 PM CDT 09/19/2021 4:00 PM CDT Christine Sorensen DOWEL MACHINE OPERATOR-MANAGER RELATIONSHIP LAB - CHEMISTRY ORDE RABLES Final Result Performing Organization Address City/[facility]/ZIP Co de Phone Number [facility] [address] [place] [address], [facility] [phone] from Last 3 Months or Most Recently Relevant to Health Maintenance Insurance MEDICAID AETNA [facility]
--- OUTSIDE RECORDS SUMMARY | 2024-12-20 17:13 | XMS_ITS | Clinical Summary ---
Author Organization [facility] Address [address] [place] [address] Phone Care Team Providers Care Green Chain Worker Name Role Phone Unavailable Primary Care Provider [...] on file Legal Sex Male 1:10 PM SYSTEMS INTEGRATION ANALYST Gender Identity Not on file Sexual Orientation Not on file Last Filed Vital Signs Vital Sign Reading Time Taken Comments Blood Pressure 145/74 04/21/2021 11:13 AM SYSTEMS INTEGRATION ANALYST Pulse 89 04/21/2021 11:13 AM SYSTEMS INTEGRATION ANALYST Temperature 36.4 C (97.6 F) 04/21/2021 10:15 AM SYSTEMS INTEGRATION ANALYST Respiratory Rate 18 04/21/2021 11:13 AM SYSTEMS INTEGRATION ANALYST Oxygen Saturation 98% 04/21/2021 11:13 AM SYSTEMS INTEGRATION ANALYST Inhaled Oxygen Concentration - - Weight 98 kg (216 lb) 04/21/2021 10:15 AM SYSTEMS INTEGRATION ANALYST Height 180.3 cm (5' 11) 04/21/2021 10:15 AM SYSTEMS INTEGRATION ANALYST Body Mass Index 30.13 04/21/2021 10:15 AM SYSTEMS INTEGRATION ANALYST Plan of Treatment Not on file Insurance MEDICAID AETNA [facility]
== END 2024-12-20 15:01 | disposition home or self-care (01) ==
PROVIDERS: PCP Family Medicine; Visit Provider Family Medicine
DX: M25.511 Pain in right shoulder (principal); M25.512 Pain in left shoulder; M54.50 Low back pain, unspecified
CPT/HCPCS: 72110; 73030